=== PATIENT | female | born 1990 | race Caucasian/White ===

== ENCOUNTER 2016-10-23 17:21 | Emergency (ER) | payer MEDICAID ==
[2016-10-23] MEDS ORDERED: LIDOCAINE 1%-EPI 1:100000 20 ML MDV ONE (17:56)
[2016-10-23] MEDS ORDERED: SODIUM CHLORIDE 0.9% 1,000 ML IV ONE (18:07)
[2016-10-23] MEDS ORDERED: ONDANSETRON 4 MG/2 ML VIAL IVP STA (18:07)
[2016-10-23] MEDS ORDERED: ONDANSETRON 4 MG/2 ML VIAL ONE (18:23)
[2016-10-23] MEDS ORDERED: PROPOFOL 200 MG/20 ML VIAL IVP ONE (18:33)
[2016-10-23] MEDS ORDERED: PROPOFOL 200 MG/20 ML VIAL IVP STA (18:51)
[2016-10-23] MEDS ORDERED: KETOROLAC 60 MG/2 ML VIAL IVP STA (19:21)
[2016-10-23] MEDS ORDERED: KETOROLAC 30 MG/ML VIAL ONE (19:32)
[2016-10-23] MEDS ORDERED: PROMETHAZINE 25 MG/1 ML VIAL ONE (19:59)
[2016-10-23] MEDS ORDERED: oxyCOD/ACETAMIN 5 MG/325 MG TABLET PO STA (19:59)
[2016-10-23] MEDS ORDERED: PROMETHAZINE INJ 25 MG in SODIUM CHLORIDE 0.9% 50 ML IV STA (19:59)
[2016-10-23] MEDS ORDERED: oxyCOD/ACETAMIN 5 MG/325 MG TABLET PO ONE (20:00)
== END 2016-10-23 20:18 | disposition home or self-care (01) ==
DX: S03.03XA Dislocation of jaw, bilateral, initial encounter (principal); X58.XXXA Exposure to other specified factors, initial encounter; R11.2 Nausea with vomiting, unspecified; I10 Essential (primary) hypertension; Z86.73 Personal history of transient ischemic attack (TIA), and cerebral infarction without residual deficits; F17.200 Nicotine dependence, unspecified, uncomplicated
CPT/HCPCS: 21480; 36415; 80053; 81003; 81025; 83690; 94770; 96365; 96375; 99152; 99283; 99284; A9270

== ENCOUNTER 2017-05-03 14:45 | Observation (INO) | payer MEDICAID ==
[2017-05-03 16:56] LABS: BILIRUBIN,URINE NEGATIVE (NEGATIVE)
[2017-05-03 17:00] LABS: HCG UR QUAL NEGATIVE; UA CHARGE (STRIP ONLY) YES; UR CULTURE IF IND NOT INDICATED
[2017-05-03] MEDS ORDERED: SODIUM CHLORIDE 0.9% 1,000 ML IV ONE (17:20)
--- NOTE | 2017-05-03 17:28 | ED Physician Documentation ---
History of Present Illness - Stated complaint Stated Complaint: DIARRHEA,BODY NUMBNESS - Chief complaint Chief Complaint: Abd Pain - History obtained from History obtained from: Patient - History of Present Illness Timing: Other (26-year-old woman with recurrent C. difficile infection, finished last course of antibiotics, vancomycin about a week ago but she has persistent diarrhea, stomach cramps, and vomiting. Today at approximately 2:20 PM she had a sudden onset occipital headache and developed right-sided numbness and tingling but she is able to walk. It is different than prior headaches, more sudden in onset. There is no associated fever acutely but she has been having fevers on and off with the C. difficile.) Review of Systems Ten Systems: 10 systems reviewed and negative Constitutional: reports: Fever, Chills Nose: denies: Rhinorrhea / runny nose, Congestion Cardiac: denies: Chest pain / pressure, Palpitations Respiratory: denies: Dyspnea, Cough PD PAST MEDICAL HISTORY - Past Medical History Past Medical History: Yes Cardiovascular: Hypertension Respiratory: Asthma Neuro: TIA, Headache/migraine Endocrine/Autoimmune: None GI: None [employer]: Other : None HEENT: None Psych: Depression, Anxiety Musculoskeletal: None Derm: None - Past Surgical History Past Surgical History: No /F[employer]KE [employer]: section, Tubal ligation - Present Medications Home Medications: Ambulatory Orders Medication Instructions Recorded Confirmed Enalapril [Vasotec] 10 mg PO DAILY 05/06/16 10/23/16 Labetalol [Trandate] 200 mg PO BID 05/06/16 10/23/16 Sertraline HCl [Zoloft] 100 mg PO DAILY 05/06/16 10/23/16 cloNIDine 0.1 MG PATCH 1 patch TOP TITR 06/18/16 10/23/16 [[id number]] Ibuprofen [Motrin] 800 mg PO Q8H PRN #30 tablet 08/01/16 Progesterone,Micronized 10 mg PO DAILY 08/01/16 10/23/16 [Progesterone] Meloxicam [Mobic] 7.5 mg PO BIDWM PRN #15 tablet 10/23/16 Ondansetron HCl [Zofran] 4 mg PO Q6H PRN #10 tablet 10/23/16 - Allergies Allergies/Adverse Reactions: Allergies Allergy/AdvReac Type Severity Reaction Status Date / Time No Known Drug Allergies Allergy Verified 10/23/16 17:28 - Social History Does the pt smoke?: Yes Smoking Status: Light tobacco smoker Does the pt drink ETOH?: No Does the pt have substance abuse?: No - Immunizations Immunizations are current?: Yes - POLST Patient has POLST: No PD ED PE NORMAL - Vitals Vital signs reviewed: Yes - General General: Alert and oriented X 3, No acute distress - HEENT HEENT: PERRL, EOMI - Neck Neck: Supple, no meningeal sign, No bony TTP - Cardiac Cardiac: RRR, No murmur - Respiratory Respiratory: No respiratory distress, Clear bilaterally - Abdomen Abdomen: Normal bowel sounds, Soft, Non tender - Derm Derm: Normal color, Warm and dry - Extremities Extremities: No edema, No calf tenderness / cord - Neuro Neuro: Alert and oriented X 3, No motor deficit, No sensory deficit, Normal speech - Psych Psych: Normal mood, Normal affect Results - Vitals Vitals: Vital Signs - 24 hr 05/03/17 05/03/17 05/03/17 15:02 15:18 16:48 Temperature 36.6 C Heart Rate 107 H 118 H 110 H Respiratory 18 18 17 Rate Blood Pressure 170/127 H 166/120 H 152/98 H O2 Saturation 100 100 99 05/03/17 05/03/17 05/03/17 19:00 19:01 19:15 Temperature 36.6 C Heart Rate 87 Respiratory 16 Rate Blood Pressure 170/96 H 172/113 H 162/92 H O2 Saturation 99 100 99 05/03/17 05/03/17 05/03/17 19:30 20:10 20:15 Temperature Heart Rate Respiratory Rate Blood Pressure 148/90 H 125/83 H 128/63 O2 Saturation 99 99 98 05/03/17 05/03/17 20:45 21:15 Temperature Heart Rate 66 Respiratory Rate Blood Pressure 126/79 126/82 H O2 Saturation 99 98 Oxygen O2 Source Room air - Labs Labs: Microbiology 05/03/17 Unknown Clostridium difficile (PCR) - Final Stool Laboratory Tests 05/03/17 05/03/17 05/03/17 16:35 17:57 17:57 WBC 7.4 RBC 4.75 Hgb 11.0 L Hct 34.3 L MCV 72.3 L MCH 23.1 L MCHC 32.0 RDW 18.9 H Plt Count 253 MPV 8.9 Neut # 4.6 Lymph # 2.1 [place] # 0.5 Eos # 0.1 Baso # 0.1 Absolute Nucleated RBC 0.01 Nucleated RBCs 0.1 PT 9.7 L INR 0.9 Sodium Potassium Chloride Carbon Dioxide Anion Gap BUN Creatinine Estimated GFR (MDRD) Glucose Calcium Total Bilirubin AST ALT Alkaline Phosphatase Total Protein Albumin Globulin Albumin/Globulin Ratio Lipase Urine Color YELLOW Urine Clarity CLEAR Urine pH 7.0 Ur Specific [place] 1.020 Urine Protein NEGATIVE Urine Glucose (UA) NEGATIVE Urine Ketones NEGATIVE Urine Occult Blood NEGATIVE Urine Nitrite NEGATIVE Urine Bilirubin NEGATIVE Urine Urobilinogen 0.2 (NORMAL) Ur Leukocyte Esterase NEGATIVE Ur Microscopic Review NOT INDICATED Urine Culture Comments NOT INDICATED Urine HCG, Qual NEGATIVE CSF Color CSF Clarity Xanthrochromic CSF WBC CSF RBC CSF Cell Count Tube # CSF Glucose CSF Total Protein 05/03/17 05/03/17 17:57 21:05 WBC RBC Hgb Hct MCV MCH MCHC RDW Plt Count MPV Neut # Lymph # [place] # Eos # Baso # Absolute Nucleated RBC Nucleated RBCs PT INR Sodium 138 Potassium 3.7 Chloride 105 Carbon Dioxide 22 Anion Gap 11.0 BUN 18 Creatinine 0.6 Estimated GFR (MDRD) 119 Glucose 101 H Calcium 9.2 Total Bilirubin 0.5 AST 22 ALT 19 Alkaline Phosphatase 50 Total Protein 7.4 Albumin 4.2 Globulin 3.2 Albumin/Globulin Ratio 1.3 Lipase 25 Urine Color Urine Clarity Urine pH Ur Specific [place] Urine Protein Urine Glucose (UA) Urine Ketones Urine Occult Blood Urine Nitrite Urine Bilirubin Urine Urobilinogen Ur Leukocyte Esterase Ur Microscopic Review Urine Culture Comments Urine HCG, Qual CSF Color COLORLESS CSF Clarity CLEAR Xanthrochromic ABSENT CSF WBC 1 CSF RBC 7 H CSF Cell Count Tube # CSF TUBE# 3 CSF Glucose 60 CSF Total Protein 28 - Rads (name of study) CThead with angio Radiology: EMP read contemporaneously (negative) Procedures - General procedure General procedure: She was difficult for IV access, multiple nurses tried and failed. I personally put a long 20-gauge IV in the right deep brachial vein using real- time ultrasound guidance which flushed and dariana well. - Lumbar Puncture Position: Sitting Location: L3-L4 Anesthesia: Local lidocaine CSF: Clear Other: Sterile prep and drape, Patient tolerated well, No complications PD MEDICAL DECISION MAKING - ED course ED course: 26-year-old woman presents with acute onset severe headache associated with right-sided neurologic deficits. Given the concern for subarachnoid hemorrhage given the severe sudden onset headache TPA was not considered. She was sent for CT angina gram of the head and this demonstrated no abnormalities, this was followed by an LP which was without significant abnormalities as well. Throughout this time she was examined repeatedly and there was no significant change in her neurologic findings. We treated her for migraine with Compazine and Benadryl without change in her headache was persistent. Spoke with Dr. Fair for observation at 9:55 PM who asked that we consult neurology given her young age and atypical findings which will be done. Spoke with Dr. Melba Quintana at [facility] and the case was discussed who agreed with observation for MRI and MRV which was passed along to Dr. Fair. Departure - Departure Disposition: ED Place in Observation Clinical Impression: Headache, Stroke-like episode Condition: Stable NIHSS - Level of Consciousness Level of consciousness: (0) Alert, Keenly responsive LOC Questions: (0) Answers both Q's correct LOC Commands: (0) Performs both correctly - Gaze Best Gaze: (0) Normal - Visual Visual: (0) No loss - Facial Palsy Facial Palsy: (1) Minor paralysis (right) - Motor Arms (both separate) Motor Arm (right): (1) Drift (but not pronator) Motor Arm (left): (0) No drift - Motor Legs (both separate) Motor Leg (right): (1) Drift Motor Leg (left): (0) No drift - Limb Ataxia Limb Ataxia: (0) Absent - Sensory Sensory: (1) [id number] loss (right side throughout- face, arm, leg) - Best Language Best Language: (0) No aphasia - Dysarthria Dysarthria: (0) Normal - Extinction and Inattention (formally neg Extinction and inattention: (0) No abnormality - Total Score/Results Total Score/Result: 4
[2017-05-03] MEDS ORDERED: IOPAMIDOL-300 100 ML VIAL ONE (17:30)
[2017-05-03] MEDS ORDERED: SODIUM CHLORIDE FLUSH 0.9% 10 ML SYRINGE IVP ONE (17:38)
[2017-05-03 18:05] LABS: BASOPHILS # (AUTO) 0.1 10^3/uL (0.0-0.1); BASOPHILS % (AUTO) 0.9 %; EOSINOPHILS # (AUTO) 0.1 10^3/uL (0.0-0.7); EOSINOPHILS % (AUTO) 1.5 %; HCT - HEMATOCRIT 34.3 % (37.0-47.0); LYMPHOCYTES # (AUTO) 2.1 10^3/uL (1.5-3.5); LYMPHOCYTES % (AUTO) 28.8 %; MEAN CORPUSCULAR HEMOGLOBIN 23.1 pg (27.0-31.0); MEAN CORPUSCULAR VOLUME 72.3 fL (81.0-99.0); MEAN PLATELET VOLUME 8.9 fL (7.9-10.8); MONOCYTES # (AUTO) 0.5 10^3/uL (0.0-1.0); MONOCYTES % (AUTO) 6.6 %; NEUTROPHILS # (AUTO) 4.6 10^3/uL (1.5-6.6); NEUTROPHILS % (AUTO) 62.2 %; NUCLEATED RED BLOOD CELLS AUTO 0.1 /100WBC; RED BLOOD COUNT 4.75 10^6/uL (4.20-5.40); RED CELL DISTRIBUTION WIDTH 18.9 % (12.0-15.0); UNCORRECTED WHITE BLOOD COUNT 7.4 x10^3/uL; WHITE BLOOD COUNT 7.4 x10^3/uL (4.8-10.8)
[2017-05-03 18:18] LABS: ALBUMIN/GLOBULIN RATIO 1.3 (1.0-2.2); BILIRUBIN,TOTAL 0.5 mg/dL (0.2-1.0); CALCIUM 9.2 mg/dL (8.5-10.3); CREATININE 0.6 mg/dL (0.4-1.0); POTASSIUM 3.7 mmol/L (3.5-5.0); TOTAL PROTEIN 7.4 g/dL (6.7-8.2)
[2017-05-03 18:20] LABS: INR 0.9 (0.8-1.2); PT - PROTHROMBIN TIME 9.7 secs (9.9-12.6)
[2017-05-03] MEDS ORDERED: LABETALOL 20 MG/4 ML SYRINGE IVP STA (18:39)
[2017-05-03] MEDS ORDERED: MORPHINE 2 MG/ML SYRINGE IVP STA (18:39)
[2017-05-03] MEDS ORDERED: IOPAMIDOL-300 100 ML VIAL IVP ONE (18:47)
[2017-05-03] MEDS ORDERED: MORPHINE 2 MG/ML SYRINGE ONE ×2 (19:10→19:34)
[2017-05-03] MEDS ORDERED: LABETALOL 20 MG/4 ML SYRINGE IVP ONE (19:11)
--- NOTE | 2017-05-03 19:33 | CT Preliminary Report ---
Exam: CT Head Angio Impression: Head CT No acute intracranial pathology is identified. CT angiogram head Normal examination. SITE ID: [id number]
[2017-05-03] MEDS ORDERED: diphenhydrAMINE INJ 50 MG/ML VIAL IVP STA (19:54)
[2017-05-03] MEDS ORDERED: PROCHLORPERAZINE 10 MG/2 ML VIAL IVP STA (19:54)
[2017-05-03] MEDS ORDERED: PROCHLORPERAZINE 10 MG/2 ML VIAL ONE (20:08)
[2017-05-03] MEDS ORDERED: diphenhydrAMINE INJ 50 MG/ML VIAL ONE (20:08)
--- NOTE | 2017-05-03 20:16 | CT Report ---
CT HEAD WITHOUT AND WITH CONTRAST AND CT ANGIOGRAM HEAD INDICATION: 26-year-old female with "right-sided deficits". Please assess. TECHNIQUE: Head CT: Sequential 5 mm axial images were obtained through the brain, prior to and following the CT angiogram . CT angiogram head: 80 mL of Isovue-300 contrast were injected at a rapid rate through a large bore antecubital intraveno us catheter. The head was scanned helically during arterial phase. Data was reconstructed into 0.5 mm axial images. In addition, MIP reconstructions have been generated in multiple projections to allow better assessment of the intracranial arteries. In accordance with CT protocol optimization, one or more of the following dose reduction techniques w ere utilized for this exam: automated exposure control, adjustment of mA and/or KV based on patient s ize, or use of iterative reconstructive technique. COMPARISON: 06/02/2016. FINDINGS: There is cerebellar tonsillar ectopia. The tonsils descend into the foramen magnum. There appears to be mild descent of the right tonsil below the plane of the tonsil below the plane of the foramen magn um suggesting that a Chiari I malformation is unlikely. Ventricular size is normal. There appears to be poor sears-white differentiation in the anterior frontal lobes bilaterally (see im age 11 of series 3). However, the findings are similar to the previous study, suggesting that this re presents artifact, rather than ischemia or other pathology. Attenuation of cortex white matter is oth erwise unremarkable. No intracranial hemorrhage or abnormal extra-axial fluid collection. No enhancing space-occupying mass lesion is demonstrated. There appears to be normal intravascular co ntrast enhancement in the dural venous sinuses and deep venous structures. This effectively excludes the possibility of venous thrombosis. The mastoid air cells and middle ear cavities are clear. The imaged paranasal sinuses appear clear. CT angiogram head: Anterior circulation: The internal carotid arteries appear widely patent bilaterally. No ICA aneurysm is identified. The A1 segments of the anterior cerebral arteries are codominant. An anterior communicating artery is demon strated. There appears to be good filling of the A2 and distal ZEYAD branches bilaterally. No obvious A CA branch occlusion is identified. The middle cerebral arteries are unremarkable. No aneurysm is identified and there is no obvious occl usion or hemodynamically significant stenosis affecting main branches of either MCA. There appear to be a similar number of opacified M3 and M4 branches bilaterally. Posterior circulation: The vertebral arteries are widely patent. Neither PICA is identified. The PICA territories appear to be supplied by the AICAs (normal anatomical variants). The basilar artery, superior cerebellar arteri es and posterior cerebral arteries appear widely patent. There is a moderate-sized left posterior com municating artery. No obvious right posterior communicator is demonstrated. No aneurysms are seen jzaiel sing from the basilar artery trunk or apex. IMPRESSION: Head CT: No acute intracranial pathology is identified. CT angiogram head: Normal examination. Referring Provider Line: [phone] SITE ID: [id number]
[2017-05-03] MEDS ORDERED: HYDROmorphone 1 MG/ML CARPUJECT IVP STA (20:51)
[2017-05-03] MEDS ORDERED: HYDROmorphone 1 MG/ML CARPUJECT ONE (20:56)
[2017-05-03 21:35] LABS: CLARITY,CSF CLEAR (CLEAR); COLOR,CSF COLORLESS (COLORLESS); CSF XANTHOCHROMIA ABSENT (ABSENT)
[2017-05-03 21:36] LABS: WHITE BLOOD CELL,CSF 1 /mm^3 (0-5)
[2017-05-03 21:41] LABS: CSF - GLUCOSE 60 mg/dL (45-70)
[2017-05-03] MEDS ORDERED: KETOROLAC 60 MG/2 ML VIAL IVP STA (21:53)
[2017-05-03] MEDS ORDERED: KETOROLAC 60 MG/2 ML VIAL ONE (22:14)
[2017-05-03] MEDS ORDERED: MELOXICAM 7.5 MG TABLET PO PRN (22:20)
[2017-05-03] MEDS ORDERED: IBUPROFEN 800 MG TABLET PO PRN (22:20)
[2017-05-03] MEDS ORDERED: ZOLPIDEM 5 MG TABLET PO PRN (22:21)
[2017-05-03] MEDS ORDERED: ACETAMINOPHEN 325 MG TABLET PO PRN (22:21)
[2017-05-03] MEDS ORDERED: SUMAtriptan 6 MG/0.5 ML VIAL SUBQ SCH (23:00)
[2017-05-03] MEDS: oxyCODONE 5 MG TABLET PO PRN (23:54)
[2017-05-04] MEDS ORDERED: SUMAtriptan 6 MG/0.5 ML VIAL SUBQ ONE (00:08)
[2017-05-04] MEDS: HYDROmorphone 1 MG/ML CARPUJECT IVP PRN ×4 (01:22→12:50)
[2017-05-04] MEDS: SODIUM CHLORIDE FLUSH 0.9% 10 ML SYRINGE IVP PRN ×5 (01:23→15:48)
--- NOTE | 2017-05-04 02:18 | HISTORY & PHYSICAL EXAMINATION ---
Chief Complaint - Chief Complaint Chief Complaint: Headache History of Present Illness - Admitted From Admitted From:: Emergency department - History Obtained From Records Reviewed: Yes History obtained from: Patient Exam Limitations: None - History of Present Illness HPI Comment/Other: Patient is a 26-year-old female with a past medical history significant for hypertension, migraine headaches, fibromyalgia, recurrent Clostridium difficile over the last year and chronic abdominal pain secondary to the C. difficile who presents to the emergency department with a chief complaint of headache. The patient states that this afternoon around 2 PM she began having some abdominal cramping and had an episode of diarrhea after which she took a bath. She states that right after she finished her bath she began having a headache. She states the headache started in the posterior part of her head and went down her neck. She states that the headache acutely went to becoming the most severe headache she has ever had. She rated it at 10 out of 10. She states that along with the headache she began to feel numbness down her right arm and leg but she denies any weakness at that time. She states that her mother of a brain aneurysm and therefore she became very concerned and decided to come into the emergency department. She states that initially she felt numbness and tingling down her right arm and leg but when she was examined in the emergency department she noticed that she had weakness of both her right arm and leg along with a right facial droop. The patient denies any blurred vision, diplopia, runny nose, sore throat, nasal congestion, chest pain, shortness of air, orthopnea, PND, increased lower extremity swelling, she does admit to some abdominal cramping, she admits to diarrhea, she denies any nausea or vomiting, she denies any urinary urgency, frequency, dysuria, joint pains, muscle aches, back pain, she does admit to some neck stiffness she denies any changes in her appetite, recent unintentional weight loss, fevers or chills. On presentation to the emergency department the patient was tachycardic and hypertensive with blood pressure of 170/127 otherwise she was afebrile and not in any respiratory distress. The patient initially underwent routine lab work which showed a mild anemia otherwise was unremarkable. The patient's urinalysis was negative. She underwent a CT head and angiogram of her brain which showed no acute intracranial abnormality. The patient then underwent a lumbar puncture which showed just 1 WBC and 7 RBCs but appeared unremarkable. The emergency room physician spoke with neurology at [facility] and the neurologist on-call recommended that the patient be placed in observation for an MRI and MRV of the brain. It was felt that the patient most likely had a complex migraine causing her right-sided weakness and loss of sensation on the right side. However it was felt that the patient needed a complete workup to rule out stroke. 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 Social History Notes: The patient lives in [place] she grew up in on [facility] as her dad was in the . The patient lives with her boyfriend they are not but she has 3 children with her boyfriend. She has been 5 times. She does smoke 3-4 cigarettes a day since the age of 18 she does drink an occasional glass of wine with dinner and does indulge in marijuana. edibles. - Substance History Use: Uses substance without health or social issues: Tobacco Abuse: Recurrent use of substance despite neg consequences: NONE Dependence: Experiences withdrawal or developed tolerances: NONE - POLST Patient has POLST: No POLST Status: Full Code Meds/Allgy - Home Medications Home Medications: Ambulatory Orders Medication Instructions Recorded Confirmed Enalapril [Vasotec] 10 mg PO DAILY 05/06/16 10/23/16 Labetalol [Trandate] 200 mg PO BID 05/06/16 10/23/16 Sertraline HCl [Zoloft] 100 mg PO DAILY 05/06/16 10/23/16 cloNIDine 0.1 MG PATCH 1 patch TOP TITR 06/18/16 10/23/16 [[id number]] Ibuprofen [Motrin] 800 mg PO Q8H PRN #30 tablet 08/01/16 Progesterone,Micronized 10 mg PO DAILY 08/01/16 10/23/16 [Progesterone] Meloxicam [Mobic] 7.5 mg PO BIDWM PRN #15 tablet 10/23/16 Ondansetron HCl [Zofran] 4 mg PO Q6H PRN #10 tablet 10/23/16 - Allergies Allergies/Adverse Reactions: Allergies Allergy/AdvReac Type Severity Reaction Status Date / Time No Known Drug Allergies Allergy Verified 10/23/16 17:28 Review of Systems - Other Findings Other Findings: A comprehensive review of systems was performed the pertinent positives and negatives are stated above in the HPI Exam - Vital Signs Reviewed Vital Signs: Yes Vital Signs: Vital Signs x48h Temp Pulse Resp BP Pulse Ox 05/04/17 01:00 36.6 C 76 18 123/79 98 05/03/17 23:06 36.6 C 76 19 157/90 H 99 - Physical Exam General Appearance: positive: No acute distress, Alert Eyes Bilateral: positive: Normal inspection, PERRL, EOMI, No lid inflammation, Conjunctivae nml, No scleral icterus ENT: positive: ENT inspection nml, Pharynx nml, No signs of dehydration. negative: Purulent nasal drainage, Pharyngeal erythema, Oral lesions Neck: positive: Nml inspection, Thyroid nml, No JVD, Trachea midline, Stiff neck. negative: Thyromegaly, Lymphadenopathy (R), Lymphadenopathy (L), Kernig' s sign, Brudzinski's sign, Carotid bruit, Tracheal deviation Respiratory: positive: Chest non-tender, No respiratory distress, Breath sounds nml. negative: Wheezes, Rales, Rhonchi Cardiovascular: positive: Regular rate & rhythm, No murmur, No gallop Peripheral Pulses: positive: 2+ Abdomen: positive: Non-tender, No organomegaly, Nml bowel sounds, No distention. negative: Guarding, Rebound, Hepatomegaly Back: positive: Nml inspection. negative: CVA tenderness (R), CVA tenderness (L ) Skin: positive: Color nml, No rash, Warm. negative: Cyanosis, Pallor Extremities: positive: Non-tender, Full ROM, Nml appearance, No pedal edema Neurologic/Psychiatric: positive: Oriented x3, Mood/affect nml, Weakness (Right upper and lower extremity are 4/5 strength), Sensory loss (Right upper and lower extremity), Facial droop (Right) Conclusion/Plan - Problem List (1) Right sided weakness Conclusion/Plan: The patient presented to the emergency department with a headache and right- sided numbness. On examination the patient was found to have right arm and leg weakness along with a right facial droop. Patient underwent CT head and CT angiogram of the brain both of which were negative. Patient also underwent a lumbar puncture which was negative. Neurology at [facility] was consulted and neurologist recommended MRI and MRV along with observation for neuro checks. She felt the patient likely had complex migraine but could not rule out stroke without further evaluation. Plan: Neurochecks every 4 hours MRI and MRV of the brain Echocardiogram Telemetry monitoring Imitrex for migraine headache Aspirin 325 mg and Lipitor 80 mg Lipid profile and hbA1C Allow for permissive hypertension (2) Headache Conclusion/Plan: Patient presented with headache. The patient does have history of migraines and is on Topamax at home. She states that despite the Topamax she had the worst headache of her life. The patient also had right-sided weakness and facial droop along with right-sided sensory loss associated with the headache. Patient appears to most likely had complex migraine versus stroke. Patient underwent a CT head and CT angiogram brain which were negative. Plan: Place patient on Imitrex for migraine and ibuprofen as needed Neurochecks every 4 hours Patient will likely need outpatient neurology follow-up for complex migraines. MRI and MRV of the brain (3) Hypertension Conclusion/Plan: Patient has history of hypertension. Patient's blood pressure baric poorly controlled on presentation. Given the patient's focal neurologic deficits this was concerning for possibility of stroke. Plan: Continue patient's home labetalol and enalapril but allow for permissive hypertension with goal blood pressure less than 190 systolic and 105 diastolic. Qualifiers: Hypertension type: essential hypertension Qualified Code(s): I10 - Essential (primary) hypertension (4) Chronic pain Conclusion/Plan: Patient has chronic pain. She states that her pain is in the abdomen and has been there for the last year secondary to recurrent C. difficile. Patient's C. difficile has been treated multiple times including recent course of vancomycin which the patient is completed. Patient continues to have diarrhea and abdominal cramping but C. difficile on presentation was negative. Plan: Patient takes oxycodone at home while she is hospitalized will be placed on as needed ibuprofen, oxycodone and Dilaudid. - Lab Results Lab results reviewed: Yes Fish Bones: 05/03/17 17:57 05/03/17 17:57 Other Lab Results: Laboratory Results WBC 7.4 x10^3/uL (4.8-10.8) 05/03/17 17:57 RBC 4.75 10^6/uL (4.20-5.40) 05/03/17 17:57 Hgb 11.0 g/dL (12.0-16.0) L 05/03/17 17:57 Hct 34.3 % (37.0-47.0) L 05/03/17 17:57 MCV 72.3 fL (81.0-99.0) L 05/03/17 17:57 MCH 23.1 pg (27.0-31.0) L 05/03/17 17:57 MCHC 32.0 g/dL (32.0-36.0) 05/03/17 17:57 RDW 18.9 % (12.0-15.0) H 05/03/17 17:57 Plt Count 253 10^3/uL (130-450) 05/03/17 17:57 MPV 8.9 fL (7.9-10.8) 05/03/17 17:57 Neut # 4.6 10^3/uL (1.5-6.6) 05/03/17 17:57 Lymph # 2.1 10^3/uL (1.5-3.5) 05/03/17 17:57 [place] # 0.5 10^3/uL (0.0-1.0) 05/03/17 17:57 Eos # 0.1 10^3/uL (0.0-0.7) 05/03/17 17:57 Baso # 0.1 10^3/uL (0.0-0.1) 05/03/17 17:57 Absolute Nucleated RBC 0.01 x10^3/uL 05/03/17 17:57 Nucleated RBCs 0.1 /100WBC 05/03/17 17:57 PT 9.7 secs (9.9-12.6) L 05/03/17 17:57 INR 0.9 (0.8-1.2) 05/03/17 17:57 Sodium 138 mmol/L (135-145) 05/03/17 17:57 Potassium 3.7 mmol/L (3.5-5.0) 05/03/17 17:57 Chloride 105 mmol/L (101-111) 05/03/17 17:57 Carbon Dioxide 22 mmol/L (21-32) 05/03/17 17:57 Anion Gap 11.0 (6-13) 05/03/17 17:57 BUN 18 mg/dL (6-20) 05/03/17 17:57 Creatinine 0.6 mg/dL (0.4-1.0) 05/03/17 17:57 Estimated GFR (MDRD) 119 (>89) 05/03/17 17:57 Glucose 101 mg/dL (70-100) H 05/03/17 17:57 Calcium 9.2 mg/dL (8.5-10.3) 05/03/17 17:57 Total Bilirubin 0.5 mg/dL (0.2-1.0) 05/03/17 17:57 AST 22 IU/L (10-42) 05/03/17 17:57 ALT 19 IU/L (10-60) 05/03/17 17:57 Alkaline Phosphatase 50 IU/L (42-121) 05/03/17 17:57 Total Protein 7.4 g/dL (6.7-8.2) 05/03/17 17:57 Albumin 4.2 g/dL (3.2-5.5) 05/03/17 17:57 Globulin 3.2 g/dL (2.1-4.2) 05/03/17 17:57 Albumin/Globulin Ratio 1.3 (1.0-2.2) 05/03/17 17:57 Lipase 25 U/L (22-51) 05/03/17 17:57 Urine Color YELLOW 05/03/17 16:35 Urine Clarity CLEAR (CLEAR) 05/03/17 16:35 Urine pH 7.0 PH (5.0-7.5) 05/03/17 16:35 Ur Specific [place] 1.020 (1.002-1.030) 05/03/17 16:35 Urine Protein NEGATIVE mg/dL (NEGATIVE) 05/03/17 16:35 Urine Glucose (UA) NEGATIVE mg/dL (NEGATIVE) 05/03/17 16:35 Urine Ketones NEGATIVE mg/dL (NEGATIVE) 05/03/17 16:35 Urine Occult Blood NEGATIVE (NEGATIVE) 05/03/17 16:35 Urine Nitrite NEGATIVE (NEGATIVE) 05/03/17 16:35 Urine Bilirubin NEGATIVE (NEGATIVE) 05/03/17 16:35 Urine Urobilinogen 0.2 (NORMAL) E.U./dL (NORMAL) 05/03/17 16:35 Ur Leukocyte Esterase NEGATIVE (NEGATIVE) 05/03/17 16:35 Ur Microscopic Review NOT INDICATED 05/03/17 16:35 Urine Culture Comments NOT INDICATED 05/03/17 16:35 Urine HCG, Qual NEGATIVE 05/03/17 16:35 CSF Color COLORLESS (COLORLESS) 05/03/17 21:05 CSF Clarity CLEAR (CLEAR) 05/03/17 21:05 Xanthrochromic ABSENT (ABSENT) 05/03/17 21:05 CSF WBC 1 /mm^3 (0-5) 05/03/17 21:05 CSF RBC 7 /mm^3 (0-1) H 05/03/17 21:05 CSF Cell Count Tube # CSF TUBE# 3 05/03/17 21:05 CSF Glucose 60 mg/dL (45-70) 05/03/17 21:05 CSF Total Protein 28 mg/dL (15-45) 05/03/17 21:05 - Diagnostic Imaging Results Diagnostic Imaging Results: positive: Final report reviewed Diagnostic Imaging Results Comments: CT head Impression: No acute intracranial pathology is identified CT angiogram head Impression: Normal examination Issues/Core Measures - Anticipated LOS Anticipated Stay Length: Less than 2 midnights - DVT/VTE - Prophylaxis VTE/DVT Device ordered at admit?: Yes
[2017-05-04] MEDS: SODIUM CHLORIDE FLUSH 0.9% 10 ML SYRINGE IVP SCH ×3 (05:00→14:13)
[2017-05-04 05:23] LABS: BASOPHILS # (AUTO) 0.1 10^3/uL (0.0-0.1); BASOPHILS % (AUTO) 1.1 %; EOSINOPHILS # (AUTO) 0.1 10^3/uL (0.0-0.7); EOSINOPHILS % (AUTO) 2.3 %; HCT - HEMATOCRIT 30.5 % (37.0-47.0); HGB - HEMOGLOBIN 9.7 g/dL (12.0-16.0); LYMPHOCYTES # (AUTO) 1.9 10^3/uL (1.5-3.5); LYMPHOCYTES % (AUTO) 32.4 %; MEAN CORPUSCULAR HEMOGLOBIN 23.3 pg (27.0-31.0); MEAN CORPUSCULAR HGB CONC 31.8 g/dL (32.0-36.0); MEAN CORPUSCULAR VOLUME 73.1 fL (81.0-99.0); MEAN PLATELET VOLUME 8.5 fL (7.9-10.8); MONOCYTES # (AUTO) 0.5 10^3/uL (0.0-1.0); MONOCYTES % (AUTO) 8.8 %; NEUTROPHILS # (AUTO) 3.3 10^3/uL (1.5-6.6); NEUTROPHILS % (AUTO) 55.4 %; RED BLOOD COUNT 4.17 10^6/uL (4.20-5.40); RED CELL DISTRIBUTION WIDTH 18.7 % (12.0-15.0); UNCORRECTED WHITE BLOOD COUNT 5.9 x10^3/uL; WHITE BLOOD COUNT 5.9 x10^3/uL (4.8-10.8)
[2017-05-04 05:28] LABS: INR 0.9 (0.8-1.2); PT - PROTHROMBIN TIME 10.3 secs (9.9-12.6)
[2017-05-04 05:37] LABS: ALBUMIN/GLOBULIN RATIO 1.2 (1.0-2.2); BILIRUBIN,TOTAL 0.5 mg/dL (0.2-1.0); CALCIUM 8.5 mg/dL (8.5-10.3); CREATININE 0.7 mg/dL (0.4-1.0); POTASSIUM 3.4 mmol/L (3.5-5.0); TOTAL PROTEIN 6.4 g/dL (6.7-8.2)
[2017-05-04 05:40] LABS: CHOL/HDL RATIO 3.1 (<4.4); CHOLESTEROL 162 mg/dL; HDL CHOLESTEROL 53 mg/dL; LDL/HDL RATIO 1.4 (<4.4); TRIGLYCERIDES 187 mg/dL; VLDL CHOLESTEROL 37 mg/dL
[2017-05-04 06:10] LABS: HEMOGLOBIN A1C 0.32 g/dL
[2017-05-04] MEDS: oxyCODONE 5 MG TABLET PO PRN ×3 (06:34→17:43)
[2017-05-04] MEDS: ONDANSETRON 4 MG/2 ML VIAL IVP PRN ×2 (07:01→12:49)
[2017-05-04] MEDS ORDERED: MULTIVITAMIN TABLET PO SCH (08:00)
[2017-05-04] MEDS ORDERED: ASPIRIN 325 MG TABLET PO SCH (08:00)
[2017-05-04] MEDS: PROCHLORPERAZINE 10 MG/2 ML VIAL IVP PRN ×2 (08:31→14:13)
[2017-05-04] MEDS ORDERED: FAMOTIDINE 20 MG TABLET PO SCH (09:00)
[2017-05-04] MEDS ORDERED: LABETALOL 100 MG TABLET PO SCH (09:00)
[2017-05-04] MEDS ORDERED: POLYETHYLENE GLYCOL 3350 17 GM PACKET PO SCH (09:00)
[2017-05-04] MEDS ORDERED: SERTRALINE 50 MG TABLET PO SCH (09:00)
[2017-05-04] MEDS ORDERED: ENALAPRIL 5 MG TABLET PO SCH (09:00)
[2017-05-04] MEDS ORDERED: PROGESTERONE MICRONIZED PO SCH (09:00)
[2017-05-04] MEDS ORDERED: LORazepam 2 MG/ML SYRINGE IVP SCH (13:00)
[2017-05-04 17:31] VITALS: BP 136/74
--- NOTE | 2017-05-04 18:30 | MRI Preliminary Report ---
Exam: MRI Brain W/O Impressions: 1. 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 Otherwise negative study. [facility] SITE ID: [id number]
--- NOTE | 2017-05-04 18:32 | MRI Preliminary Report ---
Exam: MRI MRV-Brain Venous W/O Impressions: 1. Negative MR venogram brain. [facility] SITE ID: [id number]
--- NOTE | 2017-05-04 18:33 | MRI Report ---
EXAM: MRI BRAIN WITHOUT CONTRAST EXAM DATE: 05/04/2017 04:45 PM. CLINICAL HISTORY: Right sided weakness, right facial droop. COMPARISON: Accompanying MR venogram brain. Prior MRI brain study 12/13/2014. Prior CT angiogram head study 05/03/2017. TECHNIQUE: Multiplanar, multisequence T1-weighted and fluid-sensitive MR sequences of the brain were performed. Sequences optimized for routine evaluation. Other: None. IV Contrast: None. Findings: Relevant images are indicated (image number, series number). There is no acute or subacute ischemic change in the brain. Gradient echo imaging negative. There is no hemorrhage, mass or midline shift. Ventricles are not dilated. There is no cortical atrophy. There are normal expected vascular flow voids of the major arteries and veins. Basal cisterns are patent. Bilateral IACs, bilateral Meckel's cave is negative. Orbital contents negative. Paranasal sinuses, ma stoid air cells negative. There is no white matter disease. Pituitary, midbrain unremarkable. 3.6 mm mild cerebellar ectopia present. Craniocervical junction otherwise negative. Impressions: 1. 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 Otherwise negative study. [facility] Referring Provider Line: [phone] SITE ID: [id number]
--- NOTE | 2017-05-04 18:34 | Discharge Plan ---
Discharge Plan Disposition: Home, Self Care Condition: Stable Prescriptions: Multivitamin [Theragran] 1 tab PO DAILYWM #30 tablet Diet: Regular Activity Restrictions: Activity as Tolerated Shower Restrictions: No Driving Restrictions: No Weight Bearing: Full Weight Instruction Topics: Headaches Migraines and Cluster, Headache Migraine Triggers Prevent Additional Instructions or Follow Up instructions: PLEASE SEE YOUR PRIMARY CARE PROVIDER IN THE NEXT WEEK. YOU NEED TO CONTINUE TO TAKE ALL YOUR HOME MEDICATIONS. YOU NEED TO FOLLOWUP WITH NEUROLOGY WITHIN THE NEXT WEEK. YOU WILL NEED THE REFERRAL FROM YOUR PRIMARY CARE PROVIDER YOU NEED TO EAT A LOW INFLAMMATORY DIET- AVOID TRIGGERS SUCH GLUTEN AND DAIRY. THESE CAN AGGRAVATE YOUR SYMPTOMS IF YOU CONTINUE TO HAVE WEAKNESS YOU NEED TO RETURN TO THE ER OR CALL YOUR PRIMARY CARE PROVIDER. YOU NEED TO RETURN TO THE ER IF YOU EXPERIENCE CHEST PAIN OR SHORTNESS OF BREATH No Smoking: If you smoke, Please STOP! Call for help.
--- NOTE | 2017-05-04 18:35 | MRI Report ---
EXAM: MR VENOGRAM BRAIN EXAM DATE: 05/04/2017 04:24 PM. CLINICAL HISTORY: Right sided weakness. COMPARISON: Accompanying MRI brain, prior CT angiogram brain 05/03/2017. TECHNIQUE: Multiplanar, multisequence MRV sequences of the brain were performed. Other: None. Post-pr ocessing: Multiplanar 3D MIP reconstructions. IV Contrast: None. Findings: Relevant images are indicated (image number, series number). There is no evidence for venous sinus thrombosis. Patent major draining veins of the brain. Impressions: 1. Negative MR venogram brain. [facility] Referring Provider Line: [phone] SITE ID: [id number]
--- NOTE | 2017-05-04 18:41 | DISCHARGE SUMMARY ---
"Discharge Summary Admit Date: 05/03/17 Discharge Date: 05/04/17 Discharging Provider: VANESSA VIRK APRN Code Status: Attempt Resuscitation Condition at Discharge: Stable Discharge Disposition: 01 Home, Self Care Discharge Facility Name: HOME - DIAGNOSES Admission Diagnoses: 1. ACUTE RIGHT SIDED WEAKNESS WITH POSS CVA/TIA 2. ACUTE ON CHRONIC MIGRAINOUS HEADACHE 3. ESSENTIAL HYPERTENSION 4. ACUTE ON CHONIC PAIN WITH PROBABLE FIBROMYALGIA Discharge Diagnoses with Status of Each Condition: 1. ACUTE RIGHT SIDED WEAKNESS WITH HEADACHE, CLUSTER 2. CHRONIC MIGRAINE HEADACHES WITHOUT AURA 3. ESSENTIAL HYPERTENSION 4. ACUTE ON CHONIC PAIN WITH FIBROMYALGIA 5. CANNABIS USAGE, UNCOMPLICATED WITHOUT DEPENDENCE 6. NICOTINE DEPENDENCE, CIGARETTES UNCOMPLICATED - HPI History of Present Illness: Patient is a 26-year-old female with a past medical history significant for hypertension, migraine headaches, fibromyalgia, recurrent Clostridium difficile over the last year and chronic abdominal pain secondary to the C. difficile who presents to the emergency department with a chief complaint of headache. The patient states that this afternoon around 2 PM she began having some abdominal cramping and had an episode of diarrhea after which she took a bath. She states that right after she finished her bath she began having a headache. She states the headache started in the posterior part of her head and went down her neck. She states that the headache acutely went to becoming the most severe headache she has ever had. She rated it at 10 out of 10. She states that along with the headache she began to feel numbness down her right arm and leg but she denies any weakness at that time. She states that her mother of a brain aneurysm and therefore she became very concerned and decided to come into the emergency department. She states that initially she felt numbness and tingling down her right arm and leg but when she was examined in the emergency department she noticed that she had weakness of both her right arm and leg along with a right facial droop. The patient denies any blurred vision, diplopia, runny nose, sore throat, nasal congestion, chest pain, shortness of air, orthopnea, PND, increased lower extremity swelling, she does admit to some abdominal cramping, she admits to diarrhea, she denies any nausea or vomiting, she denies any urinary urgency, frequency, dysuria, joint pains, muscle aches, back pain, she does admit to some neck stiffness she denies any changes in her appetite, recent unintentional weight loss, fevers or chills. On presentation to the emergency department the patient was tachycardic and hypertensive with blood pressure of 170/127 otherwise she was afebrile and not in any respiratory distress. The patient initially underwent routine lab work which showed a mild anemia otherwise was unremarkable. The patient's urinalysis was negative. She underwent a CT head and angiogram of her brain which showed no acute intracranial abnormality. The patient then underwent a lumbar puncture which showed just 1 WBC and 7 RBCs but appeared unremarkable. The emergency room physician spoke with neurology at [facility] and the neurologist on-call recommended that the patient be placed in observation for an MRI and MRV of the brain. It was felt that the patient most likely had a complex migraine causing her right-sided weakness and loss of sensation on the right side. However it was felt that the patient needed a complete workup to rule out stroke. - CONSULTS | PROCEDURES Consultations: NONE Procedures: MRI MRA CTA ALL DIAGNOSTICS WERE NEGATIVE FOR ACUTE PROCESS - HOSPITAL COURSE Hospital Course: HOSPITAL COURSE AND TREATMENT - (1) Right sided weakness Conclusion/Plan: The patient presented to the emergency department with a headache and right- sided numbness. On examination the patient was found to have right arm and leg weakness along with a right facial droop. Patient underwent CT head and CT angiogram of the brain both of which were negative. Patient also underwent a lumbar puncture which was negative. Neurology at [facility] was consulted and neurologist recommended MRI and MRV along with observation for neuro checks. She felt the patient likely had complex migraine but could not rule out stroke without further evaluation. She was on Neurochecks every 4 hours, completed MRI and MRV of the brain, Echocardiogram, Telemetry monitoring, Imitrex for migraine headache Aspirin 325 mg and Lipitor 80 mg, Lipid profile and hbA1C and we allowed for permissive hypertension (2) Headache Patient presented with headache. The patient does have history of migraines and is on Topamax at home. She states that despite the Topamax she had the worst headache of her life. The patient also had right-sided weakness and facial droop along with right-sided sensory loss associated with the headache. Patient appears to most likely had complex migraine versus stroke. She underwent a CT head and CT angiogram brain which were negative. She continued on Imitrex for migraine and ibuprofen as needed. she had Neurochecks every 4 hours she was recommended to outpatient neurology follow-up for complex migraines. Both MRI and MRV of the brain were negative for acute process (3) Hypertension Patient has history of hypertension. Patient's blood pressure was poorly controlled on presentation. Given the patient's focal neurologic deficits this was concerning for possibility of stroke. She continued on home labetalol and enalapril but allowed for permissive hypertension with goal blood pressure less than 190 systolic and 105 diastolic. (4) Chronic pain Patient has chronic pain. She states that her pain is in the abdomen and has been there for the last year secondary to recurrent C. difficile. Patient's C. difficile has been treated multiple times including recent course of vancomycin which the patient is completed. Patient continued to have diarrhea and abdominal cramping but C. difficile on presentation was negative. She continued on oxycodone that she took at home while she was hospitalized and was placed on as needed ibuprofen, oxycodone and Dilaudid. - ALLERGIES Allergies/Adverse Reactions: Allergies Allergy/AdvReac Type Severity Reaction Status Date / Time No Known Drug Allergies Allergy Verified 10/23/16 17:28 - MEDICATIONS Home Medications: Ambulatory Orders Medication Instructions Recorded Confirmed RX: Enalapril [Vasotec] 10 mg PO DAILY 05/06/16 10/23/16 RX: Labetalol [Trandate] 200 mg PO BID 05/06/16 10/23/16 RX: Sertraline HCl [Zoloft] 100 mg PO DAILY 05/06/16 10/23/16 RX: cloNIDine 0.1 MG PATCH 1 patch TOP TITR 06/18/16 10/23/16 [[id number]] RX: Progesterone,Micronized 10 mg PO DAILY 08/01/16 10/23/16 [Progesterone] RX: Meloxicam [Mobic] 7.5 mg PO BIDWM PRN #15 tablet 10/23/16 RX: Ondansetron HCl [Zofran] 4 mg PO Q6H PRN #10 tablet 10/23/16 Oxycodone HCl/Acetaminophen 1 each PO Q6HR #20 tablet 05/04/17 [Oxycodone-Acetaminophen 5-325] Promethazine [Phenergan] 25 - 50 mg PO Q6H PRN #10 tab 05/04/17 RX: Multivitamin [Theragran] 1 tab PO DAILYWM #30 tablet 05/04/17 Tramadol HCl [Ultram] 50 mg PO Q8HR #21 tablet 05/04/17 - PHYSICAL EXAM AT DISCHARGE General Appearance: positive: No acute distress, Alert Eyes Bilateral: positive: Normal inspection, PERRL ENT: positive: ENT inspection nml, Pharynx nml, No signs of dehydration Neck: positive: Nml inspection, Thyroid nml, No JVD, Trachea midline Respiratory: positive: Chest non-tender, No respiratory distress, Breath sounds nml Cardiovascular: positive: Regular rate & rhythm, No murmur, No gallop Peripheral Pulses: positive: 2+ Abdomen: positive: Non-tender, No organomegaly, Nml bowel sounds, No distention Back: positive: Nml inspection. negative: CVA tenderness (R), CVA tenderness (L ) Skin: positive: Color nml, No rash, Warm, Dry Extremities: positive: Non-tender, Full ROM, Nml appearance, No pedal edema Neurologic/Psychiatric: positive: Oriented x3, CN's nml (2-12), Motor nml, Sensation nml, Mood/affect nml, Weakness (RIGHT SIDE) - LABS Result Diagrams: 05/04/17 05:13 05/04/17 05:13 Other Lab Results: Abnormal Lab Results 05/03/17 05/03/17 05/03/17 17:57 17:57 17:57 RBC Hgb 11.0 g/dL L g/dL (12.0-16.0) Hct 34.3 % L % (37.0-47.0) MCV 72.3 fL L fL (81.0-99.0) MCH 23.1 pg L pg (27.0-31.0) MCHC RDW 18.9 % H % (12.0-15.0) PT 9.7 secs L secs (9.9-12.6) Potassium Glucose 101 mg/dL H mg/dL (70-100) Total Protein Triglycerides HDL Cholesterol CSF RBC 05/03/17 05/04/17 05/04/17 21:05 05:13 05:13 RBC 4.17 10^6/uL L 10^6/uL (4.20-5.40) Hgb 9.7 g/dL L g/dL (12.0-16.0) Hct 30.5 % L % (37.0-47.0) MCV 73.1 fL L fL (81.0-99.0) MCH 23.3 pg L pg (27.0-31.0) MCHC 31.8 g/dL L g/dL (32.0-36.0) RDW 18.7 % H % (12.0-15.0) PT Potassium 3.4 mmol/L L mmol/L (3.5-5.0) Glucose 106 mg/dL H mg/dL (70-100) Total Protein 6.4 g/dL L g/dL (6.7-8.2) Triglycerides HDL Cholesterol CSF RBC 7 /mm^3 H /mm^3 (0-1) 05/04/17 05:13 RBC Hgb Hct MCV MCH MCHC RDW PT Potassium Glucose Total Protein Triglycerides 187 mg/dL H mg/dL ( - 149) HDL Cholesterol 53 mg/dL L mg/dL (60 - ) CSF RBC - DIAGNOSTIC IMAGING Diagnostic Imaging Results: Prelim report reviewed, Other (PENDING MRI AND MRA NOT AVAILABLE AT TIME OF DISCHARGE) - FOLLOW UP Follow Up: PATIENT WAS INSTRUCTED TO SEE HER PRIMARY CARE PROVIDER WITHIN ONE WEEK OF DISCHARGE. SHE WANTED TO GO HOME BEFORE THE RESULTS OF THE MRI AND MRA WERE AVAILABLE. SHE WAS STILL HAVING A HEADACHE BUT WAS ADAMANT ABOUT BEING ABLE TO GO HOME. PATIENT WAS TOLD ABOUT THE POTENTIAL RISKS FOR A STROKE BUT STILL WANTED TO LEAVE. PATIENT WAS GIVEN INSTRUCTIONS FOR FOLLOW UP WITH NEUROLOGY AND pcp AND VERBALLY UNDERSTOOD. - TIME SPENT Time Spent in Discharge (Minutes): 45 (DISCHARGE ASSESSMENT AND PLANNING AND EDUCATION)"
[2017-05-04] MEDS ORDERED: DICYCLOMINE 10 MG CAPSULE PO SCH (19:00)
[2017-05-04] MEDS ORDERED: oxyCODONE 5 MG TABLET PO ONE (19:02)
[2017-05-04] MEDS ORDERED: PROMETHAZINE INJ 25 MG in SODIUM CHLORIDE 0.9% 50 ML IV SCH (19:03)
[2017-05-04] MEDS ORDERED: PROMETHAZINE 25 MG/1 ML VIAL ONE (19:34)
[2017-05-04 19:35] LABS: IMMATURE RETIC FRACTION 0.51; RED BLOOD COUNT 4.22 10^6/uL (4.20-5.40)
[2017-05-04 19:59] LABS: IRON 47 ug/dL (28-170); TOTAL IRON BINDING CAPACITY 491 ug/dL (250-450); TRANSFERRIN 351 mg/dL (192-382)
[2017-05-04 20:12] LABS: FERRITIN 5.2 ng/mL (11.0-306.8)
[2017-05-04] MEDS ORDERED: ATORVASTATIN 40 MG TABLET PO SCH (21:00)
[2017-05-04] MEDS ORDERED: GABAPENTIN 300 MG CAPSULE PO SCH (22:00)
== END 2017-05-04 19:42 | disposition home or self-care (01) ==
LOC: ED 14:45 → OBS 22:21
PROVIDERS: ADMIT Internal Medicine; ATTEND Nurse Practitioner
DX: G43.009 Migraine without aura, not intractable, without status migrainosus (principal); R53.1 Weakness; I10 Essential (primary) hypertension; M79.7 Fibromyalgia; F17.210 Nicotine dependence, cigarettes, uncomplicated; R19.7 Diarrhea, unspecified; G89.29 Other chronic pain; R10.9 Unspecified abdominal pain; F32.9 Major depressive disorder, single episode, unspecified; F41.9 Anxiety disorder, unspecified; D64.9 Anemia, unspecified; Z79.899 Other long term (current) drug therapy; Z86.19 Personal history of other infectious and parasitic diseases
CPT/HCPCS: 36415; 62270; 70496; 70544; 70551; 80053; 80061; 81003; 81025; 82607; 82728; 82945; 83036; 83540; 83615; 83690; 83735; 84157; 84466; 85025; 85044; 85610; 87070; 87205; 87493; 89051; 93306; 96361; 96372; 96374; 96375; 96376; 99284; 99285; A9270; G0378; J1170; J2060; J2270; Q9967; 81001; 87086

== ENCOUNTER 2017-05-10 15:02 | Emergency (ER) | payer MEDICAID ==
--- NOTE | 2017-05-10 16:44 | ED Physician Documentation ---
PD HPI HEADACHE - Stated complaint Stated Complaint: TAYLOR - Chief complaint Chief Complaint: Neuro - History obtained from History obtained from: Patient - History of Present Illness Timing - onset: How many weeks ago (over a week) Timing - onset during: Light activity Timing - duration: Weeks Timing - details: Abrupt onset, Still present (she had had abrupt headache and seen in ED with labs, imaging and LP. These were negative. Since then, she has had different character of headache which is maximal with sitting up and standing, better lying and feels like her head is going to explode when she sits up.) Worst headache ever?: Worst headache ever? Location: Global Quality: Like head is exploding Associated symptoms: Nausea, Vomiting. No: Fever, Stiff neck, Weakness, Numbness Improved by: Rest, Other (lying flat) Worsened by: Other (sitting up and standing.) Similar symptoms before: No diagnosis Recently seen: Emergency Dept Review of Systems Constitutional: denies: Fever, Chills, Myalgias Eyes: denies: Loss of vision, Decreased vision, Photophobia Nose: denies: Rhinorrhea / runny nose, Congestion Throat: denies: Sore throat Respiratory: denies: Cough Skin: denies: Rash, Lesions Neurologic: denies: Focal weakness, Numbness PD PAST MEDICAL HISTORY - Past Medical History Cardiovascular: Hypertension Respiratory: Asthma Neuro: Headache/migraine Endocrine/Autoimmune: None GI: C.difficile MANAGER CANCER: Other : None HEENT: Other Psych: Depression, Anxiety Musculoskeletal: Fibromyalgia Derm: None - Past Surgical History Past Surgical History: No /MANAGER CANCER: section, Tubal ligation - Present Medications Home Medications: Ambulatory Orders Medication Instructions Recorded Confirmed Enalapril [Vasotec] 10 mg PO DAILY 05/06/16 05/10/17 Labetalol [Trandate] 200 mg PO BID 05/06/16 05/10/17 Sertraline HCl [Zoloft] 100 mg PO DAILY 05/06/16 05/10/17 cloNIDine 0.1 MG PATCH 1 patch TOP TITR 06/18/16 05/10/17 [[id number]] Progesterone,Micronized 10 mg PO DAILY 08/01/16 05/10/17 [Progesterone] Meloxicam [Mobic] 7.5 mg PO BIDWM PRN #15 tablet 10/23/16 05/10/17 Ondansetron HCl [Zofran] 4 mg PO Q6H PRN #10 tablet 10/23/16 05/10/17 Multivitamin [Theragran] 1 tab PO DAILYWM #30 tablet 05/04/17 05/10/17 Oxycodone HCl/Acetaminophen 1 each PO Q6HR #20 tablet 05/04/17 05/10/17 [Oxycodone-Acetaminophen 5-325] Promethazine [Phenergan] 25 - 50 mg PO Q6H PRN #10 tab 05/04/17 05/10/17 Dexamethasone [Decadron] 4 mg PO DAILY #5 tablet 05/10/17 Ondansetron Odt [Zofran] 4 mg TL Q6H PRN #15 tablet 05/10/17 Oxycodone HCl/Acetaminophen 1 each PO Q6H PRN #20 tablet 05/10/17 [Percocet 5-325 mg Tablet] - Allergies Allergies/Adverse Reactions: Allergies Allergy/AdvReac Type Severity Reaction Status Date / Time No Known Drug Allergies Allergy Verified 05/10/17 16:34 - Social History Does the pt smoke?: Yes Smoking Status: Current every day smoker Does the pt drink ETOH?: No Does the pt have substance abuse?: No - Immunizations Immunizations are current?: Yes - POLST Patient has POLST: No POLST Status: Full Code PD ED PE NORMAL - Vitals Vital signs reviewed: Yes - General General: Alert and oriented X 3, Well developed/nourished, Other (seems very uncomfortable. ) - HEENT HEENT: Atraumatic, PERRL, EOMI, Pharynx benign - Neck Neck: Supple, no meningeal sign, No adenopathy - Cardiac Cardiac: RRR, No murmur - Respiratory Respiratory: Clear bilaterally - Abdomen Abdomen: Soft, Non tender - Back Back: No spinal TTP, Other (no redness nor swelling at the LP site. ) - Derm Derm: Normal color, Warm and dry - Extremities Extremities: No tenderness to palpate, Normal ROM s pain - Neuro Neuro: Alert and oriented X 3, manager academic 2-12 intact, No motor deficit, No sensory deficit, Normal speech Results - Vitals Vitals: Oxygen O2 Source Room air - Labs Labs: Laboratory Tests 05/10/17 05/10/17 05/10/17 17:06 17:06 17:06 WBC 7.3 RBC 4.92 Hgb 11.4 L Hct 35.5 L MCV 72.3 L MCH 23.1 L MCHC 32.0 RDW 19.3 H Plt Count 279 MPV 8.8 Neut # 4.7 Lymph # 1.9 Atkinson # 0.5 Eos # 0.2 Baso # 0.1 Absolute Nucleated RBC 0.00 Nucleated RBC % 0.0 ESR 9 Sodium 137 Potassium 3.9 Chloride 106 Carbon Dioxide 20 L Anion Gap 11.0 BUN 21 H Creatinine 0.6 Estimated GFR (MDRD) 119 Glucose 113 H Calcium 9.5 Total Bilirubin 0.3 AST 18 ALT 23 Alkaline Phosphatase 44 Total Protein 7.5 Albumin 4.4 Globulin 3.1 Albumin/Globulin Ratio 1.4 Lipase 24 PD MEDICAL DECISION MAKING - ED course Complexity details: re-evaluated patient (feeling better with IV fluids and meds. Had Anesth talk with her about blood patching, but neither of them were very excited about it. Will see if steroids and meds continue to help into tomorrow. Return if worse again for blood patching. ), considered differential ( the character of the headache is now that of post-procedure headache. Give IV fluids, meds, steroids. Consult Anesth if not improving. ), d/w patient Departure - Departure Disposition: 01 Home, Self Care Clinical Impression: Headache Qualifiers: Headache type: unspecified Headache chronicity pattern: acute headache Intractability: intractable Qualified Code(s): R51 - Headache Post-procedural headache Qualifiers: Encounter type: initial encounter Qualified Code(s): T81.89XA - Other complications of procedures, not elsewhere classified, initial encounter Condition: Stable Record reviewed to determine appropriate education?: Yes Instructions: ED Cephalgia Unspecified Follow-Up: Dina Lisa MD [Primary Care Provider] - Prescriptions: Dexamethasone [Decadron] 4 mg PO DAILY #5 tablet Ondansetron Odt [Zofran] 4 mg TL Q6H PRN #15 tablet PRN Reason: Nausea / Vomiting Oxycodone HCl/Acetaminophen [Percocet 5-325 mg Tablet] 1 each PO Q6H PRN #20 tablet PRN Reason: Pain Comments: Drink lots of fluids. Decadron daily for 5 more days. Use Tylenol or Percocet if needed for pain. Recheck if not improved over the next day or 2. Return sooner if worsening. Discharge Date/Time: 05/10/17 20:11
[2017-05-10] MEDS ORDERED: DEXAMETHASONE 10 MG/ML VIAL PO STA (16:56)
[2017-05-10] MEDS ORDERED: METOCLOPRAMIDE 10 MG/2 ML VIAL IVP STA (16:56)
[2017-05-10] MEDS ORDERED: diphenhydrAMINE INJ 50 MG/ML VIAL IVP STA (16:56)
[2017-05-10] MEDS ORDERED: SODIUM CHLORIDE 0.9% 1,000 ML IV ONE (16:56)
[2017-05-10] MEDS ORDERED: HYDROmorphone 1 MG/ML CARPUJECT IVP STA ×3 (16:58→19:28)
[2017-05-10 17:13] LABS: BASOPHILS # (AUTO) 0.1 10^3/uL (0.0-0.1); BASOPHILS % (AUTO) 1.2 %; EOSINOPHILS # (AUTO) 0.2 10^3/uL (0.0-0.7); EOSINOPHILS % (AUTO) 2.3 %; HCT - HEMATOCRIT 35.5 % (37.0-47.0); HGB - HEMOGLOBIN 11.4 g/dL (12.0-16.0); LYMPHOCYTES # (AUTO) 1.9 10^3/uL (1.5-3.5); LYMPHOCYTES % (AUTO) 25.9 %; MEAN CORPUSCULAR HEMOGLOBIN 23.1 pg (27.0-31.0); MEAN CORPUSCULAR VOLUME 72.3 fL (81.0-99.0); MEAN PLATELET VOLUME 8.8 fL (7.9-10.8); MONOCYTES # (AUTO) 0.5 10^3/uL (0.0-1.0); MONOCYTES % (AUTO) 6.8 %; NEUTROPHILS # (AUTO) 4.7 10^3/uL (1.5-6.6); NEUTROPHILS % (AUTO) 63.8 %; RED BLOOD COUNT 4.92 10^6/uL (4.20-5.40); RED CELL DISTRIBUTION WIDTH 19.3 % (12.0-15.0); UNCORRECTED WHITE BLOOD COUNT 7.3 x10^3/uL; WHITE BLOOD COUNT 7.3 x10^3/uL (4.8-10.8)
[2017-05-10 17:25] LABS: ALBUMIN/GLOBULIN RATIO 1.4 (1.0-2.2); BILIRUBIN,TOTAL 0.3 mg/dL (0.2-1.0); CALCIUM 9.5 mg/dL (8.5-10.3); CREATININE 0.6 mg/dL (0.4-1.0); POTASSIUM 3.9 mmol/L (3.5-5.0); TOTAL PROTEIN 7.5 g/dL (6.7-8.2)
[2017-05-10] MEDS ORDERED: DEXAMETHASONE 10 MG/ML VIAL ONE (17:27)
[2017-05-10] MEDS ORDERED: HYDROmorphone 1 MG/ML CARPUJECT ONE ×3 (17:27→19:34)
[2017-05-10] MEDS ORDERED: METOCLOPRAMIDE 10 MG/2 ML VIAL ONE (17:27)
[2017-05-10] MEDS ORDERED: diphenhydrAMINE INJ 50 MG/ML VIAL ONE (17:28)
[2017-05-10] MEDS ORDERED: SODIUM CHLORIDE FLUSH 0.9% 10 ML SYRINGE IVP ONE ×2 (17:33→18:35)
[2017-05-10 19:36] VITALS: BP 146/85
== END 2017-05-10 20:11 | disposition home or self-care (01) ==
LOC: ED 15:02
DX: R51 Headache (principal); T81.89XA Other complications of procedures, not elsewhere classified, initial encounter; F17.200 Nicotine dependence, unspecified, uncomplicated
CPT/HCPCS: 36415; 80053; 83690; 85025; 85651; 96374; 96375; 96376; 99283; 99284; J1170

== ENCOUNTER 2017-07-08 19:10 | Emergency (ER) | payer MEDICAID ==
--- NOTE | 2017-07-08 21:37 | XRAY Preliminary Report ---
Exam: XR RIBS W/PA CHEST RT IMPRESSION: Negative chest and rib radiography. [facility] SITE ID: [id number]
--- NOTE | 2017-07-08 21:40 | XRAY Report ---
EXAM: RIGHT RIB RADIOGRAPHY EXAM DATE: 07/08/2017 09:15 PM. CLINICAL HISTORY: Fall, rib trauma. COMPARISON: None. TECHNIQUE: 1 view of the chest and 2 views of the ribs. FINDINGS: Bones: Normal. No fracture or bone lesion. Lungs: No focal opacities. No pneumothorax. No pleural effusions. Mediastinum: Heart and mediastinal contours are unremarkable. Other: None. IMPRESSION: Negative chest and rib radiography. [facility] Referring Provider Line: [phone] SITE ID: [id number]
[2017-07-08] MEDS ORDERED: IBUPROFEN 600 MG TABLET PO STA (21:44)
--- NOTE | 2017-07-08 21:46 | ED Physician Documentation ---
PD HPI TRUNK INJURY - Stated complaint Stated Complaint: SIDE INJURY - Chief complaint Chief Complaint: General - History obtained from History obtained from: Patient - History of Present Illness Location: Right chest Type of injury: Blunt / blow Timing - onset: Today Timing - details: Abrupt onset Quality: Pain Associated symtptoms: Swelling, Discoloration Contributing factors: No: Anticoagulated Where injury occured: Home Similar symptoms before: Has not had sx before Recently seen: Not recently seen - Additional information Additional information: Patient is a 26 year old female with no significant past medical history who is presenting to the emergency department for rib pain. Patient states that she was walking down her stairs when she slipped and hit her posterior ribs on the railing. Patient denies any shortness of breath, or head trauma. Review of Systems Constitutional: denies: Fever, Chills Eyes: denies: Decreased vision, Photophobia Ears: denies: Ear pain, Drainage/discharge Nose: denies: Epistaxis Throat: denies: Dental pain / toothache Cardiac: reports: Chest pain / pressure Respiratory: denies: Dyspnea, Cough, Wheezing GI: denies: Nausea, Vomiting : denies: Hematuria Skin: reports: Rash. denies: Abrasion (s), Laceration (s) Musculoskeletal: reports: Other (chest wall pain) Neurologic: denies: Generalized weakness, Focal weakness, Numbness, Headache, Head injury, LOC Immunocompromised: denies: Immunocompromised PD PAST MEDICAL HISTORY - Past Medical History Cardiovascular: Hypertension Respiratory: Asthma Neuro: Headache/migraine Endocrine/Autoimmune: None GI: C.difficile CONTRACT NEGOTIATOR: Other : None HEENT: Other Psych: Depression, Anxiety Musculoskeletal: Fibromyalgia Derm: None - Past Surgical History Past Surgical History: Yes /CONTRACT NEGOTIATOR: section, Tubal ligation - Present Medications Home Medications: Ambulatory Orders Medication Instructions Recorded Confirmed Enalapril [Vasotec] 10 mg PO DAILY 05/06/16 07/08/17 Labetalol [Trandate] 200 mg PO BID 05/06/16 07/08/17 Sertraline HCl [Zoloft] 100 mg PO DAILY 05/06/16 07/08/17 cloNIDine 0.1 MG PATCH 1 patch TOP TITR 06/18/16 07/08/17 [[id number]] Progesterone,Micronized 10 mg PO DAILY 08/01/16 07/08/17 [Progesterone] Multivitamin [Theragran] 1 tab PO DAILYWM #30 tablet 05/04/17 07/08/17 traZODone [Desyrel] 50 mg PO ACHS 07/08/17 07/08/17 - Allergies Allergies/Adverse Reactions: Allergies Allergy/AdvReac Type Severity Reaction Status Date / Time No Known Drug Allergies Allergy Verified 07/08/17 19:30 - Social History Does the pt smoke?: Yes Smoking Status: Current every day smoker Does the pt drink ETOH?: No Does the pt have substance abuse?: Yes Substance Use and Type: Marijuana - Immunizations Immunizations are current?: Yes - POLST Patient has POLST: No POLST Status: Full Code PD ED PE NORMAL - Vitals Vital signs reviewed: Yes - General General: Alert and oriented X 3, No acute distress, Well developed/nourished - HEENT HEENT: Atraumatic, Moist mucous membranes, Dentition benign - Neck Neck: Supple, no meningeal sign, No bony TTP - Cardiac Cardiac: RRR, No murmur - Respiratory Respiratory: No respiratory distress, Clear bilaterally - Abdomen Abdomen: Soft, Non tender, Non distended - Derm Derm: Warm and dry - Extremities Extremities: No deformity, No tenderness to palpate - Neuro Neuro: Alert and oriented X 3, No motor deficit, No sensory deficit, Normal speech Eye Opening: Spontaneous Motor: Obeys Commands Verbal: Oriented GCS Score: 15 - Psych Psych: Normal mood PD ED PE EXPANDED - Cardiac Cardiac: Chest wall TTP (tenderness and bruising of right posterior chest wall) - Derm Derm: Bruising (bruising of right posterior ribs) Results - Vitals Vitals: Vital Signs - 24 hr 07/08/17 07/08/17 19:25 21:59 Temperature 36.7 C Heart Rate 113 H 87 Respiratory 16 16 Rate Blood Pressure 153/100 H 142/107 H O2 Saturation 100 100 Oxygen O2 Source Room air - Rads (name of study) ribs/chest Radiology: Final report received (no acute fracture or dislocation or other abnormality) PD MEDICAL DECISION MAKING - ED course Complexity details: reviewed old records, reviewed results, re-evaluated patient , considered differential, d/w patient ED course: Patient was seen and examined at bedside. Imaging was ordered. when patient returned from imaging the results were reviewed. there was no acute traumatic abnormality. patient was treated with ibuprofen for pain. patient required no further work up and was stable for discharge with outpatient follow up. Departure - Departure Disposition: 01 Home, Self Care Clinical Impression: Contusion of rib on right side Condition: Good Instructions: ED Contusion Rib Follow-Up: Dina Lisa MD [Primary Care Provider] - As Needed Comments: Your diagnostics today are within normal limits. there is no acute fracture or dislocation. You will likely be more sore tomorrow and the next day. You can take motrin or tylenol as needed for pain. You can put ice on your wounds as needed. You should make sure you take deep breaths. You can return to the emergency department at any time for new, worsening or uncontrollable symptoms.
[2017-07-08] MEDS ORDERED: IBUPROFEN 600 MG TABLET PO ONE (22:00)
[2017-07-08 22:01] VITALS: BP 142/107
== END 2017-07-08 22:02 | disposition home or self-care (01) ==
LOC: ED 19:10
DX: S20.211A Contusion of right front wall of thorax, initial encounter (principal); W10.9XXA Fall (on) (from) unspecified stairs and steps, initial encounter; I10 Essential (primary) hypertension; F17.200 Nicotine dependence, unspecified, uncomplicated
CPT/HCPCS: 71101; 99283; A9270

== ENCOUNTER 2017-08-15 13:09 | Emergency (ER) | payer MEDICAID ==
[2017-08-15 13:28] VITALS: BP 146/115
--- NOTE | 2017-08-15 13:45 | ED Physician Documentation ---
History of Present Illness - Stated complaint Stated Complaint: COUGH/CONGESTION - Chief complaint Chief Complaint: General - History obtained from History obtained from: Patient - History of Present Illness Timing: Other (Sick for months with bilateral sinus pain and upper teeth pain worse if she leans forward associated with productive cough and fevers at the outset now better.) Review of Systems Constitutional: reports: Fatigue Ears: denies: Ear pain Nose: reports: Rhinorrhea / runny nose, Congestion, Sinus pressure / pain Respiratory: reports: Dyspnea, Cough GI: denies: Abdominal Pain PD PAST MEDICAL HISTORY - Past Medical History Cardiovascular: Hypertension Respiratory: Asthma Neuro: Headache/migraine Endocrine/Autoimmune: None GI: C.difficile 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 : None HEENT: Other Psych: Depression, Anxiety Musculoskeletal: Fibromyalgia Derm: None - Past Surgical History Past Surgical History: Yes /UNIT COORDINATOR: section, Tubal ligation - Present Medications Home Medications: Ambulatory Orders Medication Instructions Recorded Confirmed Enalapril [Vasotec] 10 mg PO DAILY 05/06/16 08/15/17 Labetalol [Trandate] 200 mg PO BID 05/06/16 08/15/17 Sertraline HCl [Zoloft] 100 mg PO DAILY 05/06/16 08/15/17 cloNIDine 0.1 MG PATCH 1 patch TOP TITR 06/18/16 08/15/17 [[id number]] Multivitamin [Theragran] 1 tab PO DAILYWM #30 tablet 05/04/17 08/15/17 traZODone [Desyrel] 50 mg PO ACHS 07/08/17 08/15/17 Albuterol Sulfate [Proventil Hfa 1 - 2 puffs IH Q4H PRN #1 08/15/17 Inhaler] hfa.aer.ad Amox/Clav 875/125 [Augmentin] 1 each PO Q12H #20 tablet 08/15/17 Guaifenesin/Pseudoephedrne HCl 1 each PO BID PRN #20 tab.er.12h 08/15/17 [Mucinex D ER 600-60 mg Tablet] guaiFENesin/CODEINE [Robitussin AC] 5 - 10 ml PO Q6H PRN #120 ml 08/15/17 predniSONE [Deltasone] 60 mg PO DAILY 5 Days tablet 08/15/17 - Allergies Allergies/Adverse Reactions: Allergies Allergy/AdvReac Type Severity Reaction Status Date / Time No Known Drug Allergies Allergy Verified 07/08/17 19:30 - Social History Does the pt smoke?: Yes Smoking Status: Current every day smoker Does the pt drink ETOH?: No Does the pt have substance abuse?: Yes - Immunizations Immunizations are current?: Yes - POLST Patient has POLST: No POLST Status: Full Code PD ED PE NORMAL - Vitals Vital signs reviewed: Yes - General General: Alert and oriented X 3, No acute distress - HEENT HEENT: PERRL, EOMI, Other (Bilateral maxillary sinus tenderness, normal oropharynx) - Neck Neck: Supple, no meningeal sign, No bony TTP - Cardiac Cardiac: RRR, No murmur - Respiratory Respiratory: No respiratory distress, Other (Diffuse wheezes, good air motion, no focal findings) - Abdomen Abdomen: Non tender - Derm Derm: No rash - Neuro Neuro: Alert and oriented X 3 - Psych Psych: Normal mood, Normal affect Results - Vitals Vitals: Vital Signs - 24 hr 08/15/17 13:26 Temperature 36.7 C Heart Rate 95 Respiratory 17 Rate Blood Pressure 146/115 H O2 Saturation 100 Oxygen O2 Source Room air Departure - Departure Disposition: Home, Self Care Clinical Impression: Sinusitis Qualifiers: Sinusitis location: maxillary Chronicity: acute Recurrence: not specified as recurrent Qualified Code(s): J01.00 - Acute maxillary sinusitis, unspecified Condition: Good Record reviewed to determine appropriate education?: Yes Instructions: ED Sinusitis Abx Tx Prescriptions: Albuterol Sulfate [Proventil Hfa Inhaler] 1 - 2 puffs IH Q4H PRN #1 hfa.aer.ad PRN Reason: Cough Amox/Clav 875/125 [Augmentin] 1 each PO Q12H #20 tablet guaiFENesin/CODEINE [Robitussin AC] 5 - 10 ml PO Q6H PRN #120 ml PRN Reason: Cough Guaifenesin/Pseudoephedrne HCl [Mucinex D ER 600-60 mg Tablet] 1 each PO BID PRN #20 tab.er.12h PRN Reason: congestion predniSONE [Deltasone] 60 mg PO DAILY 5 Days tablet Comments: Call your doctor to arrange a follow-up appointment, make the next available appointment. In the interim, return anytime if worse or if new symptoms develop. Your blood pressure was elevated today on check into the emergency department. This does not mean that you have hypertension, it is a common phenomenon to come to the emergency department and have elevated blood pressure. I recommend that you see your primary care physician within the week to have it rechecked when you are feeling better.
== END 2017-08-15 14:42 | disposition home or self-care (01) ==
LOC: ED 13:09
DX: J01.00 Acute maxillary sinusitis, unspecified (principal); I10 Essential (primary) hypertension; J45.909 Unspecified asthma, uncomplicated; M79.7 Fibromyalgia; F17.200 Nicotine dependence, unspecified, uncomplicated
CPT/HCPCS: 99283

== ENCOUNTER 2017-08-19 12:32 | Emergency (ER) | payer MEDICAID ==
--- NOTE | 2017-08-19 13:48 | ED Physician Documentation ---
PD HPI NVD - Stated complaint Stated Complaint: DIARRHEA/BLOOD IN STOOL - Chief complaint Chief Complaint: General - History obtained from History obtained from: Patient - History of Present Illness Timing - onset: How many days ago Timing - duration: Days (2) Timing - details: Abrupt onset Associated symptoms: Abdominal pain (cramping diffuse). No: Fever, Melena, Hematochezia Contributing factors: Recent antibiotics (started augmentin 3 days ago for sinusitis.) Improved by: No: Vomiting Worsened by: Eating, Position Similar symptoms before: Diagnosis (c.diff last year that was hard to treat and took several courses of meds (vanco) to finally get away.) Recently seen: Not recently seen Review of Systems Constitutional: denies: Fever, Chills Nose: denies: Rhinorrhea / runny nose, Congestion Throat: denies: Sore throat Cardiac: denies: Chest pain / pressure Respiratory: denies: Cough GI: reports: Abdominal Pain, Nausea, Vomiting, Diarrhea : denies: Dysuria, Frequency Skin: denies: Rash, Lesions PD PAST MEDICAL HISTORY - Past Medical History Cardiovascular: Hypertension Respiratory: Asthma Neuro: Headache/migraine Endocrine/Autoimmune: None GI: C.difficile 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 HEENT: Other Psych: Depression, Anxiety Musculoskeletal: Fibromyalgia Derm: None - Past Surgical History Past Surgical History: Yes /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: section, Tubal ligation - Present Medications Home Medications: Ambulatory Orders Medication Instructions Recorded Confirmed Enalapril [Vasotec] 10 mg PO DAILY 05/06/16 08/15/17 Labetalol [Trandate] 200 mg PO BID 05/06/16 08/15/17 Sertraline HCl [Zoloft] 100 mg PO DAILY 05/06/16 08/15/17 cloNIDine 0.1 MG PATCH 1 patch TOP TITR 06/18/16 08/15/17 [[id number]] Multivitamin [Theragran] 1 tab PO DAILYWM #30 tablet 05/04/17 08/15/17 traZODone [Desyrel] 50 mg PO ACHS 07/08/17 08/15/17 Albuterol Sulfate [Proventil Hfa 1 - 2 puffs IH Q4H PRN #1 08/15/17 Inhaler] hfa.aer.ad Amox/Clav 875/125 [Augmentin] 1 each PO Q12H #20 tablet 08/15/17 Guaifenesin/Pseudoephedrne HCl 1 each PO BID PRN #20 tab.er.12h 08/15/17 [Mucinex D ER 600-60 mg Tablet] guaiFENesin/CODEINE [Robitussin AC] 5 - 10 ml PO Q6H PRN #120 ml 08/15/17 predniSONE [Deltasone] 60 mg PO DAILY 5 Days tablet 08/15/17 Diphenoxylate HCl/Atropine 1 each PO Q6H PRN #12 tablet 08/19/17 [Diphenoxylate-Atrop 2.5-0.025] Metronidazole [Flagyl] 500 mg PO BID #14 tablet 08/19/17 Ondansetron Odt [Zofran] 4 mg TL Q6H PRN #15 tablet 08/19/17 Oxycodone HCl/Acetaminophen 1 each PO Q6H PRN #15 tablet 08/19/17 [Percocet 5-325 mg Tablet] - Allergies Allergies/Adverse Reactions: Allergies Allergy/AdvReac Type Severity Reaction Status Date / Time No Known Drug Allergies Allergy Verified 08/19/17 12:48 - Social History Does the pt smoke?: Yes Smoking Status: Current every day smoker Does the pt drink ETOH?: No Does the pt have substance abuse?: Yes - Immunizations Immunizations are current?: Yes - POLST Patient has POLST: No POLST Status: Full Code PD ED PE NORMAL - Vitals Vital signs reviewed: Yes - General General: Alert and oriented X 3, Well developed/nourished, Other (appears uncomfortable, crying and holding abdomen.) - HEENT HEENT: Pharynx benign - Neck Neck: Supple, no meningeal sign, No adenopathy - Cardiac Cardiac: RRR, No murmur - Respiratory Respiratory: Clear bilaterally - Abdomen Abdomen: Normal bowel sounds, Soft, Non distended, No organomegaly, Other ( generally tender, most to the left side, without focal guarding. No percussion tenderness. ) - Back Back: No CVA TTP - Derm Derm: Normal color, Warm and dry - Neuro Neuro: Alert and oriented X 3, No motor deficit, Normal speech Results - Vitals Vitals: Oxygen O2 Source Room air - Labs Labs: Microbiology 08/19/17 13:50 Clostridium difficile (PCR) - Final Stool Laboratory Tests 08/19/17 08/19/17 08/19/17 13:27 13:27 13:50 WBC 9.0 RBC 4.64 Hgb 10.7 L Hct 33.5 L MCV 72.1 L MCH 23.1 L MCHC 32.1 RDW 17.8 H Plt Count 287 MPV 8.8 Neut # 6.3 Lymph # 2.0 Placer # 0.5 Eos # 0.1 Baso # 0.1 Absolute Nucleated RBC 0.00 Nucleated RBC % 0.0 Sodium 136 Potassium 4.0 Chloride 101 Carbon Dioxide 24 Anion Gap 11.0 BUN 18 Creatinine 0.7 Estimated GFR (MDRD) 100 Glucose 97 Calcium 9.1 Total Bilirubin 0.5 AST 18 ALT 16 Alkaline Phosphatase 38 L Total Protein 7.5 Albumin 4.3 Globulin 3.2 Albumin/Globulin Ratio 1.3 Lipase 14 L Urine Color YELLOW Urine Clarity CLEAR Urine pH 7.0 Ur Specific [place] 1.020 Urine Protein NEGATIVE Urine Glucose (UA) NEGATIVE Urine Ketones NEGATIVE Urine Occult Blood NEGATIVE Urine Nitrite NEGATIVE Urine Bilirubin NEGATIVE Urine Urobilinogen 0.2 (NORMAL) Ur Leukocyte Esterase NEGATIVE Ur Microscopic Review NOT INDICATED Urine Culture Comments NOT INDICATED Urine HCG, Qual NEGATIVE PD MEDICAL DECISION MAKING - ED course Complexity details: reviewed results, re-evaluated patient (still having pains after IM meds, so IV started and repeated doses of meds for nausea and pain/ cramps. She felt improved. Had prolonged ED course to ensure symptoms stayed okay and for her to give stool. Then lab took couple of hours to result the C.Diff test, and really wanted to get answer for her before discharge. Presume not c. diff right now, though could be false negative test. If persistent diarrhea despite stopping augmentin and taking probiotics, then consider empiric flagyl. If persistent sinus symptoms, then consider treating sinuses with flagyl (not unreasonable coverage) to prevent c.diff from it. ), considered differential, d/w patient Departure - Departure Disposition: 01 Home, Self Care Clinical Impression: Antibiotic-associated diarrhea Abdominal pain Qualifiers: Abdominal location: generalized Qualified Code(s): R10.84 - Generalized abdominal pain Condition: Stable Record reviewed to determine appropriate education?: Yes Follow-Up: Dina Lisa MD [Primary Care Provider] - Prescriptions: Diphenoxylate HCl/Atropine [Diphenoxylate-Atrop 2.5-0.025] 1 each PO Q6H PRN # 12 tablet PRN Reason: Diarrhea Metronidazole [Flagyl] 500 mg PO BID #14 tablet Ondansetron Odt [Zofran] 4 mg TL Q6H PRN #15 tablet PRN Reason: Nausea / Vomiting Oxycodone HCl/Acetaminophen [Percocet 5-325 mg Tablet] 1 each PO Q6H PRN #15 tablet PRN Reason: Pain Comments: Stop the Augmentin antibiotic. Drink lots of fluids. Use probiotic supplement as you have been doing 2-3 times a day. Use ondansetron if needed for nausea. Percocet if needed for stomach pains and cramps. Lomotil if needed for diarrhea. See if the symptoms improve over the next couple of days. If not then recheck with your primary care or back here in the ER. If the stomach pains and diarrhea improved but the sinuses do not keep improving, and we could try treating the sinus infection with metronidazole. This is not common antibiotic for sinuses but should actually provide coverage reasonably for a bacterial sinus infection. And it would not induce C. difficile since is actually used to treat it. However if your sinuses do improve then I would suggest no further antibiotics. Discharge Date/Time: 08/19/17 18:21
[2017-08-19 13:56] LABS: BASOPHILS # (AUTO) 0.1 10^3/uL (0.0-0.1); BASOPHILS % (AUTO) 0.9 %; EOSINOPHILS # (AUTO) 0.1 10^3/uL (0.0-0.7); EOSINOPHILS % (AUTO) 1.2 %; HGB - HEMOGLOBIN 10.7 g/dL (12.0-16.0); LYMPHOCYTES % (AUTO) 22.1 %; MEAN CORPUSCULAR HEMOGLOBIN 23.1 pg (27.0-31.0); MEAN CORPUSCULAR HGB CONC 32.1 g/dL (32.0-36.0); MEAN CORPUSCULAR VOLUME 72.1 fL (81.0-99.0); MEAN PLATELET VOLUME 8.8 fL (7.9-10.8); MONOCYTES # (AUTO) 0.5 10^3/uL (0.0-1.0); MONOCYTES % (AUTO) 5.8 %; NEUTROPHILS # (AUTO) 6.3 10^3/uL (1.5-6.6); PLT - PLATELET COUNT 287 10^3/uL (130-450); RED BLOOD COUNT 4.64 10^6/uL (4.20-5.40); RED CELL DISTRIBUTION WIDTH 17.8 % (12.0-15.0)
[2017-08-19 14:06] LABS: BILIRUBIN,URINE NEGATIVE (NEGATIVE); GLUCOSE, URINE (UA) NEGATIVE (NEGATIVE); KETONES,URINE (UA) NEGATIVE (NEGATIVE); LEUKOCYTE ESTERASE, URINE NEGATIVE (NEGATIVE); NITRITE,URINE NEGATIVE (NEGATIVE); OCCULT BLOOD,URINE NEGATIVE (NEGATIVE); PROTEIN,URINE NEGATIVE (NEGATIVE); UROBILINOGEN,URINE 0.2 (NORMAL) E.U./dL (NORMAL)
[2017-08-19 14:09] LABS: CLARITY,URINE CLEAR (CLEAR); HCG UR QUAL NEGATIVE
[2017-08-19] MEDS ORDERED: ONDANSETRON ODT 4 MG TABLET TL STA (14:11)
[2017-08-19] MEDS ORDERED: HYDROmorphone 1 MG/ML SYRINGE IM STA (14:11)
[2017-08-19] MEDS ORDERED: PROMETHAZINE 25 MG/1 ML VIAL IM STA (14:11)
[2017-08-19] MEDS ORDERED: KETOROLAC 60 MG/2 ML VIAL IM STA (14:12)
[2017-08-19] MEDS ORDERED: DIPHENOX/ATROPINE 2.5/0.025 MG TABLET PO STA (14:12)
[2017-08-19 14:32] LABS: ALBUMIN 4.3 g/dL (3.2-5.5); ALBUMIN/GLOBULIN RATIO 1.3 (1.0-2.2); BILIRUBIN,TOTAL 0.5 mg/dL (0.2-1.0); CALCIUM 9.1 mg/dL (8.5-10.3); CREATININE 0.7 mg/dL (0.4-1.0); TOTAL PROTEIN 7.5 g/dL (6.7-8.2)
[2017-08-19] MEDS ORDERED: HYDROmorphone 1 MG/ML SYRINGE IVP STA (15:56)
[2017-08-19] MEDS ORDERED: SODIUM CHLORIDE 0.9% 1,000 ML IV ONE (15:56)
[2017-08-19] MEDS ORDERED: METOCLOPRAMIDE 10 MG/2 ML VIAL IVP STA (15:57)
[2017-08-19 18:19] VITALS: BP 155/96
== END 2017-08-19 18:21 | disposition home or self-care (01) ==
LOC: ED 12:32
DX: K52.1 Toxic gastroenteritis and colitis (principal); T36.0X5A Adverse effect of penicillins, initial encounter; I10 Essential (primary) hypertension; F17.200 Nicotine dependence, unspecified, uncomplicated; Z86.19 Personal history of other infectious and parasitic diseases
CPT/HCPCS: 36415; 80053; 81003; 81025; 83690; 85025; 87493; 96361; 96372; 96374; 96375; 99283; 99284; A9270; J1170; Q0162; 81001; 87086

== ENCOUNTER 2017-09-14 00:44 | Emergency (ER) | payer MEDICAID ==
[2017-09-14 00:53] VITALS: BP 161/120
[2017-09-14] MEDS ORDERED: IBUPROFEN 600 MG TABLET PO STA (01:01)
[2017-09-14] MEDS ORDERED: ONDANSETRON ODT 4 MG TABLET TL STA (01:01)
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
== END 2017-09-14 01:36 | disposition home or self-care (01) ==
LOC: ED 00:44
DX: S00.83XA Contusion of other part of head, initial encounter (principal); Y04.2XXA Assault by strike against or bumped into by another person, initial encounter; I10 Essential (primary) hypertension; J45.909 Unspecified asthma, uncomplicated; M79.7 Fibromyalgia; F17.200 Nicotine dependence, unspecified, uncomplicated
CPT/HCPCS: 99283; A9270; Q0162

== ENCOUNTER 2018-09-21 17:10 | Emergency (ER) | payer MEDICAID ==
[2018-09-21] MEDS ORDERED: BUFFERED LIDOCAINE 10 ML SYRINGE ONE (17:53)
[2018-09-21] MEDS ORDERED: TRIAMCINOLONE 40 MG/ML VIAL IM STA (18:06)
[2018-09-21] MEDS ORDERED: BUPIVACAINE 0.5%-EPI 1:200000 PF 10 ML VIAL SUBQ STA (18:06)
--- NOTE | 2018-09-21 18:17 | ED Physician Documentation ---
History of Present Illness - Stated complaint Stated Complaint: HEADACHE/NECK PX - Chief complaint Chief Complaint: General - History obtained from History obtained from: Patient - History of Present Illness Timing: Other (For the last 3 days she has had severe occipital head pain and neck pain that is much worse if she rotates her head to the left. There is no associated fever or light sensitivity. She has a history of headaches but this is much different. 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 HEENT: Other Psych: Depression, Anxiety Musculoskeletal: Fibromyalgia Derm: None - Past Surgical History Past Surgical History: Yes /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: section, Tubal ligation - Present Medications Home Medications: Ambulatory Orders Medication Instructions Recorded Confirmed Enalapril [Vasotec] 10 mg PO DAILY 05/06/16 08/15/17 Labetalol [Trandate] 200 mg PO BID 05/06/16 08/15/17 Sertraline HCl [Zoloft] 100 mg PO DAILY 05/06/16 08/15/17 cloNIDine 0.1 MG PATCH 1 patch TOP TITR 06/18/16 08/15/17 [[id number]] Multivitamin [Theragran] 1 tab PO DAILYWM #30 tablet 05/04/17 08/15/17 traZODone [Desyrel] 50 mg PO ACHS 07/08/17 08/15/17 Albuterol Sulfate [Proventil Hfa 1 - 2 puffs IH Q4H PRN #1 08/15/17 Inhaler] hfa.aer.ad Amox/Clav 875/125 [Augmentin] 1 each PO Q12H #20 tablet 08/15/17 Guaifenesin/Pseudoephedrne HCl 1 each PO BID PRN #20 tab.er.12h 08/15/17 [Mucinex D ER 600-60 mg Tablet] guaiFENesin/CODEINE [Robitussin AC] 5 - 10 ml PO Q6H PRN #120 ml 08/15/17 predniSONE [Deltasone] 60 mg PO DAILY 5 Days tablet 08/15/17 Diphenoxylate HCl/Atropine 1 each PO Q6H PRN #12 tablet 08/19/17 [Diphenoxylate-Atrop 2.5-0.025] Metronidazole [Flagyl] 500 mg PO BID #14 tablet 08/19/17 Ondansetron Odt [Zofran] 4 mg TL Q6H PRN #15 tablet 08/19/17 Oxycodone HCl/Acetaminophen 1 each PO Q6H PRN #15 tablet 08/19/17 [Percocet 5-325 mg Tablet] Ciproflox/Dexameth Otic Drops 4 drops OT BID #1 bottle 09/14/17 [Ciprodex] Ondansetron Odt [Zofran] 4 mg TL Q6H PRN #14 tablet 09/14/17 Oxycodone HCl/Acetaminophen 1 - 2 each PO Q6H PRN #7 tablet 09/21/18 [Percocet 5-325 mg Tablet] - Allergies Allergies/Adverse Reactions: Allergies Allergy/AdvReac Type Severity Reaction Status Date / Time No Known Drug Allergies Allergy Verified 09/21/18 17:31 - Social History Does the pt smoke?: Yes Smoking Status: Current every day smoker Does the pt drink ETOH?: No Does the pt have substance abuse?: Yes - Immunizations Immunizations are current?: Yes - POLST Patient has POLST: No POLST Status: Full Code PD ED PE NORMAL - Vitals Vital signs reviewed: Yes - General General: Alert and oriented X 3, Other (uncomfortable) - HEENT HEENT: PERRL, EOMI - Neck Neck: Other (TTP Left SCM and Left occipital area) - Respiratory Respiratory: No respiratory distress, Clear bilaterally - Abdomen Abdomen: Non tender - Psych Psych: Normal mood, Normal affect Results - Vitals Vitals: Vital Signs - 24 hr 09/21/18 17:28 Temperature 36.8 C Heart Rate 95 Respiratory 18 Rate Blood Pressure 161/86 H O2 Saturation 99 Oxygen O2 Source Room air - Labs Labs: Laboratory Tests 09/21/18 09/21/18 09/21/18 19:05 19:05 19:05 WBC 5.2 RBC 4.73 Hgb 11.4 L Hct 36.6 L MCV 77.4 L MCH 24.1 L MCHC 31.1 L RDW 16.8 H Plt Count 282 MPV 8.7 Neut # (Auto) 3.0 Lymph # (Auto) 1.3 L [place] # (Auto) 0.4 Eos # (Auto) 0.5 Baso # (Auto) 0.1 Absolute Nucleated RBC 0.00 Nucleated RBC % 0.1 ESR 5 Sodium 138 Potassium 3.5 Chloride 102 Carbon Dioxide 26 Anion Gap 10.0 BUN 14 Creatinine 0.6 Estimated GFR (MDRD) 118 Glucose 93 Calcium 8.5 Procedures - General procedure General procedure: Occipital nerve block was done after alcohol prep using 3 mL's on either side of a total solution containing 40 mg of Kenalog and 5 mL of 0.5% Marcaine with epinephrine. PD MEDICAL DECISION MAKING - ED course ED course: 27-year-old woman presents with occipital headache and neck stiffness. The neck stiffness seems more consistent with muscular spasm than anything else and she is trialed a variety medications at home without relief. The pattern is mostly inconsistent with meningitis although that is on the differential. She has a history of spinal headache from previous lumbar puncture and would like to avoid that so we will risk stratify for infection with blood work. This was decided after occipital nerve block was ineffective. After the administration of divided doses of patient she is feeling much better. Her inflammatory markers would suggest strongly against an inflammatory or infectious cause of this. Departure - Departure Disposition: 01 Home, Self Care Clinical Impression: Neck muscle spasm Condition: Stable Record reviewed to determine appropriate education?: Yes Instructions: ED Spasm Neck No Injury Prescriptions: Oxycodone HCl/Acetaminophen [Percocet 5-325 mg Tablet] 1 - 2 each PO Q6H PRN #7 tablet PRN Reason: pain Comments: Call your doctor to arrange a follow-up appointment, make the next available appointment. In the interim, return anytime if worse or if new symptoms develop. Do not drink or drive while taking narcotic pain medication. Note that many narcotic pain relievers also contain Tylenol/acetaminophen. Please ensure that your total dose of acetaminophen from all sources does not exceed 3 g (3000 mg) per day. You may get constipated while on this medication. Take a stool softener such as Colace twice a day while you are on it. Also add an [id number] laxative such as senna or MiraLAX on any day that you do not have a bowel movement. If you received a narcotic pain medication or sedative while in the emergency department, do not drive for the next 24 hours. Your blood pressure was elevated today on check into the emergency department. This does not mean that you have hypertension, it is a common phenomenon to come to the emergency department and have elevated blood pressure. I recommend that you see your primary care physician within the week to have it rechecked when you are feeling better.
[2018-09-21] MEDS ORDERED: KETOROLAC 30 MG/ML VIAL IVP STA (18:49)
[2018-09-21] MEDS ORDERED: HYDROmorphone 1 MG/ML CARPUJECT IVP STA (18:49)
[2018-09-21] MEDS ORDERED: SODIUM CHLORIDE 0.9% 1,000 ML IV ONE (18:49)
[2018-09-21 19:16] LABS: BASOPHILS # (AUTO) 0.1 10^3/uL (0.0-0.1); BASOPHILS % (AUTO) 1.5 %; EOSINOPHILS # (AUTO) 0.5 10^3/uL (0.0-0.7); EOSINOPHILS % (AUTO) 9.4 %; HGB - HEMOGLOBIN 11.4 g/dL (12.0-16.0); LYMPHOCYTES # (AUTO) 1.3 10^3/uL (1.5-3.5); LYMPHOCYTES % (AUTO) 25.5 %; MEAN CORPUSCULAR HEMOGLOBIN 24.1 pg (27.0-31.0); MEAN CORPUSCULAR HGB CONC 31.1 g/dL (32.0-36.0); MEAN CORPUSCULAR VOLUME 77.4 fL (81.0-99.0); MEAN PLATELET VOLUME 8.7 fL (7.9-10.8); MONOCYTES # (AUTO) 0.4 10^3/uL (0.0-1.0); MONOCYTES % (AUTO) 6.8 %; NEUTROPHILS % (AUTO) 56.8 %; PLT - PLATELET COUNT 282 10^3/uL (130-450); RED BLOOD COUNT 4.73 10^6/uL (4.20-5.40); RED CELL DISTRIBUTION WIDTH 16.8 % (12.0-15.0); WHITE BLOOD COUNT 5.2 x10^3/uL (4.8-10.8)
[2018-09-21 19:22] LABS: CALCIUM 8.5 mg/dL (8.5-10.3); CREATININE 0.6 mg/dL (0.4-1.0)
[2018-09-21] MEDS ORDERED: LIDOCAINE PATCH 5% TOP STA (19:47)
[2018-09-21] MEDS ORDERED: HYDROmorphone 2 MG/ML VIAL IVP STA (19:47)
[2018-09-21] MEDS ORDERED: oxyCODONE/ACET 5/325 Prepack 4 PO STA (20:34)
[2018-09-21 20:49] VITALS: BP 156/78
== END 2018-09-21 20:51 | disposition home or self-care (01) ==
LOC: ED 17:10
DX: M62.838 Other muscle spasm (principal); I10 Essential (primary) hypertension; F17.200 Nicotine dependence, unspecified, uncomplicated
CPT/HCPCS: 36415; 64405; 80048; 85025; 85651; 86140; 96374; 96376; 99283; A9270; J1170

== ENCOUNTER 2018-09-23 08:36 | Emergency (ER) | payer MEDICAID ==
[2018-09-23] MEDS ORDERED: KETOROLAC 30 MG/ML VIAL IVP STA (09:22)
[2018-09-23] MEDS ORDERED: HYDROmorphone 2 MG/ML VIAL IVP STA (09:22)
[2018-09-23] MEDS ORDERED: BUPIVACAINE 0.5%-EPI 1:200000 PF 10 ML VIAL SUBQ STA (09:22)
[2018-09-23] MEDS ORDERED: TRIAMCINOLONE 40 MG/ML VIAL IM STA (09:22)
[2018-09-23] MEDS ORDERED: PROCHLORPERAZINE 10 MG/2 ML VIAL IVP STA (09:23)
--- NOTE | 2018-09-23 11:21 | ED Physician Documentation ---
PD HPI HEADACHE - Stated complaint Stated Complaint: NECK PX/DIZZY - Chief complaint Chief Complaint: General - History obtained from History obtained from: Patient - History of Present Illness Timing - onset: How many days ago (3-4) Timing - onset during: Light activity Timing - details: Gradual onset, Still present, Waxing and waning Worst headache ever?: No: Worst headache ever? Location: Back (pain upper neck/back of head, worse with ROM and feels muscle stiffness, so decreased ROM of the neck. Says she feels some crunching feeling with ROM of the neck. No noted trauma. No fevers. No neuro symptoms in arms/hands.) Quality: Tightness, Other (sharp pain with movement of neck, mostly to the left.) Associated symptoms: Stiff neck. No: Fever, Nausea, Vomiting, Weakness, Numbness, Vision changes Worsened by: No: Light, Noise Contributing factors: No: Recent illness, Trauma Similar symptoms before: Has not had sx before Recently seen: Emergency Dept (2 days ago and had injection at occipital nerve area which patient says did not help, but IV pain meds did.) Review of Systems Constitutional: denies: Fever Nose: denies: Rhinorrhea / runny nose, Congestion Throat: denies: Sore throat Respiratory: denies: Cough GI: denies: Nausea, Vomiting, Diarrhea Skin: denies: Rash, Lesions Neurologic: denies: Focal weakness, Numbness, Altered mental status PD PAST MEDICAL HISTORY - Past Medical History Cardiovascular: Hypertension Respiratory: Asthma Neuro: Migraines Endocrine/Autoimmune: None GI: C.difficile U.S. 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 COMMISSIONER: section, Tubal ligation - Present Medications Home Medications: Ambulatory Orders Medication Instructions Recorded Confirmed Enalapril [Vasotec] 10 mg PO DAILY 05/06/16 08/15/17 Sertraline HCl [Zoloft] 100 mg PO DAILY 05/06/16 08/15/17 cloNIDine 0.1 MG PATCH 1 patch TOP TITR 06/18/16 08/15/17 [Hnchdnqc-Uba-5] Multivitamin [Theragran] 1 tab PO DAILYWM #30 tablet 05/04/17 08/15/17 Oxycodone HCl/Acetaminophen 1 - 2 each PO Q6H PRN #7 tablet 09/21/18 [Percocet 5-325 mg Tablet] Metoprolol Tartrate 100 mg ORAL DAILY 09/23/18 09/23/18 Oxycodone HCl/Acetaminophen 1 - 2 each PO Q6H PRN #25 tablet 09/23/18 [Percocet 7.5-325 mg Tablet] - Allergies Allergies/Adverse Reactions: Allergies Allergy/AdvReac Type Severity Reaction Status Date / Time No Known Drug Allergies Allergy Verified 09/23/18 08:48 - Social History Does the pt smoke?: Yes Smoking Status: Current every day smoker Does the pt drink ETOH?: No Does the pt have substance abuse?: Yes - Immunizations Immunizations are current?: Yes - POLST Patient has POLST: No POLST Status: Full Code PD ED PE NORMAL - Vitals Vital signs reviewed: Yes - General General: Alert and oriented X 3, Well developed/nourished, Other (holding head and neck guardedly. ) - Neck Neck: No adenopathy, Other (neck posteriorly is tender at trapezius insertion areas both sides, left more. No rash nor sores. ) - Cardiac Cardiac: RRR, No murmur - Respiratory Respiratory: Clear bilaterally - Derm Derm: Normal color, Warm and dry, No rash - Neuro Neuro: Alert and oriented X 3, classification and treatment director 2-12 intact, No motor deficit, No sensory deficit, Normal speech Results - Vitals Vitals: Vital Signs - 24 hr 09/23/18 09/23/18 09/23/18 08:45 09:56 11:33 Temperature 36.8 C Heart Rate 98 66 Respiratory 18 15 Rate Blood Pressure 151/108 H 155/85 H 165/112 H O2 Saturation 100 97 Oxygen O2 Source Room air Procedures - General procedure General procedure: Trigger point injection at trapezius insertion area both sides without problems, using Marcaine and Kenalog, 27 G needle. With improvement in neck pain and more supple ROM after 10-15 minutes. PD MEDICAL DECISION MAKING - ED course Complexity details: considered differential (seems like muscular tension, with tenderness at trapezius insertion. Does not have some migraine type component. No fever and had normal WBC couple days ago. No focal deficits. Does not seem like infectious. ), d/w patient Departure - Departure Disposition: 01 Home, Self Care Clinical Impression: Neck pain, acute Condition: Stable Record reviewed to determine appropriate education?: Yes Instructions: ED Neck Pain No Trauma Follow-Up: ROXANNE REDMAN [Primary Care Provider] - Prescriptions: Oxycodone HCl/Acetaminophen [Percocet 7.5-325 mg Tablet] 1 - 2 each PO Q6H PRN #25 tablet PRN Reason: Pain Comments: Heat and gentle stretching for the neck. Use some anti-inflammatories such as ibuprofen or naproxen 2-3 tablets 3 times a day for the next 5 or 6 days. Add oxycodone if needed for pain. Use your Flexeril muscle relaxant as needed for stiffness. Off work for another day or 2. Recheck if not improved over the next few days. I presume this is a muscular type pain. Forms: Activity restrictions Discharge Date/Time: 09/23/18 11:33
[2018-09-23 11:35] VITALS: BP 165/112
== END 2018-09-23 11:33 | disposition home or self-care (01) ==
LOC: ED 08:36
DX: M54.2 Cervicalgia (principal); I10 Essential (primary) hypertension; F17.200 Nicotine dependence, unspecified, uncomplicated
CPT/HCPCS: 20552; 96374; 96375; 99283; J1170

== ENCOUNTER 2018-09-26 17:36 | Emergency (ER) | payer MEDICAID ==
--- NOTE | 2018-09-26 20:46 | ED Physician Documentation ---
PD HPI HEADACHE - Stated complaint Stated Complaint: TAYLOR/DIZZINESS - Chief complaint Chief Complaint: Neuro - History obtained from History obtained from: Patient - History of Present Illness Timing - onset: How many weeks ago (1) Timing - details: Gradual onset, Constant, Waxing and waning Pain level now: 8 Worst headache ever?: No: Worst headache ever? Location: Global Quality: Throbbing, Aching Associated symptoms: No: Fever, Stiff neck, Nausea, Vomiting, Weakness, Numbness, Syncope, Seizure, Eye pain, Vision changes Improved by: Rest Worsened by: Moving Similar symptoms before: No diagnosis, Work up / diagnostics (recent ED testing including blood tests, nondiagnostic results) Recently seen: Emergency Dept - Additional information Additional information: 3rd [facility] ED visit in 5 days for same c/o. c/o neck pain and TAYLOR. worse with rotation of neck. inadequate relief with gabapentin, ativan, xanax, benadryl, tylenol, ibuprofen, toradol, percocet, hydrocodone, flexeril. cannot take steroids due to side effects. denies injury. contacted PMD and was told no appointments until October 11. Review of Systems Constitutional: reports: Reviewed and negative Eyes: reports: Reviewed and negative Cardiac: reports: Reviewed and negative Respiratory: reports: Reviewed and negative GI: reports: Reviewed and negative : denies: Incontinent Musculoskeletal: reports: Neck pain. 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 : None HEENT: Other Psych: Depression, Anxiety Musculoskeletal: Fibromyalgia Derm: None - Past Surgical History Past Surgical History: Yes /CAREER DEVELOPMENT COORDINATOR/TEACHER: section, Tubal ligation - Present Medications Home Medications: Ambulatory Orders Medication Instructions Recorded Confirmed Enalapril [Vasotec] 10 mg PO DAILY 05/06/16 09/26/18 Sertraline HCl [Zoloft] 100 mg PO DAILY 05/06/16 09/26/18 cloNIDine 0.1 MG PATCH 1 patch TOP TITR 06/18/16 09/26/18 [Adwbivdb-Gut-8] Multivitamin [Theragran] 1 tab PO DAILYWM #30 tablet 05/04/17 09/26/18 Oxycodone HCl/Acetaminophen 1 - 2 each PO Q6H PRN #7 tablet 09/21/18 [Percocet 5-325 mg Tablet] Metoprolol Tartrate 100 mg ORAL DAILY 09/23/18 09/26/18 Oxycodone HCl/Acetaminophen 1 - 2 each PO Q6H PRN #25 tablet 09/23/18 09/26/18 [Percocet 7.5-325 mg Tablet] Methocarbamol [Robaxin-750] 1 - 2 tab PO QID PRN #20 tablet 09/26/18 oxyCODONE [Roxicodone] 1 - 2 tab PO Q6H PRN #15 tablet 09/26/18 - Allergies Allergies/Adverse Reactions: Allergies Allergy/AdvReac Type Severity Reaction Status Date / Time No Known Drug Allergies Allergy Verified 09/26/18 17:45 - Social History Does the pt smoke?: Yes Smoking Status: Current every day smoker Does the pt drink ETOH?: Yes Does the pt have substance abuse?: Yes Substance Use and Type: Prescription Pills - Immunizations Immunizations are current?: Yes - POLST Patient has POLST: No POLST Status: Full Code PD ED PE NORMAL - Vitals Vital signs reviewed: Yes - General General: Alert and oriented X 3, No acute distress, Well developed/nourished - HEENT HEENT: Moist mucous membranes - Neck Neck: Supple, no meningeal sign, No bony TTP - Cardiac Cardiac: RRR, No murmur - Respiratory Respiratory: No respiratory distress, Clear bilaterally - Back Back: No spinal TTP - Derm Derm: Normal color, Warm and dry, No rash - Neuro Neuro: Alert and oriented X 3, land department head 2-12 intact, No motor deficit, No sensory deficit, Normal speech Results - Vitals Vitals: Oxygen O2 Source Room air - Labs Labs: Laboratory Tests 09/26/18 20:55 Urine Color LT. YELLOW Urine Clarity CLEAR Urine pH 5.5 Ur Specific [place] 1.020 Urine Protein NEGATIVE Urine Glucose (UA) NEGATIVE Urine Ketones NEGATIVE Urine Occult Blood NEGATIVE Urine Nitrite NEGATIVE Urine Bilirubin NEGATIVE Urine Urobilinogen 0.2 (NORMAL) Ur Leukocyte Esterase NEGATIVE Urine RBC 0-5 Urine WBC 0-3 Ur Squamous Epith Cells MANY Squamous H Urine Bacteria Few Urine Culture Comments NOT INDICATED PD MEDICAL DECISION MAKING - ED course Complexity details: reviewed old records, considered differential, d/w patient ED course: improved after IM dilaudid and PO robaxin. says she will call PMD again on Saturday (holiday on Saturday) and ask about sooner f/u. she says she is almost out of percocet, as she is taking 2 every 6 hours (per instructions). Departure - Departure Disposition: Home, Self Care Clinical Impression: Headache Qualifiers: Headache type: unspecified Headache chronicity pattern: acute headache Intractability: not intractable Qualified Code(s): R51 - Headache Condition: Good Instructions: ED Cephalgia Unspecified Follow-Up: ROXANNE REDMAN [Primary Care Provider] - Prescriptions: Methocarbamol [Robaxin-750] 1 - 2 tab PO QID PRN #20 tablet PRN Reason: Spasms oxyCODONE [Roxicodone] 1 - 2 tab PO Q6H PRN #15 tablet PRN Reason: Pain Forms: Activity restrictions Discharge Date/Time: 09/26/18 23:28
[2018-09-26 21:09] LABS: BILIRUBIN,URINE NEGATIVE (NEGATIVE); GLUCOSE, URINE (UA) NEGATIVE (NEGATIVE); KETONES,URINE (UA) NEGATIVE (NEGATIVE); LEUKOCYTE ESTERASE, URINE NEGATIVE (NEGATIVE); NITRITE,URINE NEGATIVE (NEGATIVE); OCCULT BLOOD,URINE NEGATIVE (NEGATIVE); PH,URINE 5.5 PH (5.0-7.5); PROTEIN,URINE NEGATIVE (NEGATIVE); UROBILINOGEN,URINE 0.2 (NORMAL) E.U./dL (NORMAL)
[2018-09-26] MEDS ORDERED: HYDROmorphone 2 MG/ML VIAL IM STA (21:16)
[2018-09-26 21:21] LABS: CLARITY,URINE CLEAR (CLEAR)
[2018-09-26 21:22] LABS: BACTERIA,URINE Few /HPF (None Seen); RBC,URINE 0-5 /HPF (0-5); SQUAMOUS EPITHELIAL CELL,UR MANY Squamous (<= Few)
[2018-09-26 23:28] VITALS: BP 174/96
== END 2018-09-26 23:28 | disposition home or self-care (01) ==
LOC: ED 17:36
DX: R51 Headache (principal); I10 Essential (primary) hypertension; F17.200 Nicotine dependence, unspecified, uncomplicated
CPT/HCPCS: 81001; 96372; 99283; 99284; J1170; 87086

== ENCOUNTER 2019-03-02 21:52 | Emergency (ER) | payer MEDICAID ==
--- NOTE | 2019-03-02 22:05 | ED Physician Documentation ---
History of Present Illness - Stated complaint Stated Complaint: EAR PX - Chief complaint Chief Complaint: Heent - History obtained from History obtained from: Patient - Additonal information Additional information: Patient is a 28-year-old female presenting with bilateral ear pain associated with purulent ear drainage and odor. Patient notes that she was treated for an ear infection in the left ear several weeks ago but is unsure what antibiotic she took. Patient does report placing a Q-tip into the ear, but denies other trauma. Patient denies fever, chills, nasal congestion or rhinorrhea, sore throat or other complaints. No change to hearing. No other improving or worsening factors noted. Review of Systems Constitutional: denies: Fever Ears: reports: Ear pain, Drainage/discharge. 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 : None HEENT: Other Psych: Depression, Anxiety Musculoskeletal: Fibromyalgia Derm: None - Past Surgical History Past Surgical History: Yes /EDI ARCHITECT: section, Tubal ligation - Present Medications Home Medications: Ambulatory Orders Medication Instructions Recorded Confirmed Enalapril [Vasotec] 10 mg PO DAILY 05/06/16 09/26/18 Sertraline HCl [Zoloft] 100 mg PO DAILY 05/06/16 09/26/18 cloNIDine 0.1 MG PATCH 1 patch TOP TITR 06/18/16 09/26/18 [[place]-Zpv-1] Multivitamin [Theragran] 1 tab PO DAILYWM #30 tablet 05/04/17 09/26/18 Metoprolol Tartrate 100 mg ORAL DAILY 09/23/18 09/26/18 Gabapentin 600 mg PO BID 10/26/18 10/26/18 Hydrocodone/Acetaminophen [Vicodin 0 mg 10/26/18 5-300 mg Tablet] Neomycin/Polymyxin B Sulf/Hc 5 drp OT QID 7 Days drops.susp 03/02/19 [Wknxjspe-Cyoywvkqr-Nd Ear Susp] - Allergies Allergies/Adverse Reactions: Allergies Allergy/AdvReac Type Severity Reaction Status Date / Time No Known Drug Allergies Allergy Verified 03/02/19 22:01 - Social History Does the pt smoke?: Yes Smoking Status: Current every day smoker Does the pt drink ETOH?: Yes Does the pt have substance abuse?: Yes - Immunizations Immunizations are current?: Yes - POLST Patient has POLST: No POLST Status: Full Code PD ED PE NORMAL - Vitals Vital signs reviewed: Yes (Hypertensive (chronic)) - General General: Alert and oriented X 3, No acute distress, Well developed/nourished - HEENT HEENT: Atraumatic, Moist mucous membranes, Pharynx benign. No: Ears normal (Both TMs nonbulging, nonerythematous without evidence of rupture. Remainder of right ear exam unremarkable, however, left ear exam indicated purulent debris in the ear canal. External ears unremarkable bilaterally.) - Respiratory Respiratory: No respiratory distress - Derm Derm: Normal color, Warm and dry, No rash - Extremities Extremities: No deformity, No tenderness to palpate - Neuro Neuro: Alert and oriented X 3, No motor deficit, No sensory deficit - Psych Psych: Normal mood, Normal affect Results - Vitals Vitals: Vital Signs - 24 hr 03/02/19 21:59 Temperature 37.2 C Heart Rate 89 Respiratory 17 Rate Blood Pressure 189/130 H O2 Saturation 100 Oxygen O2 Source Room air PD MEDICAL DECISION MAKING - ED course Complexity details: considered differential, d/w patient ED course: Patient presenting with concern for bilateral ear pain and drainage that is odorous. Patient denies specific trauma, but was recently treated for ear infection of the left ear. Patient denies placing water into the ear or swimming. However, she has been using Q-tips. Do not find evidence of otitis media or ruptured TM in either ear, but likely otitis externa to left ear. No evidence of mastoiditis, pharyngitis, tonsillitis, peritonsillar abscess or other infection on exam. Discussed avoidance of water in ear, use of otic drops, supportive cares, return precautions, and follow-up. Patient voiced understanding and is comfortable with discharge plan. Departure - Departure Disposition: 01 Home, Self Care Clinical Impression: Otitis externa Qualifiers: Otitis externa type: unspecified type Chronicity: acute Laterality: left Qualified Code(s): H60.502 - Unspecified acute noninfective otitis externa, left ear Instructions: ED Otitis Externa Follow-Up: ROXANNE REDMAN [Primary Care Provider] - Within 3 Days Prescriptions: Neomycin/Polymyxin B Sulf/Hc [Gapdywdb-Jcfwfdtjo-Oc Ear Susp] 5 drp OT QID 7 Days drops.susp Comments: Please do not allow water into either ear. Please do not place anything into the ears including Q-tips. Please use antibiotic drops for left ear infection. Recommend follow-up with primary care physician and return to ED sooner if experience worsening symptoms or have other concerns.
[2019-03-02 22:41] VITALS: BP 180/131
== END 2019-03-02 22:39 | disposition home or self-care (01) ==
LOC: ED 21:52
DX: H60.502 Unspecified acute noninfective otitis externa, left ear (principal); I10 Essential (primary) hypertension; F17.200 Nicotine dependence, unspecified, uncomplicated
CPT/HCPCS: 99282; 99283

== ENCOUNTER 2019-03-22 13:46 | Emergency (ER) | payer MEDICAID ==
[2019-03-22 14:03] VITALS: BP 146/92
--- NOTE | 2019-03-22 15:42 | ED Physician Documentation ---
PD HPI SKIN - Stated complaint Stated Complaint: FOOT PX - Chief complaint Chief Complaint: Wound - History obtained from History obtained from: Patient - History of Present Illness Timing - onset: How many days ago (4) Timing - duration: Days (4) Timing - details: Gradual onset, Still present Location: Face, RLE Quality / character: Discolored, Swelling. No: Draining Contributing factors: Other (cracks to the 5th toe) Similar symptoms before: Diagnosis (cellulitis) Recently seen: Clinic - Additional information Additional information: 28-year-old female has developed cracked skin on the underside of her right fifth toe and she has developed swelling that extends over to the dorsum of the foot. She has been into see a doctor at [facility] and she was prescribed Keflex. Despite taking the Keflex she has had persistence and progression of symptoms. She states that she also has had a small area of redness in her left eyebrow and this is an area where she has had cellulitis previously. 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 Review of Systems Constitutional: reports: Fatigue. denies: Fever Eyes: reports: Other (irritation to the left eyebrow area). denies: Decreased vision Ears: denies: Ear pain Nose: denies: Rhinorrhea / runny nose, Congestion Cardiac: denies: Chest pain / pressure Respiratory: denies: Dyspnea, Cough GI: denies: Abdominal Pain, Nausea, Vomiting, Constipation, Diarrhea : denies: Dysuria, Frequency Skin: reports: Other (tender swollen red area to the right foot) Musculoskeletal: reports: Extremity pain. 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: section, Tubal ligation - Present Medications Home Medications: Ambulatory Orders Medication Instructions Recorded Confirmed Enalapril [Vasotec] 10 mg PO DAILY 05/06/16 09/26/18 Sertraline HCl [Zoloft] 100 mg PO DAILY 05/06/16 09/26/18 cloNIDine 0.1 MG PATCH 1 patch TOP TITR 06/18/16 09/26/18 [Qgypjmxu-Gxh-5] Multivitamin [Theragran] 1 tab PO DAILYWM #30 tablet 05/04/17 09/26/18 Metoprolol Tartrate 100 mg ORAL DAILY 09/23/18 09/26/18 Gabapentin 600 mg PO BID 10/26/18 10/26/18 Hydrocodone/Acetaminophen [Vicodin 0 mg 10/26/18 5-300 mg Tablet] Neomycin/Polymyxin B Sulf/Hc 5 drp OT QID 7 Days drops.susp 03/02/19 [Rejylrxe-Cvwwvgmkv-Ef Ear Susp] Cephalexin [Keflex] 500 mg PO QID 03/22/19 03/22/19 Hydrocodone/Acetaminophen 1 - 2 each PO Q6H PRN #14 tablet 03/22/19 [Hydrocodon-Acetaminophen 5-325] Mupirocin 1 gm TP BID #22 gm 03/22/19 Sulfamethoxazole/Trimethoprim 1 each PO BID #14 tablet 03/22/19 [Sulfamethoxazole-Tmp Ds Tablet] - Allergies Allergies/Adverse Reactions: Allergies Allergy/AdvReac Type Severity Reaction Status Date / Time No Known Drug Allergies Allergy Verified 03/02/19 22:01 - Social History Does the pt smoke?: Yes Smoking Status: Current every day smoker Does the pt drink ETOH?: Yes Does the pt have substance abuse?: Yes - Immunizations Immunizations are current?: Yes - POLST Patient has POLST: No POLST Status: Full Code PD ED PE NORMAL - Vitals Vital signs reviewed: Yes (hypertensive) - General General: No acute distress, Well developed/nourished - HEENT HEENT: Atraumatic, PERRL, EOMI, Other (There is a 7mm round red spot in the [facility] eyebrow. There is no swelling of the jyoti-orbital tissues. ) - Respiratory Respiratory: No respiratory distress - Derm Derm: Normal color, Warm and dry - Extremities Extremities: No deformity, Other (There is erythema swelling and tenderness without fluctuance to the right foot over the dorsum of the right 5th digit and distal metatarsal. There is dried cracked skin on the plantar surface of the crease of the right 5th toe. ) - Neuro Neuro: Alert and oriented X 3, defense travel administrator 2-12 intact, No motor deficit, No sensory deficit, Normal speech Eye Opening: Spontaneous Motor: Obeys Commands Verbal: Oriented GCS Score: 15 - Psych Psych: Normal mood, Normal affect Results - Vitals Vitals: Vital Signs - 24 hr 03/22/19 14:00 Temperature 36.7 C Heart Rate 75 Respiratory 14 Rate Blood Pressure 146/92 H O2 Saturation 99 Oxygen O2 Source Room air PD MEDICAL DECISION MAKING - ED course Complexity details: considered differential, d/w patient ED course: 28-year-old female who is been placed on Keflex has had no improvement to the infection on her right foot. She does have a spot on her forehead as well that looks like a possible MRSA and I have added Septra into her regimen and asked her to use a warm compress. We will use a mupirocin to the spot on her eyebrow. Departure - Departure Disposition: 01 Home, Self Care Clinical Impression: Cellulitis Qualifiers: Site of cellulitis: extremity Site of cellulitis of extremity: toe Laterality: right Qualified Code(s): L03.031 - Cellulitis of right toe Instructions: ED Infec Skin Cellulitis Follow-Up: ROXANNE REDMAN [Primary Care Provider] - Prescriptions: Hydrocodone/Acetaminophen [Hydrocodon-Acetaminophen 5-325] 1 - 2 each PO Q6H PRN #14 tablet PRN Reason: pain Mupirocin 1 gm TP BID #22 gm Sulfamethoxazole/Trimethoprim [Sulfamethoxazole-Tmp Ds Tablet] 1 each PO BID #14 tablet Comments: Apply the mupirocin to the spot on your forehead twice per day. Forms: Activity restrictions
== END 2019-03-22 15:53 | disposition home or self-care (01) ==
LOC: ED 13:46
DX: L03.031 Cellulitis of right toe (principal); L98.9 Disorder of the skin and subcutaneous tissue, unspecified; I10 Essential (primary) hypertension; F17.200 Nicotine dependence, unspecified, uncomplicated
CPT/HCPCS: 99283; 99284

== ENCOUNTER 2019-03-31 08:50 | Emergency (ER) | payer MEDICAID ==
[2019-03-31 09:01] VITALS: BP 168/110
[2019-03-31] MEDS ORDERED: DEXAMETHASONE 10 MG/ML VIAL PO STA (09:34)
[2019-03-31] MEDS ORDERED: CHERRY SYRUP 10 ML UDC PO ONE (09:34)
[2019-03-31] MEDS ORDERED: KETOROLAC 60 MG/2 ML VIAL IM STA (09:37)
--- NOTE | 2019-03-31 09:37 | ED Physician Documentation ---
PD HPI BACK PAIN - Stated complaint Stated Complaint: L LEG PX - Chief complaint Chief Complaint: Back Pain - History obtained from History obtained from: Patient - History of Present Illness Timing - onset: How many days ago (2) Timing - duration: Days (2) Timing - details: Abrupt onset, Still present Location: Lower, Left Quality: Pain, Spasm, Sharp Associated symptoms: Numbness (to the top of the left foot). No: Fever, Weakness, Incontinent of urine, Unable to urinate, Hematuria, Incontinent of stool Improves with: Rest, Position Worsened by: Movement Contributing factors: Lifting, Other (cleaned house and moved couch the evening prior to the onset of symptoms) Similar symptoms before: Has not had sx before Recently seen: Emergency Dept (improved with cellulitis to the right foot.) - Additional information Additional information: 28-year-old female has had a recent cellulitis to her right lateral foot and this has resolved. She was treated for that about 10 days ago. 2 days ago she developed acute lower back pain on the left side radiating down her left leg down the back of her left thigh and the medial aspect of the left calf as well as the dorsum of the left foot. She has some numbness over the first and second toe on the left foot. She has not had these symptoms previously she has tried a number of medications without resolution of her symptoms. Review of Systems Constitutional: denies: Fever Eyes: denies: Decreased vision Ears: denies: Ear pain Nose: denies: Congestion Throat: denies: Sore throat Respiratory: denies: Cough GI: denies: Vomiting : denies: Dysuria Skin: denies: Rash Musculoskeletal: reports: Back pain, Extremity pain. denies: Neck pain Neurologic: reports: Numbness. 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 ENGINEERING TECHNICIAN: section, Tubal ligation - Present Medications Home Medications: Ambulatory Orders Medication Instructions Recorded Confirmed Enalapril [Vasotec] 10 mg PO DAILY 05/06/16 09/26/18 Sertraline HCl [Zoloft] 100 mg PO DAILY 05/06/16 09/26/18 cloNIDine 0.1 MG PATCH 1 patch TOP TITR 06/18/16 09/26/18 [Chsshsqt-Mcz-1] Multivitamin [Theragran] 1 tab PO DAILYWM #30 tablet 05/04/17 09/26/18 Metoprolol Tartrate 100 mg ORAL DAILY 09/23/18 09/26/18 Gabapentin 600 mg PO BID 10/26/18 10/26/18 Hydrocodone/Acetaminophen [Vicodin 0 mg 10/26/18 5-300 mg Tablet] Neomycin/Polymyxin B Sulf/Hc 5 drp OT QID 7 Days drops.susp 03/02/19 [Ykgsyyag-Delgfpyiz-Go Ear Susp] Cephalexin [Keflex] 500 mg PO QID 03/22/19 03/22/19 Hydrocodone/Acetaminophen 1 - 2 each PO Q6H PRN #14 tablet 03/22/19 [Hydrocodon-Acetaminophen 5-325] Mupirocin 1 gm TP BID #22 gm 03/22/19 Sulfamethoxazole/Trimethoprim 1 each PO BID #14 tablet 03/22/19 [Sulfamethoxazole-Tmp Ds Tablet] Cyclobenzaprine [Flexeril] 10 mg PO TID PRN #20 tablet 03/31/19 Hydrocodone/Acetaminophen 1 - 2 each PO Q6H PRN #14 tablet 03/31/19 [Hydrocodon-Acetaminophen 5-325] - Allergies Allergies/Adverse Reactions: Allergies Allergy/AdvReac Type Severity Reaction Status Date / Time No Known Drug Allergies Allergy Verified 03/31/19 09:01 - Social History Does the pt smoke?: Yes Smoking Status: Current every day smoker Does the pt drink ETOH?: Yes Does the pt have substance abuse?: Yes - Immunizations Immunizations are current?: Yes - POLST Patient has POLST: No POLST Status: Full Code PD ED PE NORMAL - Vitals Vital signs reviewed: Yes (hypertensive ) - General General: Alert and oriented X 3, Well developed/nourished, Other (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 ) - HEENT HEENT: Atraumatic, PERRL, EOMI - Respiratory Respiratory: No respiratory distress - Back Back: No CVA TTP, No spinal TTP, Other (There is pain to the paraspinous muscles of the lower lumbar region worse on the left and radiating into the sciatic notch. ) - Derm Derm: Normal color, Warm and dry, No rash - Extremities Extremities: No deformity, No edema - Neuro Neuro: Alert and oriented X 3, spool salvager 2-12 intact, No motor deficit, Normal speech, Other (subjective tingling to the dorsum of the left foot over the web space of the 1st/2nd toes) Eye Opening: Spontaneous Motor: Obeys Commands Verbal: Oriented GCS Score: 15 - Psych Psych: Normal mood, Normal affect Results - Vitals Vitals: Vital Signs - 24 hr 03/31/19 09:00 Temperature 36.7 C Heart Rate 94 Respiratory 18 Rate Blood Pressure 168/110 H O2 Saturation 100 Oxygen O2 Source Room air PD MEDICAL DECISION MAKING - ED course Complexity details: considered differential, d/w patient ED course: 28-year-old female with acute sciatica is administered dexamethasone 10 mg orally and Toradol 60 mg IM and we will put her on a course of pain medication a muscle relaxant and off work for 2 days. Departure - Departure Disposition: 01 Home, Self Care Clinical Impression: Sciatica Qualifiers: Laterality: left Qualified Code(s): M54.32 - Sciatica, left side Condition: Stable Instructions: ED Sciatica Follow-Up: ROXANNE REDMAN [Primary Care Provider] - Prescriptions: Cyclobenzaprine [Flexeril] 10 mg PO TID PRN #20 tablet PRN Reason: Spasms Hydrocodone/Acetaminophen [Hydrocodon-Acetaminophen 5-325] 1 - 2 each PO Q6H PRN #14 tablet PRN Reason: pain Forms: Activity restrictions
== END 2019-03-31 10:00 | disposition home or self-care (01) ==
LOC: ED 08:50
DX: M54.32 Sciatica, left side (principal); I10 Essential (primary) hypertension; F17.200 Nicotine dependence, unspecified, uncomplicated
CPT/HCPCS: 96372; 99283; 99284; A9270

== ENCOUNTER 2019-05-28 18:21 | Emergency (ER) | payer MEDICAID ==
[2019-05-28] MEDS ORDERED: METHOCARBAMOL 500 MG TABLET PO STA (19:23)
[2019-05-28] MEDS ORDERED: KETOROLAC 60 MG/2 ML VIAL IM STA (19:23)
[2019-05-28] MEDS ORDERED: oxyCODONE 5 MG TABLET PO STA (19:23)
[2019-05-28 20:55] VITALS: BP 145/101
[2019-05-28] MEDS ORDERED: diazePAM INJ 5 MG/ML SYRINGE IM STA (20:58)
--- NOTE | 2019-05-28 21:11 | ED Physician Documentation ---
History of Present Illness - Stated complaint Stated Complaint: NECK PX - Chief complaint Chief Complaint: General - History obtained from History obtained from: Patient - History of Present Illness Timing: Today Pain level max: 8 Pain level now: 8 - Additonal information Additional information: 28-year-old female states that she awoke with neck pain this morning. Worse with movement and better with rest. No trauma. No fevers. No recent illness. Took Tylenol without relief. No numbness or tingling. No focal neurological deficits. She is not , breast-feeding or trying to become . 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 HEENT: Other Psych: Depression, Anxiety Musculoskeletal: Fibromyalgia Derm: None - Past Surgical History Past Surgical History: Yes /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, Tubal ligation - Present Medications Home Medications: Ambulatory Orders Medication Instructions Recorded Confirmed Enalapril [Vasotec] 10 mg PO DAILY 05/06/16 09/26/18 Sertraline HCl [Zoloft] 100 mg PO DAILY 05/06/16 09/26/18 cloNIDine 0.1 MG PATCH 1 patch TOP TITR 06/18/16 09/26/18 [[id number]-9] Multivitamin [Theragran] 1 tab PO DAILYWM #30 tablet 05/04/17 09/26/18 Metoprolol Tartrate 100 mg ORAL DAILY 09/23/18 09/26/18 Gabapentin 600 mg PO BID 10/26/18 10/26/18 Meloxicam [Mobic] 15 mg PO DAILY PRN #20 tablet 05/28/19 Methocarbamol [Robaxin-750] 750 mg PO Q8H PRN #14 tablet 05/28/19 Oxycodone HCl/Acetaminophen 1 - 2 each PO Q6H PRN #10 tablet 05/28/19 [Percocet 5-325 mg Tablet] - Allergies Allergies/Adverse Reactions: Allergies Allergy/AdvReac Type Severity Reaction Status Date / Time No Known Drug Allergies Allergy Verified 05/28/19 18:28 - Social History Does the pt smoke?: Yes Smoking Status: Current every day smoker Does the pt drink ETOH?: No Does the pt have substance abuse?: No - Immunizations Immunizations are current?: Yes - POLST Patient has POLST: No POLST Status: Full Code PD ED PE NORMAL - Vitals Vital signs reviewed: Yes - General General: Alert and oriented X 3, No acute distress - HEENT HEENT: PERRL, Moist mucous membranes, Other (Paraspinal spasm paracervical. No midline tenderness. 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 Pain improved. Spasm improved. Will continue on pain medication and muscle relaxants for home. No indication of subarachnoid hemorrhage or meningitis. No evidence of fracture. Neurologically intact. No evidence of carotid dissection. Patient counseled regarding signs and symptoms for which I believe and urgent re- evaluation would be necessary. Patient with good understanding of and agreement to plan and is comfortable going home at this time This document was made in part using voice recognition software. While efforts are made to proofread this document, sound alike and grammatical errors may occur. Departure - Departure Disposition: 01 Home, Self Care Clinical Impression: Neck muscle spasm Condition: Good Instructions: ED Spasm Neck No Injury Follow-Up: your,doctor in 1 week [Other] Prescriptions: Meloxicam [Mobic] 15 mg PO DAILY PRN #20 tablet PRN Reason: pain Methocarbamol [Robaxin-750] 750 mg PO Q8H PRN #14 tablet PRN Reason: neck spasm Oxycodone HCl/Acetaminophen [Percocet 5-325 mg Tablet] 1 - 2 each PO Q6H PRN #10 tablet PRN Reason: pain Comments: Return if you worsen. Follow-up with your doctor for further care. Continue gentle stretching at home. This may take a few days to resolve. Do not drink alcohol or drive while on narcotic pain medicine. Note that many narcotic pain relievers also contain tylenol/acetaminophen. Please ensure that your total dose of acetaminophen from all sources does not exceed 3 grams (3000mg) per day. You may constipated on this medication, take a stool softener such as "Colace" twice a day while you are on it. Also recommend a [id number]-gpa-[id number] laxative such as senna or MiraLAX any day that you do not have a bowel movement. If you received narcotic pain medication in the emergency department, do not drive or operate machinery for the next 24 hours. Discharge Date/Time: 05/28/19 21:25
== END 2019-05-28 21:25 | disposition home or self-care (01) ==
LOC: ED 18:21
DX: M62.838 Other muscle spasm (principal); I10 Essential (primary) hypertension; F17.200 Nicotine dependence, unspecified, uncomplicated
CPT/HCPCS: 96372; 99283; 99284; A9270

== ENCOUNTER 2019-06-24 08:47 | Emergency (ER) | payer MEDICAID ==
[2019-06-24] MEDS ORDERED: KETOROLAC 30 MG/ML VIAL IVP STA (09:23)
[2019-06-24] MEDS ORDERED: ONDANSETRON 4 MG/2 ML VIAL IVP STA (09:24)
[2019-06-24] MEDS ORDERED: SODIUM CHLORIDE 0.9% 1,000 ML IV ONE (09:25)
--- NOTE | 2019-06-24 09:30 | ED Physician Documentation ---
PD HPI HEENT - Stated complaint Stated Complaint: FEVER/HEAD/NECK PX - Chief complaint Chief Complaint: Abd Pain - History obtained from History obtained from: Patient - History of Present Illness Timing - onset: How many days ago (3) Timing - duration: Days (3) Timing - details: Gradual onset, Still present, Other (worsening) Severity Comments: moderate R ear pain Location: Right ear Improves: Nothing Worsens: Other (touching the ear) Associated symptoms: Fever, Other (reports nausea and vomiting since starting meds given yesterday (including vicodin and doxycyline for her ear). States she was also started on ear drops but cant recall the name). No: Congestion, Rhinorrhea, Trismus, Unable to swallow, Swollen nodes, Facial swelling, Headache, Cough Similar symptoms before: Diagnosis (otitis externa) Recently seen: Emergency Dept - Treatment prior to arrival Treatment prior to arrival: hydrocodone, tylenol, ear drops and doxycycline Review of Systems Ten Systems: 10 systems reviewed and negative Constitutional: reports: Fever, Fatigue, Other (body aches) Eyes: reports: Reviewed and negative Ears: reports: Loss of hearing, Ear pain, Drainage/discharge Nose: reports: Reviewed and negative Throat: reports: Reviewed and negative Cardiac: reports: Reviewed and negative Respiratory: reports: Reviewed and negative GI: reports: Nausea, Vomiting. denies: Abdominal Pain, Diarrhea : reports: Reviewed and negative Skin: reports: Reviewed and negative Musculoskeletal: reports: Neck pain Neurologic: reports: Headache. 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, Tubal ligation - Present Medications Home Medications: Ambulatory Orders Medication Instructions Recorded Confirmed Enalapril [Vasotec] 10 mg PO DAILY 05/06/16 09/26/18 Sertraline HCl [Zoloft] 100 mg PO DAILY 05/06/16 09/26/18 cloNIDine 0.1 MG PATCH 1 patch TOP TITR 06/18/16 09/26/18 [[id number]-Wfu-7] Multivitamin [Theragran] 1 tab PO DAILYWM #30 tablet 05/04/17 09/26/18 Metoprolol Tartrate 100 mg ORAL DAILY 09/23/18 09/26/18 Gabapentin 600 mg PO BID 10/26/18 10/26/18 Meloxicam [Mobic] 15 mg PO DAILY PRN #20 tablet 05/28/19 Methocarbamol [Robaxin-750] 750 mg PO Q8H PRN #14 tablet 05/28/19 Oxycodone HCl/Acetaminophen 1 - 2 each PO Q6H PRN #10 tablet 05/28/19 [Percocet 5-325 mg Tablet] Clotrimazole 3 drops RIGHTEAR TID #1 bottle 06/23/19 Doxycycline Monohydrate 100 mg PO BID #14 tablet 06/23/19 Fluconazole [Diflucan] 150 mg PO ONCE #2 tablet 06/23/19 Hydrocodone/Acetaminophen 1 each PO Q6H PRN #12 tablet 06/23/19 [Hydrocodon-Acetaminophen 5-325] Neomycin/Polymyx/Hc Otic Drops 4 drops OT QID #1 bottle 06/23/19 [Cortisporin Ear Susp] - Allergies Allergies/Adverse Reactions: Allergies Allergy/AdvReac Type Severity Reaction Status Date / Time No Known Drug Allergies Allergy Verified 06/24/19 09:07 - Social History Does the pt smoke?: Yes Smoking Status: Current every day smoker Does the pt drink ETOH?: No Does the pt have substance abuse?: No - Immunizations Immunizations are current?: Yes - POLST Patient has POLST: No POLST Status: Full Code PD ED PE NORMAL - Vitals Vital signs reviewed: Yes - General General: Alert and oriented X 3, No acute distress, Well developed/nourished - HEENT HEENT: Atraumatic, Pharynx benign - Neck Neck: Supple, no meningeal sign, No JVD, Other (no meningeal signs, full ROM) - Cardiac Cardiac: RRR - Respiratory Respiratory: No respiratory distress - Abdomen Abdomen: Soft, Non tender, Non distended - Female Female : Deferred - Rectal Rectal: Deferred - Derm Derm: Normal color, Warm and dry, No rash - Neuro Neuro: Alert and oriented X 3, No motor deficit, No sensory deficit, Normal speech Eye Opening: Spontaneous Motor: Obeys Commands Verbal: Oriented GCS Score: 15 - Psych Psych: Normal mood, Normal affect PD ED PE EXPANDED - HEENT HEENT: Other (R ear canal with moderate discharge and drainage, redness, tenderness to palpation of the ear, tenderness and pain with pulling on the ear and tenderness behind the R ear around the mastoid (though not swollen or red)) Results - Vitals Vitals: Vital Signs - 24 hr 06/24/19 06/24/19 06/24/19 09:06 10:23 11:23 Temperature 36.5 C 36.7 C Heart Rate 90 72 62 Respiratory 20 18 18 Rate Blood Pressure 165/115 H 144/104 H 158/138 H O2 Saturation 97 98 99 Oxygen O2 Source Room air - Labs Labs: Laboratory Tests 06/24/19 06/24/19 06/24/19 09:29 09:29 09:42 WBC 5.0 RBC 4.66 Hgb 12.3 Hct 39.1 MCV 83.9 MCH 26.4 L MCHC 31.5 L RDW 14.9 Plt Count 251 MPV 10.7 Neut # (Auto) 3.4 Lymph # (Auto) 1.0 L [place] # (Auto) 0.4 Eos # (Auto) 0.1 Baso # (Auto) 0.1 Absolute Nucleated RBC 0.00 Nucleated RBC % 0.0 Sodium 139 Potassium 4.0 Chloride 106 Carbon Dioxide 24 Anion Gap 9.0 BUN 18 Creatinine 0.6 Estimated GFR (MDRD) 117 Glucose 108 H Calcium 8.8 Influenza A (Rapid) Negative Influenza B (Rapid) Negative - Rads (name of study) CT max/face Radiology: Final report received, See rad report PD MEDICAL DECISION MAKING - ED course Complexity details: reviewed old records, reviewed results, re-evaluated patient, considered differential, d/w patient ED course: ddx -otitis externa, otitis media, mastoiditis, meningitis. 28 y/o F with ear pain, neck pain, body aches, subjective report of fever. Seen yesterday and diagnosed with otitis externa, started on antibiotics, antifungals and vicodin. Had some vomiting thereafter and I suspect this is a medication side effect and not due to the illness since it occurred after taking the vicodin and doxycycline. Given some mastoid pain I obtained a CT to evaluate for mastoiditis which was neg. Her labs and flu swab are normal. I Agree with prior assessment that she has otitis externa and is already on corticosporin ear drops, this will likely take more than one day to resolve. Can continue meds except advised discontinuing the vicodin and advised ibuprofen since she is vomiting with vicodin and can also discontinue the doxycycline given vomiting as she will likely improve with topical antibiotics alone. Departure - Departure Disposition: 01 Home, Self Care Clinical Impression: Otitis externa Condition: Stable Instructions: ED Otitis Externa Follow-Up: your, doctor [Other] Comments: You have otitis externa (swimmer's ear). Your labs are normal. Your flu swab is negative and you have no evidence of mastoiditis on your CT scan. Continue taking the topical Corticosporin ear drops. Discontinue doxycycline and the hydrocodone. Instead take ibuprofen 600mg every 8 hours and tylenol as needed for pain. Discharge Date/Time: 06/24/19 11:24
[2019-06-24] MEDS ORDERED: IOVERSOL 320 100 ML VIAL IVP ONE ×2 (09:43→10:22)
[2019-06-24 09:49] LABS: BASOPHILS # (AUTO) 0.1 10^3/uL (0.0-0.1); BASOPHILS % (AUTO) 1.2 %; EOSINOPHILS # (AUTO) 0.1 10^3/uL (0.0-0.7); EOSINOPHILS % (AUTO) 2.6 %; HGB - HEMOGLOBIN 12.3 g/dL (12.0-16.0); LYMPHOCYTES % (AUTO) 20.6 %; MEAN CORPUSCULAR HEMOGLOBIN 26.4 pg (27.0-31.0); MEAN CORPUSCULAR HGB CONC 31.5 g/dL (32.0-36.0); MEAN CORPUSCULAR VOLUME 83.9 fL (81.0-99.0); MEAN PLATELET VOLUME 10.7 fL (7.9-10.8); MONOCYTES # (AUTO) 0.4 10^3/uL (0.0-1.0); MONOCYTES % (AUTO) 7.5 %; NEUTROPHILS # (AUTO) 3.4 10^3/uL (1.5-6.6); NEUTROPHILS % (AUTO) 67.7 %; PLT - PLATELET COUNT 251 10^3/uL (130-450); RED BLOOD COUNT 4.66 10^6/uL (4.20-5.40); RED CELL DISTRIBUTION WIDTH 14.9 % (12.0-15.0)
[2019-06-24 09:58] LABS: CALCIUM 8.8 mg/dL (8.5-10.3); CREATININE 0.6 mg/dL (0.4-1.0)
--- NOTE | 2019-06-24 10:59 | CT Report ---
Reason: evaluate for mastoiditis on R side Procedure Date: 06/24/2019 Accession Number: [id number] / [id number] Procedure: CT - MAXILLOFACIAL W CPT Code: Final Report FULL RESULT: EXAM: CT MAXILLOFACIAL WITH CONTRAST EXAM DATE: 06/24/2019 10:20 AM. CLINICAL HISTORY: Right side ear pain. Concern for mastoiditis. COMPARISONS: 05/03/2017. TECHNIQUE: Thin-section axial images were acquired of the face after administration of intravenous contrast. Post-processing: Coronal and sagittal reformats. Other: None. IV contrast: 80 mL IV Optiray 320. In accordance with CT protocol optimization, one or more of the following dose reduction techniques were utilized for this exam: automated exposure control, adjustment of mA and/or KV based on patient size, or use of iterative reconstructive technique. FINDINGS: Clear well-developed well-aerated mastoid air cells bilaterally. No evidence for middle ear cavity opacification. There is amorphous soft tissue density in the external auditory canals bilaterally. This may be amenable to direct clinical inspection. No evidence for external canal bony exostosis or definite focal bone destruction or erosion. No evidence for obstruction or thrombus filling defect of the internal jugular veins or sigmoid sinuses intracranially. Symmetric unremarkable appearance of the orbits. No regional soft tissue abscess. Equivocal findings of increased soft tissue prominence in the region of the right external canal, clinical correlation is suggested. No other focal or acute regional soft tissue abnormality identified. Clear paranasal sinuses. IMPRESSION: 1. No evidence for acute or chronic otomastoiditis or sinusitis. 2. There is a small amount of nonspecific soft tissue density within the external auditory canals. This could represent cerumen. 3. Probable mild soft tissue prominence in the region of the right external canal which may be infectious/inflammatory, no accompanying bone destruction or abscess. The differential could include mild otitis externa. 4. Otherwise unremarkable extracranial soft tissues in the region of the face. RADIA
[2019-06-24 11:24] VITALS: BP 158/138
== END 2019-06-24 11:24 | disposition home or self-care (01) ==
LOC: ED 08:47
DX: H60.91 Unspecified otitis externa, right ear (principal); M54.2 Cervicalgia; I10 Essential (primary) hypertension; F17.200 Nicotine dependence, unspecified, uncomplicated
CPT/HCPCS: 36415; 70487; 80048; 85025; 87275; 87276; 96361; 96374; 99284; Q9967

== ENCOUNTER 2019-08-02 15:42 | Emergency (ER) | payer MEDICAID ==
[2019-08-02 15:52] VITALS: BP 181/115
[2019-08-02] MEDS ORDERED: oxyCODONE 5 MG TABLET PO STA (15:53)
[2019-08-02] MEDS ORDERED: CLINDAMYCIN 150 MG CAPSULE PO STA (15:54)
--- NOTE | 2019-08-02 15:55 | ED Physician Documentation ---
PD HPI SKIN - Stated complaint Stated Complaint: R ARM/NECK BUMPS - Chief complaint Chief Complaint: Wound - History obtained from History obtained from: Patient (For 2 to 3 days she has had multiple skin lesions, the biggest is on the back of her neck but several on the right arm. No fevers or chills. She has a history of staph infection but not MRSA.) Review of Systems Constitutional: denies: Fever, Chills : denies: Now EGA Skin: reports: Lesions. denies: Rash Musculoskeletal: reports: Neck pain. 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: Other : None HEENT: Other Psych: Depression, Anxiety Musculoskeletal: Fibromyalgia Derm: None - Past Surgical History Past Surgical History: Yes /JUSTICE COURT JUDGE: section, Tubal ligation - Present Medications Home Medications: Ambulatory Orders Medication Instructions Recorded Confirmed Enalapril [Vasotec] 10 mg PO DAILY 05/06/16 09/26/18 Sertraline HCl [Zoloft] 100 mg PO DAILY 05/06/16 09/26/18 cloNIDine 0.1 MG PATCH 1 patch TOP TITR 06/18/16 09/26/18 [[id number]-Rci-0] Multivitamin [Theragran] 1 tab PO DAILYWM #30 tablet 05/04/17 09/26/18 Metoprolol Tartrate 100 mg ORAL DAILY 09/23/18 09/26/18 Gabapentin 600 mg PO BID 10/26/18 10/26/18 Meloxicam [Mobic] 15 mg PO DAILY PRN #20 tablet 05/28/19 Methocarbamol [Robaxin-750] 750 mg PO Q8H PRN #14 tablet 05/28/19 Oxycodone HCl/Acetaminophen 1 - 2 each PO Q6H PRN #10 tablet 05/28/19 [Percocet 5-325 mg Tablet] Clotrimazole 3 drops RIGHTEAR TID #1 bottle 06/23/19 Doxycycline Monohydrate 100 mg PO BID #14 tablet 06/23/19 Fluconazole [Diflucan] 150 mg PO ONCE #2 tablet 06/23/19 Hydrocodone/Acetaminophen 1 each PO Q6H PRN #12 tablet 06/23/19 [Hydrocodon-Acetaminophen 5-325] Neomycin/Polymyx/Hc Otic Drops 4 drops OT QID #1 bottle 06/23/19 [Cortisporin Ear Susp] Chlorhexidine Gluconate [Hibiclens] 10 ml TP DAILY #1 bot 08/02/19 Clindamycin HCl [Clindamycin 300MG 300 mg PO Q6H #40 capsule 08/02/19 CAP] Oxycodone HCl/Acetaminophen 1 - 2 each PO Q6H PRN #14 tablet 08/02/19 [Percocet 5-325 mg Tablet] - Allergies Allergies/Adverse Reactions: Allergies Allergy/AdvReac Type Severity Reaction Status Date / Time No Known Drug Allergies Allergy Verified 08/02/19 15:52 - Social History Does the pt smoke?: Yes Smoking Status: Current every day smoker Does the pt drink ETOH?: No Does the pt have substance abuse?: No - Immunizations Immunizations are current?: Yes - POLST Patient has POLST: No POLST Status: Full Code PD ED PE NORMAL - Vitals Vital signs reviewed: Yes - General General: Alert and oriented X 3, No acute distress - Neck Neck: Supple, no meningeal sign, No bony TTP - Extremities Extremities: Other (She has several small skin lesions consistent with staphylococcal infection, the largest is on the back of the neck but still pretty small less than a centimeter.) - Neuro Neuro: Alert and oriented X 3, Normal speech - Psych Psych: Normal mood, Normal affect Results - Vitals Vitals: Vital Signs - 24 hr 08/02/19 15:50 Temperature 37.2 C Heart Rate 121 H Respiratory 16 Rate Blood Pressure 181/115 H O2 Saturation 100 Oxygen O2 Source Room air PD MEDICAL DECISION MAKING - ED course ED course: She has what looks like kind of a disseminated staph skin infection, she is about 5 lesions. The largest was on the back of her neck and after iodine prep and ethyl chloride spray it was needle aspirated to get a culture but did not really get much out but it was sent anyways. Departure - Departure Disposition: 01 Home, Self Care Clinical Impression: Staph infection Condition: Good Record reviewed to determine appropriate education?: Yes Instructions: ED Staph Infec Abx Tx Only Prescriptions: Chlorhexidine Gluconate [Hibiclens] 10 ml TP DAILY #1 bot Clindamycin HCl [Clindamycin 300MG CAP] 300 mg PO Q6H #40 capsule Oxycodone HCl/Acetaminophen [Percocet 5-325 mg Tablet] 1 - 2 each PO Q6H PRN #14 tablet PRN Reason: pain Comments: We are performing a wound culture, the results should be done in 48-72 hours. If antibiotic change is necessary we will call you. Return if worse in the meantime, especially if you develop increased pain, fevers, cannot keep down the medication. Otherwise follow-up with your physician in approximately 2-3 days.
== END 2019-08-02 16:19 | disposition home or self-care (01) ==
LOC: ED 15:42
DX: L08.89 Other specified local infections of the skin and subcutaneous tissue (principal); B95.7 Other staphylococcus as the cause of diseases classified elsewhere; I10 Essential (primary) hypertension; F17.200 Nicotine dependence, unspecified, uncomplicated
CPT/HCPCS: 87070; 87205; 99283; A9270

== ENCOUNTER 2019-08-10 10:00 | Emergency (ER) | payer MEDICAID ==
[2019-08-10 10:28] LABS: BILIRUBIN,URINE NEGATIVE (NEGATIVE); CLARITY,URINE CLEAR (CLEAR); GLUCOSE, URINE (UA) NEGATIVE (NEGATIVE); KETONES,URINE (UA) NEGATIVE (NEGATIVE); LEUKOCYTE ESTERASE, URINE NEGATIVE (NEGATIVE); NITRITE,URINE NEGATIVE (NEGATIVE); OCCULT BLOOD,URINE NEGATIVE (NEGATIVE); PH,URINE 6.5 PH (5.0-7.5); PROTEIN,URINE NEGATIVE (NEGATIVE); UROBILINOGEN,URINE 0.2 (NORMAL) E.U./dL (NORMAL)
[2019-08-10 10:29] LABS: HCG UR QUAL NEGATIVE
[2019-08-10 10:41] LABS: BASOPHILS # (AUTO) 0.1 10^3/uL (0.0-0.1); BASOPHILS % (AUTO) 1.3 %; EOSINOPHILS # (AUTO) 0.2 10^3/uL (0.0-0.7); LYMPHOCYTES # (AUTO) 1.4 10^3/uL (1.5-3.5); LYMPHOCYTES % (AUTO) 27.4 %; MEAN CORPUSCULAR HEMOGLOBIN 26.8 pg (27.0-31.0); MEAN CORPUSCULAR VOLUME 83.7 fL (81.0-99.0); MEAN PLATELET VOLUME 10.2 fL (7.9-10.8); MONOCYTES # (AUTO) 0.4 10^3/uL (0.0-1.0); MONOCYTES % (AUTO) 6.9 %; NEUTROPHILS # (AUTO) 3.1 10^3/uL (1.5-6.6); PLT - PLATELET COUNT 287 10^3/uL (130-450); RED BLOOD COUNT 4.85 10^6/uL (4.20-5.40); RED CELL DISTRIBUTION WIDTH 14.7 % (12.0-15.0); WHITE BLOOD COUNT 5.2 x10^3/uL (4.8-10.8)
--- NOTE | 2019-08-10 10:43 | ED Physician Documentation ---
PD HPI ABD PAIN - Stated complaint Stated Complaint: ABD PX - Chief complaint Chief Complaint: Abd Pain - History obtained from History obtained from: Patient - History of Present Illness Timing - onset: Today Timing - duration: Hours Timing - details: Abrupt onset Pain level now: 7 Quality: Stabbing Location: RLQ Radiation: Lower back Improved by: Position (Feels better if she gets up and moves around) Worsened by: Breathing (Coughing) Associated symptoms: Constipation (No BM for 2 days), Vaginal bleeding (Currently on her menses). No: Fever, Nausea, Vomiting, Dysuria, Hematuria Recently seen: Not recently seen - Additional information Additional information: There is a 28-year-old woman who presents with complaints that she is having abdominal pain in her right lower abdomen that is also radiating to her lower back that she describes as constant stabbing pain at a 7 out of 10. 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 She is been constipated and has not had a bowel movement over the past couple of days and she tried to throw up to see if that would help alleviate the pain but was unsuccessful. She is denies injury. The pain is worse if she coughs. She did not take anything for it before she arrived here. Is radiating a little bit into her groin. She denies any dysuria. She is currently on her menses and does not think she is she is had a bilateral tubal ligation no control. The patient does have a history of ovarian torsion in September of this year and says the pain felt very similar to this. She denies fever or recent upper respiratory symptoms. Review of Systems Constitutional: denies: Fever Nose: denies: Rhinorrhea / runny nose, Congestion Throat: denies: Sore throat Cardiac: denies: Palpitations Respiratory: denies: Dyspnea, Cough GI: reports: Abdominal Pain, Constipation. denies: Nausea, Vomiting, Diarrhea : reports: LMP (Currently). denies: Dysuria, Now EGA Skin: denies: Rash Musculoskeletal: reports: Back pain Neurologic: reports: Other (Radiates to the right perineal region). 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 HEENT: Other Psych: Depression, Anxiety Musculoskeletal: Fibromyalgia Derm: None - Past Surgical History Past Surgical History: Yes /SQL REPORT WRITER: section, Tubal ligation - Present Medications Home Medications: Ambulatory Orders Medication Instructions Recorded Confirmed Enalapril [Vasotec] 10 mg PO DAILY 05/06/16 09/26/18 Sertraline HCl [Zoloft] 100 mg PO DAILY 05/06/16 09/26/18 cloNIDine 0.1 MG PATCH 1 patch TOP TITR 06/18/16 09/26/18 [Faecuufj-Aoa-2] Multivitamin [Theragran] 1 tab PO DAILYWM #30 tablet 05/04/17 09/26/18 Metoprolol Tartrate 100 mg ORAL DAILY 09/23/18 09/26/18 Gabapentin 600 mg PO BID 10/26/18 10/26/18 Meloxicam [Mobic] 15 mg PO DAILY PRN #20 tablet 05/28/19 Methocarbamol [Robaxin-750] 750 mg PO Q8H PRN #14 tablet 05/28/19 Oxycodone HCl/Acetaminophen 1 - 2 each PO Q6H PRN #10 tablet 05/28/19 [Percocet 5-325 mg Tablet] Clotrimazole 3 drops RIGHTEAR TID #1 bottle 06/23/19 Doxycycline Monohydrate 100 mg PO BID #14 tablet 06/23/19 Fluconazole [Diflucan] 150 mg PO ONCE #2 tablet 06/23/19 Hydrocodone/Acetaminophen 1 each PO Q6H PRN #12 tablet 06/23/19 [Hydrocodon-Acetaminophen 5-325] Neomycin/Polymyx/Hc Otic Drops 4 drops OT QID #1 bottle 06/23/19 [Cortisporin Ear Susp] Chlorhexidine Gluconate [Hibiclens] 10 ml TP DAILY #1 bot 08/02/19 Clindamycin HCl [Clindamycin 300MG 300 mg PO Q6H #40 capsule 08/02/19 CAP] Oxycodone HCl/Acetaminophen 1 - 2 each PO Q6H PRN #14 tablet 08/02/19 [Percocet 5-325 mg Tablet] - Allergies Allergies/Adverse Reactions: Allergies Allergy/AdvReac Type Severity Reaction Status Date / Time No Known Drug Allergies Allergy Verified 12/30/19 10:06 - Social History Does the pt smoke?: Yes Smoking Status: Current every day smoker Does the pt drink ETOH?: No Does the pt have substance abuse?: No - Immunizations Immunizations are current?: Yes - POLST Patient has POLST: No POLST Status: Full Code PD ED PE NORMAL - Vitals Vital signs reviewed: Yes - General General: Alert and oriented X 3, No acute distress, Well developed/nourished - HEENT HEENT: Atraumatic, PERRL, EOMI, Moist mucous membranes - Neck Neck: Supple, no meningeal sign, No adenopathy - Cardiac Cardiac: RRR, No murmur, Strong equal pulses - Respiratory Respiratory: No respiratory distress, Clear bilaterally - Abdomen Abdomen: Normal bowel sounds, Soft, Non tender, Other (Voluntary guarding with palpation through the abdomen) - Derm Derm: Normal color, Warm and dry, No rash - Extremities Extremities: No edema - Neuro Neuro: Alert and oriented X 3, No motor deficit, No sensory deficit, Normal speech - Psych Psych: Normal mood, Normal affect Results - Vitals Vitals: Vital Signs - 24 hr 08/10/19 08/10/19 08/10/19 10:07 12:11 14:42 Temperature 36.8 C Heart Rate 102 H 93 69 Respiratory 20 20 16 Rate Blood Pressure 148/94 H 178/113 H 158/125 H O2 Saturation 98 98 99 08/10/19 16:40 Temperature 37.2 C Heart Rate 72 Respiratory 18 Rate Blood Pressure 148/99 H O2 Saturation 98 Oxygen O2 Source Room air - Labs Labs: Laboratory Tests 08/10/19 08/10/19 08/10/19 10:15 10:25 10:25 WBC 5.2 RBC 4.85 Hgb 13.0 Hct 40.6 MCV 83.7 MCH 26.8 L MCHC 32.0 RDW 14.7 Plt Count 287 MPV 10.2 Neut # (Auto) 3.1 Lymph # (Auto) 1.4 L Nelson # (Auto) 0.4 Eos # (Auto) 0.2 Baso # (Auto) 0.1 Absolute Nucleated RBC 0.00 Nucleated RBC % 0.0 Sodium 141 Potassium 4.2 Chloride 106 Carbon Dioxide 25 Anion Gap 10.0 BUN 18 Creatinine 0.7 Estimated GFR (MDRD) 98 Glucose 103 H Calcium 9.2 Total Bilirubin 0.7 AST 23 ALT 26 Alkaline Phosphatase 50 Total Protein 7.3 Albumin 4.5 Globulin 2.8 Albumin/Globulin Ratio 1.6 Lipase 25 Urine Color YELLOW Urine Clarity CLEAR Urine pH 6.5 Ur Specific [place] 1.025 Urine Protein NEGATIVE Urine Glucose (UA) NEGATIVE Urine Ketones NEGATIVE Urine Occult Blood NEGATIVE Urine Nitrite NEGATIVE Urine Bilirubin NEGATIVE Urine Urobilinogen 0.2 (NORMAL) Ur Leukocyte Esterase NEGATIVE Ur Microscopic Review NOT INDICATED Urine Culture Comments NOT INDICATED Urine HCG, Qual NEGATIVE - Rads (name of study) ultrasound pelvis Radiology: See rad report (Ovary normal, no torsion. Appendix not well visualized per tech, no comment by Radiologist) PD MEDICAL DECISION MAKING - ED course Complexity details: reviewed results, re-evaluated patient, d/w patient ED course: Patient had an IV started and was initially given Toradol 30 mg IV. She was crying in pain and requesting more pain medications to the nursing staff and she was medicated with morphine and Zofran. On reevaluation she continued to have some tenderness in the right lower quadrant with a history of ovarian torsion and her concerns I did order an ultrasound. Ultrasound did not show evidence of any torsion. Patient has a normal white blood cell count she is afebrile and although the appendix was not well-visualized on the ultrasound, my suspicion for any acute intra-abdominal process is low and I did not feel further imaging was warranted at this time. Patient encouraged to monitor her pain at home and return if she has fever, vomiting or the pain is increasing and not subsiding. Follow-up with her primary care provider for reevaluation if her symptoms persist. Departure - Departure Disposition: 01 Home, Self Care Clinical Impression: Abdominal pain Qualifiers: Abdominal location: right lower quadrant Qualified Code(s): R10.31 - Right lower quadrant pain Condition: Good Instructions: ED Abdominal Pain Unkn Cause Follow-Up: [facility] [Provider Group] Comments: Follow-up with your primary care provider for evaluation if you continue to have pain. Return if the pain is increasing, you develop a fever or vomiting and cannot keep anything down. Discharge Date/Time: 08/10/19 17:56
[2019-08-10 10:46] LABS: ALBUMIN 4.5 g/dL (3.2-5.5); ALBUMIN/GLOBULIN RATIO 1.6 (1.0-2.2); BILIRUBIN,TOTAL 0.7 mg/dL (0.2-1.0); CALCIUM 9.2 mg/dL (8.5-10.3); CREATININE 0.7 mg/dL (0.4-1.0); TOTAL PROTEIN 7.3 g/dL (6.7-8.2)
[2019-08-10] MEDS ORDERED: SODIUM CHLORIDE 0.9% 1,000 ML IV ONE (11:24)
[2019-08-10] MEDS ORDERED: KETOROLAC 30 MG/ML VIAL IVP STA (11:24)
[2019-08-10] MEDS ORDERED: MORPHINE 2 MG/ML CARPUJECT IVP STA (12:16)
[2019-08-10] MEDS ORDERED: ONDANSETRON 4 MG/2 ML VIAL IVP STA (12:16)
--- NOTE | 2019-08-10 15:50 | Ultrasound Report ---
Reason: RLQ pain Procedure Date: 08/10/2019 Accession Number: [id number] / [id number] Procedure: US - Pelvic w/Transvag+Doppler Comp CPT Code: Final Report FULL RESULT: EXAM: PELVIC ULTRASOUND WITH DOPPLERS CLINICAL HISTORY: RLQ pain. Right lower quadrant pain. COMPARISON: PEL NON OB W/TV DOP 10/26/2018 1:02 PM TECHNIQUE: Realtime transabdominal imaging performed to identify the uterus and adnexa and as an overview of other pelvic structures, followed by transvaginal imaging for better assessment of the endometrium and adnexa, with static image documentation. Color flow imaging and Doppler spectral analysis was performed to evaluate blood flow to the ovaries given pelvic pain. FINDINGS: Uterus: 8.1 x 2.4 x 4.2 cm, volume 60.5 cc. Anteverted position. Normal overall size and echotexture. Masses: None. Endometrium: 4.6 mm. Normal. Cervix: Unremarkable. Right Ovary: 3.5 x 1.8 x 2 cm, volume 6.6 cc. Normal echotexture. Arterial and venous blood flow are present. PSV 12.4 cm/sec. RI 0.52. Adnexa are unremarkable. Left Ovary: 2.6 x 1.5 x 2 cm, volume 4.1 cc. Normal echotexture. Arterial and venous blood flow are present. PSV 13.1 cm/sec. RI 0.53. Adnexa are unremarkable. Free Fluid: None. IMPRESSION: 1. Normal pelvic ultrasound. 2. Arterial and venous blood flow are present to the ovaries bilaterally. RADIA
[2019-08-10 16:42] VITALS: BP 148/99
== END 2019-08-10 17:56 | disposition home or self-care (01) ==
LOC: ED 10:00
DX: R10.31 Right lower quadrant pain (principal); M54.5 Low back pain; I10 Essential (primary) hypertension; Z87.19 Personal history of other diseases of the digestive system; F17.200 Nicotine dependence, unspecified, uncomplicated
CPT/HCPCS: 36415; 76830; 76856; 80053; 81001; 81003; 81025; 83690; 85025; 87086; 93975; 96361; 96374; 96375; 99284

== ENCOUNTER 2019-11-08 18:55 | Emergency (ER) | payer MEDICAID ==
[2019-11-08 19:03] VITALS: BP 184/117
[2019-11-08] MEDS ORDERED: predniSONE 20 MG TABLET PO STA (19:14)
[2019-11-08] MEDS ORDERED: oxyCODONE/ACET 5/325 Prepack 4 PO STA (19:14)
--- NOTE | 2019-11-08 19:20 | ED Physician Documentation ---
PD HPI BACK PAIN - Stated complaint Stated Complaint: LT SIDE LOWER BACK / LEG PX - Chief complaint Chief Complaint: Back Pain - History obtained from History obtained from: Patient - History of Present Illness Timing - onset: How many weeks ago (1) Timing - duration: Weeks (1) Timing - details: Gradual onset Pain level max: 8 Pain level now: 8 Location: Lower, Left Quality: Pain, Spasm, Similar to prior episodes Associated symptoms: No: Fever, Weakness, Numbness, Incontinent of urine, Unable to urinate, Hematuria, Incontinent of stool Improves with: Rest Worsened by: Movement Contributing factors: Lifting, Twisting Similar symptoms before: Diagnosis (sciatica) - Additional information Additional information: states working for the last 13 days. and her sciatica is worsening. 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 HEENT: Other Psych: Depression, Anxiety Musculoskeletal: Fibromyalgia Derm: None - Past Surgical History Past Surgical History: Yes /CUSHION MAKER: section, Tubal ligation - Present Medications Home Medications: Ambulatory Orders Medication Instructions Recorded Confirmed Enalapril [Vasotec] 10 mg PO DAILY 05/06/16 11/08/19 Metoprolol Tartrate 100 mg ORAL DAILY 09/23/18 11/08/19 Oxycodone HCl/Acetaminophen 1 - 2 each PO Q6H PRN #14 tablet 11/08/19 [Percocet 5-325 mg Tablet] predniSONE [Deltasone] 10 mg PO [id number] #42 tab 11/08/19 - Allergies Allergies/Adverse Reactions: Allergies Allergy/AdvReac Type Severity Reaction Status Date / Time No Known Drug Allergies Allergy Verified 11/08/19 18:58 - Social History Does the pt smoke?: Yes Smoking Status: Current every day smoker Does the pt drink ETOH?: No Does the pt have substance abuse?: No - Immunizations Immunizations are current?: Yes - POLST Patient has POLST: No POLST Status: Full Code PD ED PE NORMAL - Vitals Vital signs reviewed: Yes - General General: Alert and oriented X 3, No acute distress - HEENT HEENT: Moist mucous membranes - Neck Neck: Supple, no meningeal sign - Back Back: No spinal TTP, Other (left lumbar paraspinal spasm. no midline tenderness. no step off or deformity. ) - Derm Derm: Warm and dry - Neuro Neuro: Alert and oriented X 3, No motor deficit, No sensory deficit, Other (Normal bilateral lower extremity patellar and ankle jerk reflexes. Normal great toe extension bilaterally. no saddle anesthesia) - Psych Psych: Normal mood, Normal affect Results - Vitals Vitals: Vital Signs - 24 hr 11/08/19 19:01 Temperature 36.8 C Heart Rate 94 Respiratory 18 Rate Blood Pressure 184/117 H O2 Saturation 99 Oxygen O2 Source Room air PD MEDICAL DECISION MAKING - ED course Complexity details: considered differential (No cauda equina, no spinal epidural abscess, no fracture, no aortic dissection or evidence of aneursym rupture), d/w patient ED course: Patient with what appears to be sciatica. This is an ongoing issue for her. Will prescribe pain medication for home. No evidence of cauda equina, epidural abscess. Patient counseled regarding signs and symptoms for which I believe and urgent re-evaluation would be necessary. Patient with good understanding of and agreement to plan and is comfortable going home at this time This document was made in part using voice recognition software. While efforts are made to proofread this document, sound alike and grammatical errors may occur. Departure - Departure Disposition: 01 Home, Self Care Clinical Impression: Sciatica Qualifiers: Laterality: left Qualified Code(s): M54.32 - Sciatica, left side Condition: Good Instructions: ED Sciatica Follow-Up: your,doctor in 1 week [Other] Prescriptions: Oxycodone HCl/Acetaminophen [Percocet 5-325 mg Tablet] 1 - 2 each PO Q6H PRN #14 tablet PRN Reason: pain predniSONE [Deltasone] 10 mg PO [id number] #42 tab Comments: Use the medications as prescribed. Return if you worsen. Follow-up with your doctor for further care. Do not drink alcohol or drive while on narcotic pain medicine. Note that many narcotic pain relievers also contain tylenol/acetaminophen. Please ensure that your total dose of acetaminophen from all sources does not exceed 3 grams (3000mg) per day. You may constipated on this medication, take a stool softener such as "Colace" twice a day while you are on it. Also recommend a [id number] laxative such as senna or MiraLAX any day that you do not have a bowel movement. If you received narcotic pain medication in the emergency department, do not drive or operate machinery for the next 24 hours. Discharge Date/Time: 11/08/19 19:21
== END 2019-11-08 19:21 | disposition home or self-care (01) ==
LOC: ED 18:55
DX: M54.32 Sciatica, left side (principal); I10 Essential (primary) hypertension; F17.200 Nicotine dependence, unspecified, uncomplicated
CPT/HCPCS: 99282; 99284; J7512

== ENCOUNTER 2020-01-12 09:53 | Emergency (ER) | payer MEDICAID ==
--- NOTE | 2020-01-12 10:07 | ED Physician Documentation ---
PD HPI OPHTHO - Stated complaint Stated Complaint: R EYE IRRITATION - Chief complaint Chief Complaint: Heent - History obtained from History obtained from: Patient - History of Present Illness Timing - onset: How many hours ago (2-3) Timing - duration: Hours Timing - details: Abrupt onset, Still present Location: Right Quality / character: Aching Associated symptoms: Redness, Discharge, FB sensation. No: Matting, Photophobia Contributing factors: Other (onset at work. No noted chemical exposures,etc Symptoms just in right eye.). No: Exposed to conjunctivitis, Recent URI, FB, Wears contacts Similar symptoms before: Has not had sx before Review of Systems Constitutional: denies: Fever, Chills Eyes: reports: Discharge, Irritation. 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 HEENT: Other Psych: Depression, Anxiety Musculoskeletal: Fibromyalgia Derm: None - Past Surgical History Past Surgical History: Yes /PUBLIC RELATIONS DIRECTOR: section, Tubal ligation - Present Medications Home Medications: Ambulatory Orders Medication Instructions Recorded Confirmed Enalapril [Vasotec] 10 mg PO DAILY 05/06/16 11/08/19 Metoprolol Tartrate 100 mg ORAL DAILY 09/23/18 11/08/19 Oxycodone HCl/Acetaminophen 1 - 2 each PO Q6H PRN #14 tablet 11/08/19 [Percocet 5-325 mg Tablet] predniSONE [Deltasone] 10 mg PO [id number] #42 tab 11/08/19 Hydrocodone/Acetaminophen 1 each PO Q6H PRN #10 tablet 01/12/20 [Hydrocodon-Acetaminophen 5-325] Ketorolac 0.45% Ophth Drops 2 drops RIGHTEYE TID #1 bottle 01/12/20 [Acuvail] Sulfacetamide Sodium 3 drops RIGHTEYE QID 5 Days #1 01/12/20 bottle - Allergies Allergies/Adverse Reactions: Allergies Allergy/AdvReac Type Severity Reaction Status Date / Time No Known Drug Allergies Allergy Verified 01/12/20 09:57 - Social History Does the pt smoke?: Yes Smoking Status: Current every day smoker Does the pt drink ETOH?: No Does the pt have substance abuse?: No - Immunizations Immunizations are current?: Yes - POLST Patient has POLST: No POLST Status: Full Code PD ED PE NORMAL - Vitals Vital signs reviewed: Yes - General General: Alert and oriented X 3, No acute distress, Well developed/nourished - HEENT HEENT: PERRL, EOMI, Ears normal, Pharynx benign, Other (right eye with conjunctival redness and some matting at lid margins. Left eye normal. No FB seen. ) - Neck Neck: Supple, no meningeal sign, No adenopathy PD ED PE EXPANDED - Eyes Eyes: Anterior chambers clear, Normal fundi. No: Eyelid swelling, Eyelid erythema, Conj/sclera FB, Fluorescein uptake Results - Vitals Vitals: Vital Signs - 24 hr 01/12/20 01/12/20 09:57 10:51 Temperature 36.7 C 36.1 C L Heart Rate 92 86 Respiratory 16 16 Rate Blood Pressure 166/113 H 148/78 H O2 Saturation 99 99 Oxygen O2 Source Room air PD MEDICAL DECISION MAKING - ED course Complexity details: re-evaluated patient (feels better with proparacaine.), considered differential (abrupt onset of eye redness and discharge, but no chemical exposures/etc so presume infectious. ), d/w patient Departure - Departure Disposition: 01 Home, Self Care Clinical Impression: Acute conjunctivitis of right eye Qualifiers: Acute conjunctivitis type: unspecified Qualified Code(s): H10.31 - Unspecified acute conjunctivitis, right eye Condition: Stable Record reviewed to determine appropriate education?: Yes Instructions: ED Conjunctivitis Bacterial Prescriptions: Hydrocodone/Acetaminophen [Hydrocodon-Acetaminophen 5-325] 1 each PO Q6H PRN #10 tablet PRN Reason: pain Ketorolac 0.45% Ophth Drops [Acuvail] 2 drops RIGHTEYE TID #1 bottle Sulfacetamide Sodium 3 drops RIGHTEYE QID 5 Days #1 bottle Comments: Ibuprofen or naproxen 2-3 times a day and add Tylenol as needed every 4-6 hours. Add hydrocodone if needed for worse pain. Use the ketorolac anti-inflammatory and sulfa antibiotic eyedrops as directed over the next several days. Recheck if not improving well over the next 1 to 2 days and return if worsening. Otherwise follow-up with I specialist if not completely resolved over the next couple of days. Forms: Activity restrictions Discharge Date/Time: 01/12/20 10:53
[2020-01-12] MEDS ORDERED: ERYTHROMYCIN OPHTH OINT 1 GM TUBE RIGHTEYE STA (10:27)
[2020-01-12 10:53] VITALS: BP 148/78
== END 2020-01-12 10:53 | disposition home or self-care (01) ==
LOC: ED 09:53
DX: H10.31 Unspecified acute conjunctivitis, right eye (principal); I10 Essential (primary) hypertension; F17.200 Nicotine dependence, unspecified, uncomplicated
CPT/HCPCS: 99283; J3490

== ENCOUNTER 2020-04-24 18:03 | Emergency (ER) | payer MEDICAID ==
[2020-04-24 18:28] VITALS: BP 142/104
--- NOTE | 2020-04-24 18:36 | ED Physician Documentation ---
PD HPI LOWER EXT INJURY - Stated complaint Stated Complaint: LEG PAIN - Chief complaint Chief Complaint: Ext Problem - History obtained from History obtained from: Patient - Additional information Additional information: Without specific injury she woke today with a very specific point pain of the right knee. She points to about 2 cm distal to the tibial plateau and 2 cm medial to the Midline as the site of pain. It hurts with bending and straightening the knee. She is most comfortable in a slightly flexed position. She is never had this before. 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 : None HEENT: Other Psych: Depression, Anxiety Musculoskeletal: Fibromyalgia Derm: None - Past Surgical History Past Surgical History: Yes /HEEL SPLITTER: section, Tubal ligation - Present Medications Home Medications: Ambulatory Orders Medication Instructions Recorded Confirmed Enalapril [Vasotec] 10 mg PO DAILY 05/06/16 04/24/20 Hydrocodone/Acetaminophen 1 - 2 tab PO Q6H PRN #10 tablet 04/24/20 [Hydrocodone-Acetamin 5-325 mg] Metoprolol Succinate 100 mg PO BID 04/24/20 04/24/20 cloNIDine [Catapres] 0.1 mg PO BID 04/24/20 04/24/20 - Allergies Allergies/Adverse Reactions: Allergies Allergy/AdvReac Type Severity Reaction Status Date / Time No Known Drug Allergies Allergy Verified 04/24/20 18:11 - Social History Does the pt smoke?: Yes Smoking Status: Current every day smoker Does the pt drink ETOH?: Yes Does the pt have substance abuse?: No - Immunizations Immunizations are current?: Yes - POLST Patient has POLST: No POLST Status: Full Code PD ED PE NORMAL - Vitals Vital signs reviewed: Yes - General General: Alert and oriented X 3, No acute distress - Extremities Extremities: Other (There is focal tenderness in the area she describes, just inferomedial to the actual knee. Bedside ultrasound of the area shows no abnormality. There is a vein there but it is easily compressible. No redness or cyst warmth. The knee itself is nontender without effusion. No pain with ligamentous) - Neuro Neuro: Alert and oriented X 3, Normal speech - Psych Psych: Normal mood, Normal affect Results - Vitals Vitals: Vital Signs - 24 hr 04/24/20 04/24/20 18:12 18:26 Temperature 36.9 C 36.8 C Heart Rate 94 81 Respiratory 16 16 Rate Blood Pressure 132/68 H 142/104 H O2 Saturation 98 98 Oxygen O2 Source Room air - Rads (name of study) 4v XR R knee Radiology: EMP read contemporaneously (NAD) Departure - Departure Disposition: 01 Home, Self Care Condition: Good Record reviewed to determine appropriate education?: Yes Instructions: ED Knee Pain [facility] Prescriptions: Hydrocodone/Acetaminophen [Hydrocodone-Acetamin 5-325 mg] 1 - 2 tab PO Q6H PRN #10 tablet PRN Reason: Pain Comments: IbuProfen as the base for the pain for the inflammation, wear the splint as needed but you do not need to wear it in bed or showering etc. Return for new or worsening symptoms. Follow-up with your doctor in a week if not better. Discharge Date/Time: 04/24/20 19:36
[2020-04-24] MEDS ORDERED: HYDROcod/ACET 5/325 Prepack 4 PO STA (19:12)
--- NOTE | 2020-04-24 19:36 | XRAY Report ---
PROCEDURE: Knee 4 View RT INDICATIONS: knee pain TECHNIQUE: 4 views of the right knee(s) were acquired. COMPARISON: None. FINDINGS: Bones: No fractures or dislocations. No suspicious bony lesions. Soft tissues: No joint effusion. No suspicious soft tissue calcifications. IMPRESSION: Normal right knee. Reviewed by: Nancy Dennison MD on 04/24/2020 7:35 PM PDT Approved by: Nancy Dennison MD on 04/24/2020 7:35 PM PDT Station ID: [id number]
== END 2020-04-24 19:36 | disposition home or self-care (01) ==
LOC: ED 18:03
DX: M25.561 Pain in right knee (principal); I10 Essential (primary) hypertension; F17.200 Nicotine dependence, unspecified, uncomplicated
CPT/HCPCS: 99283

== ENCOUNTER 2020-08-08 15:14 | Emergency (ER) | payer MEDICAID ==
[2020-08-08] MEDS ORDERED: NEOMYCIN/POLYMYX/HC OTIC DROPS RIGHTEAR STA (15:39)
[2020-08-08 15:49] VITALS: BP 146/115
--- NOTE | 2020-08-08 16:05 | ED Physician Documentation ---
PD HPI HEENT - Stated complaint Stated Complaint: RT EAR PX - Chief complaint Chief Complaint: Heent - History obtained from History obtained from: Patient - History of Present Illness Timing - onset: Last night Timing - duration: Hours Timing - details: Abrupt onset, Still present Location: Right ear Improves: Medication Worsens: Swalllowing Associated symptoms: Facial swelling, Headache. No: Fever, Congestion, Rhinorrhea, Trismus, Unable to swallow, Swollen nodes, Cough Similar symptoms before: Diagnosis (OE) Recently seen: Not recently seen - Additional information Additional information: 29-year-old female has a history of otitis externa and otitis media has developed pain in the right ear similar to what she has had with otitis externa previously. She has started treatment on this but it has not responded and she has come to the emergency department for evaluation. She has pain to the whole side of her face and has pain when she swallows. She does not have a cough or fever. 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 HEENT: Other Psych: Depression, Anxiety Musculoskeletal: Fibromyalgia Derm: None - Past Surgical History Past Surgical History: Yes /SOFTWARE VALIDATION ENGINEER: section, Tubal ligation - Present Medications Home Medications: Ambulatory Orders Medication Instructions Recorded Confirmed Enalapril [Vasotec] 10 mg PO DAILY 05/06/16 08/08/20 Metoprolol Succinate 100 mg PO BID 04/24/20 08/08/20 cloNIDine [Catapres] 0.1 mg PO BID 04/24/20 08/08/20 Hydrocodone/Acetaminophen [[place] 1 - 2 each PO Q6HR PRN #14 tablet 08/08/20 5-325 Tablet] Neomycin/Polymyx/Hc Otic Drops 4 drops RIGHTEAR TID #1 bottle 08/08/20 [Cortisporin Ear Susp] - Allergies Allergies/Adverse Reactions: Allergies Allergy/AdvReac Type Severity Reaction Status Date / Time No Known Drug Allergies Allergy Verified 08/08/20 15:24 - Social History Does the pt smoke?: Yes Smoking Status: Current every day smoker Does the pt drink ETOH?: No Does the pt have substance abuse?: No - Immunizations Immunizations are current?: Yes - POLST Patient has POLST: No POLST Status: Full Code PD ED PE NORMAL - Vitals Vital signs reviewed: Yes (hypertensive ) - General General: Alert and oriented X 3, No acute distress, Well developed/nourished - HEENT HEENT: Atraumatic, PERRL, EOMI, Other (There is lichenification to the ear canal with tenderness, swelling and erythema as well. There is pain to push on the pinna and pull on the tragus. TM not visible. ) - Neck Neck: Supple, no meningeal sign, No bony TTP - Cardiac Cardiac: RRR, No murmur - Respiratory Respiratory: No respiratory distress, Clear bilaterally - Derm Derm: Normal color, Warm and dry, No rash - Extremities Extremities: No deformity, No edema - Neuro Neuro: Alert and oriented X 3, restaurant operations manager 2-12 intact, No motor deficit, No sensory deficit, Normal speech Eye Opening: Spontaneous Motor: Obeys Commands Verbal: Oriented GCS Score: 15 - Psych Psych: Normal mood, Normal affect Results - Vitals Vitals: Vital Signs - 24 hr 08/08/20 08/08/20 15:18 15:49 Temperature 36.7 C 37 C Heart Rate 91 82 Respiratory 18 16 Rate Blood Pressure 170/101 H 146/115 H O2 Saturation 99 98 Oxygen O2 Source Room air PD MEDICAL DECISION MAKING - ED course Complexity details: reviewed old records, considered differential, d/w patient ED course: 29-year-old female with otitis externa has swelling to the canal significant enough to place a Barcenas ear wick the ear wick is placed and 4 drops of Cortisporin otic solution are applied. Departure - Departure Disposition: 01 Home, Self Care Clinical Impression: Otitis externa Qualifiers: Otitis externa type: unspecified type Chronicity: acute Laterality: right Qualified Code(s): H60.501 - Unspecified acute noninfective otitis externa, right ear Condition: Stable Instructions: ED Otitis Externa Follow-Up: [facility] [Provider Group] Prescriptions: Hydrocodone/Acetaminophen [[place] 5-325 Tablet] 1 - 2 each PO Q6HR PRN #14 tablet PRN Reason: Pain Neomycin/Polymyx/Hc Otic Drops [Cortisporin Ear Susp] 4 drops RIGHTEAR TID #1 bottle
== END 2020-08-08 16:27 | disposition home or self-care (01) ==
LOC: ED 15:14
DX: H60.501 Unspecified acute noninfective otitis externa, right ear (principal); I10 Essential (primary) hypertension; F17.200 Nicotine dependence, unspecified, uncomplicated
CPT/HCPCS: 99282; 99284; A9270

== ENCOUNTER 2020-10-25 17:17 | Emergency (ER) | payer MEDICAID ==
[2020-10-25 17:22] VITALS: BP 172/110
--- NOTE | 2020-10-25 17:33 | ED Physician Documentation ---
History of Present Illness - Stated complaint Stated Complaint: RT JAW & EAR RED/PX - Chief complaint Chief Complaint: Heent - History obtained from History obtained from: Patient - Additonal information Additional information: For unclear reasons she has recurrent otitis externa. Dozier like it got bad last night especially in the right ear with a painful preauricular lymph node on the right and now the redness and swelling to the pinna. No mastoid pain. No fevers. No possibility of . 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: section, Tubal ligation - Present Medications Home Medications: Ambulatory Orders Medication Instructions Recorded Confirmed Neomycin/Polymyx/Hc Otic Drops 4 drops RIGHTEAR TID #1 bottle 08/08/20 10/25/20 [Cortisporin Ear Susp] Ciprofloxacin HCl [Cipro] 500 mg PO BID #20 tablet 10/25/20 Enalapril [Vasotec] 3 tab PO DAILY #180 tablet 10/25/20 Metoprolol Succinate [Toprol Xl] 50 mg PO BID #120 tablet 10/25/20 Neomycin/Polymyx/Hc Otic Drops 4 drops OT TID #1 bottle 10/25/20 [Cortisporin Ear Susp] Oxycodone HCl/Acetaminophen 1 - 2 each PO Q6H PRN #14 tablet 10/25/20 [Percocet 5-325 mg Tablet] - Allergies Allergies/Adverse Reactions: Allergies Allergy/AdvReac Type Severity Reaction Status Date / Time No Known Drug Allergies Allergy Verified 10/25/20 17:20 - Social History Does the pt smoke?: Yes Smoking Status: Current every day smoker Does the pt drink ETOH?: No Does the pt have substance abuse?: No - Immunizations Immunizations are current?: Yes - POLST Patient has POLST: No POLST Status: Full Code PD ED PE NORMAL - Vitals Vital signs reviewed: Yes - General General: Alert and oriented X 3, No acute distress - HEENT HEENT: PERRL, EOMI, Other (Scaly skin inside the right ear canal, she has otitis externa with redness that is spreading to the pinna and a tender preauricular lymph node.) - Neck Neck: Supple, no meningeal sign, No bony TTP - Neuro Neuro: Alert and oriented X 3, Normal speech - Psych Psych: Normal mood, Normal affect Results - Vitals Vitals: Vital Signs - 24 hr 10/25/20 17:20 Temperature 36.3 C L Heart Rate 94 Respiratory 18 Rate Blood Pressure 172/110 H O2 Saturation 99 Oxygen O2 Source Room air PD MEDICAL DECISION MAKING - ED course ED course: Given the extension to the pinna this should be treated with oral antibiotics especially since she is already tried topicals for a day without improvement. Departure - Departure Disposition: 01 Home, Self Care Clinical Impression: Perichondritis Hypertension Qualifiers: Hypertension type: essential hypertension Qualified Code(s): I10 - Essential (primary) hypertension Condition: Good Record reviewed to determine appropriate education?: Yes Instructions: ED Otitis Externa Follow-Up: [facility] [Provider Group] Prescriptions: Ciprofloxacin HCl [Cipro] 500 mg PO BID #20 tablet Neomycin/Polymyx/Hc Otic Drops [Cortisporin Ear Susp] 4 drops OT TID #1 bottle Oxycodone HCl/Acetaminophen [Percocet 5-325 mg Tablet] 1 - 2 each PO Q6H PRN #14 tablet PRN Reason: pain Metoprolol Succinate [Toprol Xl] 50 mg PO BID #120 tablet Enalapril [Vasotec] 3 tab PO DAILY #180 tablet Comments: Follow-up with your primary care physician, also consider dermatology referral for consideration of something like psoriasis. Return for new or worsening symptoms.
== END 2020-10-25 17:43 | disposition home or self-care (01) ==
LOC: ED 17:17
DX: H61.001 Unspecified perichondritis of right external ear (principal); I10 Essential (primary) hypertension; F17.200 Nicotine dependence, unspecified, uncomplicated
CPT/HCPCS: 99283; 99284

== ENCOUNTER 2021-04-14 23:09 | Emergency (ER) | payer MEDICAID ==
--- NOTE | 2021-04-14 23:17 | ED Physician Documentation ---
History of Present Illness - Stated complaint Stated Complaint: L ANKLE PX - History obtained from History obtained from: Patient - History of Present Illness Timing: Enter time (20:30), Today Pain level now: 6 Improved by: rest Worsened by: movement, palpation, weight-bearing - Additonal information Additional information: tripped and fell at home tonight when walking up stairs at approximately 8:30 PM, sustaining twisting injury to left ankle and foot, c/o left ankle and foot pain Review of Systems Musculoskeletal: reports: Extremity pain, Joint pain, Pain with weight bearing Neurologic: denies: Focal weakness, Numbness PD PAST MEDICAL HISTORY - Past Medical History Cardiovascular: Hypertension Respiratory: Asthma Neuro: Migraines Endocrine/Autoimmune: None GI: C.difficile 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 HEENT: Other Psych: Depression, Anxiety Musculoskeletal: Fibromyalgia Derm: None - Past Surgical History Past Surgical History: Yes /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 SERVICE 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: section, Tubal ligation - Present Medications Home Medications: Ambulatory Orders Medication Instructions Recorded Confirmed Enalapril [Vasotec] 3 tab PO DAILY #180 tablet 10/25/20 04/14/21 Metoprolol Succinate [Toprol Xl] 50 mg PO BID #120 tablet 10/25/20 04/14/21 Oxycodone HCl/Acetaminophen 1 - 2 each PO Q6H PRN #10 tablet 04/15/21 [Percocet 5-325 mg Tablet] - Allergies Allergies/Adverse Reactions: Allergies Allergy/AdvReac Type Severity Reaction Status Date / Time No Known Drug Allergies Allergy Verified 04/14/21 23:21 - Social History Does the pt smoke?: Yes Smoking Status: Current every day smoker Does the pt drink ETOH?: No Does the pt have substance abuse?: No - Immunizations Immunizations are current?: Yes - POLST Patient has POLST: No POLST Status: Full Code PD ED PE NORMAL - Vitals Vital signs reviewed: Yes - General General: Alert and oriented X 3, No acute distress, Well developed/nourished - Extremities Extremities: No deformity - Neuro Neuro: No motor deficit, No sensory deficit PD ED PE EXPANDED - Extremities Extremities: Tenderness (left ankle (medial and lateral malleoli), left midfoot predominantly dorsal surface), Limited ROM (left ankle, foot), Bruising (left midfoot, dorsal surface) Results - Vitals Vitals: Vital Signs - 24 hr 04/14/21 04/15/21 04/15/21 23:17 00:15 00:36 Temperature 36.6 C Heart Rate 92 Respiratory 16 15 16 Rate Blood Pressure 161/93 H O2 Saturation 100 04/15/21 04/15/21 00:47 01:25 Temperature Heart Rate Respiratory 16 16 Rate Blood Pressure O2 Saturation Oxygen O2 Source Room air - Rads (name of study) left foot xrays Radiology: Prelim report reviewed, See rad report left ankle xrays Radiology: Prelim report reviewed, See rad report PD MEDICAL DECISION MAKING - ED course Complexity details: reviewed results, re-evaluated patient, considered differential, d/w patient ED course: presents after fall and twisting injury to left ankle and foot with bruising, swelling, and tenderness on exam but no acute findings on xrays. Will treat with splint and crutches to minimize weight-bearing until improved. I am prescribing a short course of short-acting opioid pain medication for this patient. 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 I have discussed that the opioids are for short term therapy only, and will not be refilled from the ED. Departure - Departure Disposition: 01 Home, Self Care Clinical Impression: Left ankle sprain Qualifiers: Encounter type: initial encounter Involved ligament of ankle: unspecified ligament Qualified Code(s): S93.402A - Sprain of unspecified ligament of left ankle, initial encounter Condition: Good Instructions: ED Sprain Ankle W X Ray, ED Crutch Walking, ED Sprain Foot Prescriptions: Oxycodone HCl/Acetaminophen [Percocet 5-325 mg Tablet] 1 - 2 each PO Q6H PRN #10 tablet PRN Reason: pain Comments: Follow up with your primary care provider in 3-5 days if not improving. I am prescribing a short course of narcotic pain medication for you. These are potentially dangerous and addictive medications that should be used carefully. These medications may constipate you. Take an [id number] stool softener (docusate) twice daily with plenty of water while taking these medications. If you go 24 hours without a bowel movement, take [id number] miralax, per package instructions. Do not drink or drive while taking these medications. If you received narcotic or sedating medications while in the emergency department, do not drive for 24 hours. Store this medication in a safe, secure place and out of reach of children. It is a violation of federal law to give or sell this medication to another person or to use in a manner other than prescribed. The ED will not refill narcotic prescriptions, including prescriptions lost or stolen. To dispose of unwanted medications: 1. [facility] at [address] in [place] has a medication drop box. They accept prescription medications (in pill form) Saturday through Saturday 9:00 a.m. to 5:00 p.m. 2. The [facility] [employer] accepts prescription medications (in pill form only) for disposal year round. Call for more information. 3. Contact the [facility] for the next [facility] sponsored prescription drug collection event. , [phone], or [phone]; Forms: Activity restrictions Discharge Date/Time: 04/15/21 01:26
[2021-04-14 23:21] VITALS: BP 161/93
[2021-04-15] MEDS ORDERED: oxyCODONE 5 MG TABLET PO STA (00:54)
--- NOTE | 2021-04-15 08:08 | XRAY Report ---
PROCEDURE: Ankle 3 View LT INDICATIONS: trip, injury, tenderness TECHNIQUE: 3 views of the ankle were acquired. COMPARISON: Correlation is made with the accompanying foot plain films, 04/14/2021 FINDINGS: Bones: No fractures or dislocations. Ankle mortise is normally aligned. No suspicious bony lesions . The talar dome demonstrates an unremarkable appearance. Soft tissues: No tibiotalar joint effusion. Achilles tendon appears normal. IMPRESSION: Normal. Note: No significant discrepancy from the preliminary report. Reviewed by: Shade Muñoz MD on 04/15/2021 7:06 AM EMMIE Approved by: Shade Muñoz MD on 04/15/2021 7:06 AM EMMIE Station ID: [id number]
--- NOTE | 2021-04-15 08:09 | XRAY Report ---
PROCEDURE: Foot 3 View LT INDICATIONS: trip, pain,tenderness TECHNIQUE: 3 views of the foot were acquired. COMPARISON: Correlation is made with the accompanying ankle plain films, 04/14/2021 FINDINGS: Bones: No fractures or dislocations. No suspicious bony lesions. Incidental note is made of an acc essory ossicle, an os peroneum. Soft tissues: Mild soft tissue swelling can be seen involving the forefoot. No tibiotalar joint effu sloane. Achilles tendon appears normal. IMPRESSION: Negative for fracture. Note: No significant discrepancy from the preliminary report. Reviewed by: Shade Muñoz MD on 04/15/2021 7:07 AM EMMIE Approved by: Shade Muñoz MD on 04/15/2021 7:07 AM EMMIE Station ID: [id number]
== END 2021-04-15 01:26 | disposition home or self-care (01) ==
LOC: ED 23:09
DX: S93.402A Sprain of unspecified ligament of left ankle, initial encounter (principal); X50.1XXA Overexertion from prolonged static or awkward postures, initial encounter; Y93.01 Activity, walking, marching and hiking; I10 Essential (primary) hypertension; F17.200 Nicotine dependence, unspecified, uncomplicated
CPT/HCPCS: 73610; 73630; 99283; A9270

== ENCOUNTER 2021-05-31 11:44 | Emergency (ER) | payer MEDICAID ==
[2021-05-31 11:56] VITALS: BP 186/135
--- NOTE | 2021-05-31 14:16 | ED Physician Documentation ---
PD HPI HEADACHE - Stated complaint Stated Complaint: HEAD PX - Chief complaint Chief Complaint: Neuro - History obtained from History obtained from: Patient - History of Present Illness Timing - onset: Today Timing - onset during: Light activity (She was at work and developed onset of right posterior neck pain to headache. She states it feels similar to headaches she has had episodically in the past with diagnosis of possible cluster headaches. No focal weaknesses or confusion.) Timing - duration: Hours Timing - details: Abrupt onset, Still present Worst headache ever?: No: Worst headache ever? (simlar to prior headaches in the same area. Occur few times per year. Prior workup with rheum and neurology with Dx of occipital neuralgia or cluster/atypical migraines.) Location: Back, Right Quality: Stabbing Associated symptoms: No: Fever, Stiff neck, Nausea, Weakness, Numbness Improved by: No: Rest Worsened by: No: Light, Noise Contributing factors: No: Recent illness, Trauma Similar symptoms before: Diagnosis (see above) Recently seen: Not recently seen Review of Systems Constitutional: denies: Fever, Chills Eyes: denies: Loss of vision, Photophobia Ears: denies: Ear pain Nose: denies: Rhinorrhea / runny nose, Congestion Throat: denies: Sore throat Respiratory: denies: Cough Skin: denies: Rash, Lesions Neurologic: reports: Headache. 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 HEENT: Other Psych: Depression, Anxiety Musculoskeletal: Fibromyalgia Derm: None - Past Surgical History Past Surgical History: Yes /PRINTER TECHNICIAN: section, Tubal ligation - Present Medications Home Medications: Ambulatory Orders Medication Instructions Recorded Confirmed Enalapril [Vasotec] 3 tab PO DAILY #180 tablet 10/25/20 05/31/21 Metoprolol Succinate [Toprol Xl] 50 mg PO BID #120 tablet 10/25/20 05/31/21 Atomoxetine HCl [Strattera] 40 mg PO DAILY 05/31/21 05/31/21 Oxycodone HCl/Acetaminophen 1 each PO Q6H PRN #12 tablet 05/31/21 [Percocet 5-325 mg Tablet] - Allergies Allergies/Adverse Reactions: Allergies Allergy/AdvReac Type Severity Reaction Status Date / Time No Known Drug Allergies Allergy Verified 05/31/21 11:56 - Social History Does the pt smoke?: Yes Smoking Status: Current every day smoker Does the pt drink ETOH?: No Does the pt have substance abuse?: No - Immunizations Immunizations are current?: Yes - POLST Patient has POLST: No POLST Status: Full Code PD ED PE NORMAL - Vitals Vital signs reviewed: Yes - General General: Alert and oriented X 3, No acute distress (does appear uncomfortable but not in distress per se. 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 PD MEDICAL DECISION MAKING - ED course Complexity details: considered differential (Patient with history of occipital neuralgia type symptoms in the past with a recurrent episode. Denies trauma, fever, atypical symptoms or focal problems. She states has been treated with occipital nerve injection in the back of the neck in the past successfully.), d/w patient Departure - Departure Disposition: 01 Home, Self Care Clinical Impression: Occipital neuralgia of right side Condition: Stable Record reviewed to determine appropriate education?: Yes Instructions: ED Cephalgia Unspecified Prescriptions: Oxycodone HCl/Acetaminophen [Percocet 5-325 mg Tablet] 1 each PO Q6H PRN #12 tablet PRN Reason: pain Comments: Home and rest today. See if this is improved through the day into tomorrow. Tylenol or ibuprofen if needed for mild pains. Oxycodone if needed for worse pain. I transmitted the prescription to [facility] pharmacy in [place]. I am prescribing a short course of narcotic pain medication for you. These are potentially dangerous and addictive medications that should be used carefully. These medications may constipate you. Take an jtpm-tqp-bvjngpc stool softener such as docusate twice daily with plenty of water while taking these medications. If you go 24 hours without a bowel movement, take xsst-sej-nnmpzrr MiraLAX, per package instructions. Do not drink or drive while taking these medications. If you received narcotic or sedating medications while in the emergency department do not drive for 24 hours. Store this medication in a safe, secure place and out of reach of children. It is a violation of federal law to give or sell this medication to another person or to use in a manner other than prescribed. The ED will not refill narcotic prescriptions, including prescriptions lost or stolen. You can dispose of unwanted medications at the [facility]'s office or at several pharmacies such as [facility].
[2021-05-31] MEDS ORDERED: KETOROLAC 30 MG/ML VIAL IM STA (14:27)
[2021-05-31] MEDS ORDERED: TRIAMCINOLONE 40 MG/ML VIAL IM STA (14:28)
== END 2021-05-31 16:16 | disposition home or self-care (01) ==
LOC: ED 11:44
DX: M54.81 Occipital neuralgia (principal); I10 Essential (primary) hypertension; F17.200 Nicotine dependence, unspecified, uncomplicated
CPT/HCPCS: 64405; 64450

== ENCOUNTER 2021-07-15 11:43 | Emergency (ER) | payer MEDICAID ==
--- NOTE | 2021-07-15 12:03 | ED Physician Documentation ---
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 She reports that she has a history of recurrent ear infections. Typically it is otitis externa but she never gets full relief when using antibiotic otic drops. She has been seen remotely in the past by ear nose throat. Denies the use of Q-tips. This morning she was bending over after washing her hair felt a sudden pop in her right ear and had mucopurulent yellow drainage that filled smell begin to drain. She states the pain is deep radiates to her jaw and teeth. No fevers. No recent illness. Patient is a daily tobacco user. Review of Systems Constitutional: denies: Fever, Chills Eyes: reports: Reviewed and negative Ears: reports: Loss of hearing, Ear pain, Drainage/discharge. 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: section, Tubal ligation - Present Medications Home Medications: Ambulatory Orders Medication Instructions Recorded Confirmed Enalapril [Vasotec] 3 tab PO DAILY #180 tablet 10/25/20 07/15/21 Metoprolol Succinate [Toprol Xl] 50 mg PO BID #120 tablet 10/25/20 07/15/21 Atomoxetine HCl [Strattera] 40 mg PO DAILY 05/31/21 07/15/21 Amox/Clav 875/125 [Augmentin] 1 each PO Q12H #20 tablet 07/15/21 - Allergies Allergies/Adverse Reactions: Allergies Allergy/AdvReac Type Severity Reaction Status Date / Time No Known Drug Allergies Allergy Verified 07/15/21 11:50 - Social History Does the pt smoke?: Yes Smoking Status: Current every day smoker Does the pt drink ETOH?: No Does the pt have substance abuse?: No - Immunizations Immunizations are current?: Yes - POLST Patient has POLST: No POLST Status: Full Code PD ED PE EXPANDED - General General: Alert, No acute distress, Well developed/nourished - HEENT HEENT: PERRL, Moist mucous membranes. No: Ears normal (Left TM 100% occluded with hard firm wax. Left external auditory canal is generally erythematous and inflamed though no drainage. Right EAC very erythematous and swollen. Unable able to visualize the TM secondary to copious mucopurulent drainage. Right ear very tender to exam. ), L TM bulging (no mastoid tenderness bilaterally.), Pharyngeal erythema, Swollen tonsils, Tonsillar exudate Results - Vitals Vitals: Vital Signs - 24 hr 07/15/21 11:48 Temperature 36.1 C L Heart Rate 87 Respiratory 16 Rate Blood Pressure 153/82 H O2 Saturation 100 Oxygen O2 Source Room air PD MEDICAL DECISION MAKING - ED course Complexity details: considered differential, d/w patient ED course: 30-year-old female presents emergency department for evaluation of acute on chronic ear pain. She reports recurrent otitis externa. States that she has never had found full relief with the use of antibiotic otic drops. On exam she has findings of otitis externa bilaterally. The right ear is quite inflamed and tender. Copious amount of mucopurulent drainage. I am unable to visualize the TM. Given the severity of this inner ear infection as well as the recurrent nature I will start the patient on a 10-day course of Augmentin. Discussed that she will need longer-term follow-up and evaluation with an ear nose throat doctor. Prescription has been sent electronically to [facility]. Emergent return precautions discussed for failure of symptoms to improve. Departure - Departure Disposition: 01 Home, Self Care Clinical Impression: Otitis media Qualifiers: Otitis media type: suppurative Chronicity: unspecified Laterality: right Qualified Code(s): H66.41 - Suppurative otitis media, unspecified, right ear Condition: Stable Record reviewed to determine appropriate education?: Yes Instructions: ED Otitis Media Acute Ch Prescriptions: Amox/Clav 875/125 [Augmentin] 1 each PO Q12H #20 tablet Comments: Teagan you are seen today for acute right ear pain. Both of your ears do show signs of chronic infection. I would like to start you on Augmentin. Please fill the prescription at the [facility]. It has been electronically sent. Because ear infections appear to be a recurrent and chronic problem for you it is going to be important that you follow-up with an ear nose throat doctor in the long-term. I recommend that you establish with a primary care doctor soon as possible in order to obtain the appropriate referral. I recommend Tylenol or ibuprofen for discomfort. A warm compress over the ear can also help alleviate pain. If you are having worsening pain, develop any fevers, inability to open your jaw or speak normally or you develop external ear swelling and redness then please return to the ER for a second evaluation.
[2021-07-15 12:12] VITALS: BP 148/86
== END 2021-07-15 12:11 | disposition home or self-care (01) ==
LOC: ED 11:43
DX: H66.3X1 Other chronic suppurative otitis media, right ear (principal); H60.93 Unspecified otitis externa, bilateral; H61.22 Impacted cerumen, left ear; I10 Essential (primary) hypertension; F17.200 Nicotine dependence, unspecified, uncomplicated
CPT/HCPCS: 99282; 99283

== ENCOUNTER 2021-07-20 15:54 | Emergency (ER) | payer MEDICAID ==
[2021-07-20 16:21] LABS: BASOPHILS # (AUTO) 0.1 10^3/uL (0.0-0.1); BASOPHILS % (AUTO) 1.1 %; EOSINOPHILS # (AUTO) 0.2 10^3/uL (0.0-0.7); EOSINOPHILS % (AUTO) 2.6 %; HCT - HEMATOCRIT 38.9 % (37.0-47.0); HGB - HEMOGLOBIN 12.6 g/dL (12.0-16.0); LYMPHOCYTES # (AUTO) 1.8 10^3/uL (1.5-3.5); LYMPHOCYTES % (AUTO) 26.5 %; MEAN CORPUSCULAR HEMOGLOBIN 28.1 pg (27.0-31.0); MEAN CORPUSCULAR HGB CONC 32.4 g/dL (32.0-36.0); MEAN CORPUSCULAR VOLUME 86.6 fL (81.0-99.0); MEAN PLATELET VOLUME 10.5 fL (7.9-10.8); MONOCYTES # (AUTO) 0.5 10^3/uL (0.0-1.0); MONOCYTES % (AUTO) 7.5 %; NEUTROPHILS # (AUTO) 4.1 10^3/uL (1.5-6.6); PLT - PLATELET COUNT 278 10^3/uL (130-450); RED BLOOD COUNT 4.49 10^6/uL (4.20-5.40); RED CELL DISTRIBUTION WIDTH 14.8 % (12.0-15.0); WHITE BLOOD COUNT 6.6 x10^3/uL (4.8-10.8)
[2021-07-20 16:35] LABS: ALBUMIN 3.8 g/dL (3.2-5.5); ALBUMIN/GLOBULIN RATIO 1.2 (1.0-2.2); BILIRUBIN,TOTAL 0.4 mg/dL (0.2-1.0); CALCIUM 8.8 mg/dL (8.5-10.3); CREATININE 0.8 mg/dL (0.4-1.0)
[2021-07-20] MEDS ORDERED: HYDROmorphone 1 MG/ML CARPUJECT IVP STA ×2 (16:43→17:41)
[2021-07-20] MEDS ORDERED: KETOROLAC 30 MG/ML VIAL IVP STA (16:43)
--- NOTE | 2021-07-20 16:49 | ED Physician Documentation ---
History of Present Illness - Stated complaint Stated Complaint: FEMALE - Chief complaint Chief Complaint: Abd Pain - History obtained from History obtained from: Patient - Additonal information Additional information: Patient comes emergency department chief complaint of pelvic and low back pain radiating down both legs after starting to have vaginal bleeding yesterday. No fevers or chills. No dysuria. No nausea or vomiting. She states she just had her period a week and a half ago, and is not sure where she is having it again. No other complaints at this time. Review of Systems Ten Systems: 10 systems reviewed and negative Constitutional: reports: Reviewed and negative Eyes: reports: Reviewed and negative Ears: reports: Reviewed and negative Nose: reports: Reviewed and negative Throat: reports: Reviewed and negative Cardiac: reports: Reviewed and negative Respiratory: reports: Reviewed and negative GI: reports: Abdominal Pain : reports: Vaginal bleeding, Irregular menses Skin: reports: Reviewed and negative Musculoskeletal: reports: Reviewed and negative Neurologic: reports: Reviewed and negative Psychiatric: reports: Reviewed and negative Endocrine: reports: Reviewed and negative Immunocompromised: reports: Reviewed and negative PD PAST MEDICAL HISTORY - Past Medical History Cardiovascular: Hypertension Respiratory: Asthma Neuro: Migraines Endocrine/Autoimmune: None GI: C.difficile 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 HEENT: Other Psych: Depression, Anxiety Musculoskeletal: Fibromyalgia Derm: None - Past Surgical History Past Surgical History: Yes /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: section, Tubal ligation - Present Medications Home Medications: Ambulatory Orders Medication Instructions Recorded Confirmed Enalapril [Vasotec] 3 tab PO DAILY #180 tablet 10/25/20 07/15/21 Metoprolol Succinate [Toprol Xl] 50 mg PO BID #120 tablet 10/25/20 07/15/21 Atomoxetine HCl [Strattera] 40 mg PO DAILY 05/31/21 07/15/21 Amox/Clav 875/125 [Augmentin] 1 each PO Q12H #20 tablet 07/15/21 Oxycodone HCl/Acetaminophen 1 - 2 each PO Q6H PRN #20 tablet 07/20/21 [Percocet 5-325 mg Tablet] - Allergies Allergies/Adverse Reactions: Allergies Allergy/AdvReac Type Severity Reaction Status Date / Time No Known Drug Allergies Allergy Verified 07/20/21 15:56 - Social History Does the pt smoke?: Yes Smoking Status: Current every day smoker Does the pt drink ETOH?: No Does the pt have substance abuse?: No - Immunizations Immunizations are current?: Yes - POLST Patient has POLST: No POLST Status: Full Code PD ED PE NORMAL - Vitals Vital signs reviewed: Yes - General General: Alert and oriented X 3, Well developed/nourished, Other (The patient is crying and groaning.) - HEENT HEENT: Atraumatic, PERRL, EOMI, Moist mucous membranes - Neck Neck: Supple, no meningeal sign - Cardiac Cardiac: RRR, No murmur, Strong equal pulses - Respiratory Respiratory: No respiratory distress, Clear bilaterally - Abdomen Abdomen: Soft, Non tender, Non distended - Derm Derm: Normal color, Warm and dry, No rash - Extremities Extremities: No deformity, No edema, No calf tenderness / cord - Neuro Neuro: Alert and oriented X 3, 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, Normal speech - Psych Psych: Normal mood, Normal affect Results - Vitals Vitals: Oxygen O2 Source Room air - Labs Labs: Laboratory Tests 07/20/21 07/20/21 07/20/21 16:17 16:17 16:17 WBC 6.6 RBC 4.49 Hgb 12.6 Hct 38.9 MCV 86.6 MCH 28.1 MCHC 32.4 RDW 14.8 Plt Count 278 MPV 10.5 Neut # (Auto) 4.1 Lymph # (Auto) 1.8 [place] # (Auto) 0.5 Eos # (Auto) 0.2 Baso # (Auto) 0.1 Absolute Nucleated RBC 0.00 Nucleated RBC % 0.0 Sodium 140 Potassium 4.0 Chloride 104 Carbon Dioxide 27 Anion Gap 9.0 BUN 16 Creatinine 0.8 Estimated GFR (MDRD) 83 L Glucose 118 H Calcium 8.8 Total Bilirubin 0.4 AST 17 ALT 17 Alkaline Phosphatase 44 Total Protein 7.0 Albumin 3.8 Globulin 3.2 Albumin/Globulin Ratio 1.2 Lipase 24 Serum HCG, Qual NEGATIVE Urine Color Urine Clarity Urine pH Ur Specific [place] Urine Protein Urine Glucose (UA) Urine Ketones Urine Occult Blood Urine Nitrite Urine Bilirubin Urine Urobilinogen Ur Leukocyte Esterase Urine RBC Urine WBC Ur Squamous Epith Cells Amorphous Sediment Urine Bacteria Ur Microscopic Review Urine Culture Comments Urine HCG, Qual 07/20/21 07/20/21 17:15 17:15 WBC RBC Hgb Hct MCV MCH MCHC RDW Plt Count MPV Neut # (Auto) Lymph # (Auto) [place] # (Auto) Eos # (Auto) Baso # (Auto) Absolute Nucleated RBC Nucleated RBC % Sodium Potassium Chloride Carbon Dioxide Anion Gap BUN Creatinine Estimated GFR (MDRD) Glucose Calcium Total Bilirubin AST ALT Alkaline Phosphatase Total Protein Albumin Globulin Albumin/Globulin Ratio Lipase Serum HCG, Qual Urine Color YELLOW Urine Clarity CLOUDY Urine pH 7.5 Ur Specific [place] 1.020 Urine Protein NEGATIVE Urine Glucose (UA) NEGATIVE Urine Ketones NEGATIVE Urine Occult Blood LARGE H Urine Nitrite NEGATIVE Urine Bilirubin NEGATIVE Urine Urobilinogen 0.2 (NORMAL) Ur Leukocyte Esterase NEGATIVE Urine RBC 11-25 H Urine WBC 0-3 Ur Squamous Epith Cells MANY Squamous H Amorphous Sediment Few Urine Bacteria Many H Ur Microscopic Review INDICATED Urine Culture Comments NOT INDICATED Urine HCG, Qual NEGATIVE PD MEDICAL DECISION MAKING - ED course Complexity details: reviewed results, re-evaluated patient, considered differential, d/w patient ED course: The patient was treated symptomatically in the emergency department and worked up with labs, which were unremarkable, and ultrasound, which showed an ovarian cyst. We have discussed home management of symptoms as well as the need for follow-up. We discussed the usual indications for return. Departure - Departure Disposition: Home, Self Care Clinical Impression: Dysfunctional uterine bleeding, Pelvic pain Ovarian cyst Qualifiers: Laterality: bilateral Qualified Code(s): N83.201 - Unspecified ovarian cyst, right side Condition: Stable Instructions: ED Bleed Irregular Vaginal, ED Cyst Ovarian Follow-Up: your,doctor in 1 week [Other] Prescriptions: Oxycodone HCl/Acetaminophen [Percocet 5-325 mg Tablet] 1 - 2 each PO Q6H PRN #20 tablet PRN Reason: pain Comments: You have bilateral ovarian cysts on ultrasound tonight. return for worsening pain. You should have a repeat ultrasound with your doctor in 4-6 weeks to re- evaluate the cysts. Your prescription was sent to [facility] in [place]. I am prescribing a short course of narcotic pain medication for you. These are potentially dangerous and addictive medications that should be used carefully. These medications may constipate you. Take an ipyp-smn-pvaioof stool softener (docusate) twice daily with plenty of water while taking these medications. If you go 24 hours without a bowel movement, take jqbe-icq-rrmvqth miralax, per package instructions. Do not drink or drive while taking these medications. If you received narcotic or sedating medications while in the emergency department, do not drive for 24 hours. Store this medication in a safe, secure place and out of reach of children. It is a violation of federal law to give or sell this medication to another person or to use in a manner other than prescribed. The ED will not refill narcotic prescriptions, including prescriptions lost or stolen. To dispose of unwanted medications: 1. [facility] at [address] in [place] has a medication drop box. They accept prescription medications (in pill form) Saturday through Saturday 9:00 a.m. to 5:00 p.m. 2. The [facility] [employer] accepts prescription medications (in pill form only) for disposal year round. Call for more in formation. 3. Contact the [facility] for the next [facility] sponsored prescription drug collection event. , [phone], or [phone]; Forms: Activity restrictions Discharge Date/Time: 07/20/21 19:12
[2021-07-20 17:29] LABS: BILIRUBIN,URINE NEGATIVE (NEGATIVE); GLUCOSE, URINE (UA) NEGATIVE (NEGATIVE); KETONES,URINE (UA) NEGATIVE (NEGATIVE); LEUKOCYTE ESTERASE, URINE NEGATIVE (NEGATIVE); NITRITE,URINE NEGATIVE (NEGATIVE); OCCULT BLOOD,URINE LARGE (NEGATIVE); PH,URINE 7.5 PH (5.0-7.5); PROTEIN,URINE NEGATIVE (NEGATIVE); UROBILINOGEN,URINE 0.2 (NORMAL) E.U./dL (NORMAL)
[2021-07-20 17:38] LABS: HCG,QUALITATIVE BLOOD NEGATIVE
[2021-07-20 17:38] LABS: CLARITY,URINE CLOUDY (CLEAR); HCG UR QUAL NEGATIVE
[2021-07-20 17:39] LABS: AMORPHOUS SEDIMENT,UR Few /LPF; BACTERIA,URINE Many /HPF (None Seen); SQUAMOUS EPITHELIAL CELL,UR MANY Squamous (<= Few); WBC,URINE 0-3 /HPF (0-5)
[2021-07-20 18:09] VITALS: BP 155/110
--- NOTE | 2021-07-20 18:32 | ED Physician Documentation ---
ED Addendum - Addendum Addendum: 07/20/21 18:59 30-year-old female signed out to me by Dr. Perez. Awaiting pelvic ultrasound. Pelvic ultrasound shows bilateral ovarian cyst. No evidence of torsion. Pain is well controlled here. Will prescribe pain medication for home. Patient does not want any hormonal therapy for the vaginal bleeding at this time. I will have her follow-up with her doctor for further care. Recommend repeat ultrasound in 4 to 6 weeks. I am prescribing a short course of short-acting opioid pain medication for this patient. 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 I have discussed that the opioids are for short term therapy only, and will not be refilled from the ED. patient counseled regarding signs and symptoms for which I believe and urgent re-evaluation would be necessary. Patient with good understanding of and agreement to plan and is comfortable going home at this time This document was made in part using voice recognition software. While efforts are made to proofread this document, sound alike and grammatical errors may occur. Departure - Departure Disposition: 01 Home, Self Care Clinical Impression: Dysfunctional uterine bleeding, Pelvic pain Ovarian cyst Qualifiers: Laterality: bilateral Qualified Code(s): N83.201 - Unspecified ovarian cyst, right side Condition: Stable Instructions: ED Bleed Irregular Vaginal, ED Cyst Ovarian Follow-Up: your,doctor in 1 week [Other] Prescriptions: Oxycodone HCl/Acetaminophen [Percocet 5-325 mg Tablet] 1 - 2 each PO Q6H PRN #20 tablet PRN Reason: pain Comments: You have bilateral ovarian cysts on ultrasound tonight. return for worsening pain. You should have a repeat ultrasound with your doctor in 4-6 weeks to re- evaluate the cysts. Your prescription was sent to [facility] in [place]. I am prescribing a short course of narcotic pain medication for you. These are potentially dangerous and addictive medications that should be used carefully. These medications may constipate you. Take an mniq-oci-zgopzbn stool softener (docusate) twice daily with plenty of water while taking these medications. If you go 24 hours without a bowel movement, take nicn-gxx-bvqubti miralax, per package instructions. Do not drink or drive while taking these medications. If you received narcotic or sedating medications while in the emergency department, do not drive for 24 hours. Store this medication in a safe, secure place and out of reach of children. It is a violation of federal law to give or sell this medication to another person or to use in a manner other than prescribed. The ED will not refill narcotic prescriptions, including prescriptions lost or stolen. To dispose of unwanted medications: 1. [facility] [address] in [place] has a medication drop box. They accept prescription medications (in pill form) Saturday through Saturday 9:00 a.m. to 5:00 p.m. 2. The [facility] Police Department accepts prescription medications (in pill form only) for disposal year round. Call for more information. 3. Contact the [facility] for the next [facility] sponsored prescription drug collection event. , [phone], or [phone]; Forms: Activity restrictions
[2021-07-20] MEDS ORDERED: oxyCODONE 5 MG TABLET PO STA (18:53)
--- NOTE | 2021-07-20 19:28 | Ultrasound Report ---
PROCEDURE: Pelvic w/Doppler Complete INDICATIONS: PELVIC PAIN TECHNIQUE: Real-time scanning was performed of the pelvic organs, with image documentation. Additional endovagi nal scanning was necessary due to incomplete visualization of the adnexal and endometrial structures by transabdominal scanning. COMPARISON: None. FINDINGS: No pathologic free abdominal or pelvic fluid. Uterus: Uterus is anteverted and measures 8.8 x 3.6 x 4.9 cm. The endometrium measures up to 0.5 cm. There is a prominent nabothian cyst measuring up to 2.7 cm. Ovaries: The right ovary measures 4.3 x 3.1 x 4.6 cm and the left ovary measures 4.1 x 3.4 x 4.8 cm. There is a septated left ovarian cyst measuring up to 3.0 x 2.6 x 3.3 cm. There is a right ovary and cyst measuring up to 3.4 x 3.6 x 2.8 cm. There are a few internal echoes within the right ovary. The re is patent arterial and venous flow demonstrated within the right and left ovaries. IMPRESSION: 1. No evidence of ovarian torsion at this time. 2. Bilateral ovarian cysts including a septated cyst on the left. Reviewed by: Jarett Duke MD on 07/20/2021 6:27 PM [facility] Approved by: Jarett Duke MD on 07/20/2021 6:27 PM [facility] Station ID: [id number]
== END 2021-07-20 19:12 | disposition home or self-care (01) ==
LOC: ED 15:54
DX: N93.8 Other specified abnormal uterine and vaginal bleeding (principal); R10.2 Pelvic and perineal pain; N83.202 Unspecified ovarian cyst, left side; N83.201 Unspecified ovarian cyst, right side; F17.200 Nicotine dependence, unspecified, uncomplicated
CPT/HCPCS: 36415; 76856; 80053; 81001; 81025; 83690; 84703; 85025; 93975; 96374; 96376; 99284; J1170; 81003; 87086

== ENCOUNTER 2021-08-04 17:12 | Emergency (ER) | payer MEDICAID ==
[2021-08-04 17:33] LABS: BILIRUBIN,URINE NEGATIVE (NEGATIVE); GLUCOSE, URINE (UA) NEGATIVE (NEGATIVE); KETONES,URINE (UA) NEGATIVE (NEGATIVE); LEUKOCYTE ESTERASE, URINE TRACE (NEGATIVE); NITRITE,URINE NEGATIVE (NEGATIVE); OCCULT BLOOD,URINE LARGE (NEGATIVE); PROTEIN,URINE 30 mg/dL (NEGATIVE); UROBILINOGEN,URINE 0.2 (NORMAL) E.U./dL (NORMAL)
[2021-08-04 17:41] LABS: CLARITY,URINE HAZY (CLEAR)
[2021-08-04 17:42] LABS: BACTERIA,URINE Few /HPF (None Seen); RBC,URINE TNTC /HPF (0-5); SQUAMOUS EPITHELIAL CELL,UR NONE SEEN (<= Few)
[2021-08-04 17:45] LABS: BASOPHILS # (AUTO) 0.1 10^3/uL (0.0-0.1); BASOPHILS % (AUTO) 0.8 %; EOSINOPHILS # (AUTO) 0.2 10^3/uL (0.0-0.7); EOSINOPHILS % (AUTO) 2.3 %; HCT - HEMATOCRIT 38.8 % (37.0-47.0); HGB - HEMOGLOBIN 12.5 g/dL (12.0-16.0); LYMPHOCYTES % (AUTO) 20.1 %; MEAN CORPUSCULAR HEMOGLOBIN 28.1 pg (27.0-31.0); MEAN CORPUSCULAR HGB CONC 32.2 g/dL (32.0-36.0); MEAN CORPUSCULAR VOLUME 87.2 fL (81.0-99.0); MEAN PLATELET VOLUME 10.6 fL (7.9-10.8); MONOCYTES # (AUTO) 0.6 10^3/uL (0.0-1.0); MONOCYTES % (AUTO) 6.6 %; NEUTROPHILS # (AUTO) 6.8 10^3/uL (1.5-6.6); PLT - PLATELET COUNT 279 10^3/uL (130-450); RED BLOOD COUNT 4.45 10^6/uL (4.20-5.40); RED CELL DISTRIBUTION WIDTH 14.9 % (12.0-15.0); WHITE BLOOD COUNT 9.7 x10^3/uL (4.8-10.8)
[2021-08-04 17:46] LABS: HCG UR QUAL NEGATIVE
[2021-08-04 17:56] LABS: ALBUMIN 3.9 g/dL (3.2-5.5); ALBUMIN/GLOBULIN RATIO 1.3 (1.0-2.2); BILIRUBIN,TOTAL 0.3 mg/dL (0.2-1.0); CALCIUM 8.8 mg/dL (8.5-10.3); CREATININE 0.6 mg/dL (0.4-1.0); POTASSIUM 3.6 mmol/L (3.5-5.0); TOTAL PROTEIN 6.8 g/dL (6.7-8.2)
[2021-08-04] MEDS ORDERED: HYDROmorphone 1 MG/ML CARPUJECT IVP STA ×3 (18:02→20:14)
[2021-08-04] MEDS ORDERED: KETOROLAC 30 MG/ML VIAL IVP STA (18:02)
--- NOTE | 2021-08-04 18:04 | ED Physician Documentation ---
PD HPI ABD PAIN - Stated complaint Stated Complaint: LOWER ABD PAIN - Chief complaint Chief Complaint: Abd Pain - History obtained from History obtained from: Patient - Additional information Additional information: 30-year-old woman with history of ovarian torsion and as well as ovary sparing surgery was seen here 2 weeks ago for pelvic pain and diagnosed with ovarian cysts, specifically she had bilateral ovarian cysts with a septated cyst on the left. She was doing okay but this morning developed severe pelvic especially right-sided pain associated with small blood clots in the urine but without dysuria or frequency. She also feels kind of generally ill with chills and fatigue. 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 HEENT: Other Psych: Depression, Anxiety Musculoskeletal: Fibromyalgia Derm: None - Past Surgical History Past Surgical History: Yes /ROUTE DELIVERY MANAGER: section, Tubal ligation - Present Medications Home Medications: Ambulatory Orders Medication Instructions Recorded Confirmed Enalapril [Vasotec] 3 tab PO DAILY #180 tablet 10/25/20 08/04/21 Metoprolol Succinate [Toprol Xl] 50 mg PO BID #120 tablet 10/25/20 08/04/21 Ciprofloxacin [Cipro] 250 mg PO Q12H #5 tablet 08/04/21 Oxycodone HCl/Acetaminophen 1 - 2 each PO Q6H PRN #14 tablet 08/04/21 [Percocet 5-325 mg Tablet] - Allergies Allergies/Adverse Reactions: Allergies Allergy/AdvReac Type Severity Reaction Status Date / Time No Known Drug Allergies Allergy Verified 08/04/21 17:21 - Social History Does the pt smoke?: Yes Smoking Status: Current every day smoker Does the pt drink ETOH?: No Does the pt have substance abuse?: No - Immunizations Immunizations are current?: Yes - POLST Patient has POLST: No POLST Status: Full Code PD ED PE NORMAL - Vitals Vital signs reviewed: Yes - General General: Alert and oriented X 3, Other (She appears uncomfortable) - Cardiac Cardiac: RRR, No murmur - Respiratory Respiratory: No respiratory distress, Clear bilaterally - Abdomen Abdomen: Other (No diffuse abdominal tenderness or peritonitis but she is focally tender in the midline pelvis and right pelvis) - Back Back: No CVA TTP, No spinal TTP - Derm Derm: Normal color, Warm and dry - Extremities Extremities: No edema, No calf tenderness / cord - Neuro Neuro: Alert and oriented X 3, Normal speech Results - Vitals Vitals: Vital Signs - 24 hr 08/04/21 08/04/21 08/04/21 17:16 19:21 20:23 Temperature 36.4 C L Heart Rate 97 77 78 Respiratory 18 19 17 Rate Blood Pressure 174/122 H 170/111 H 153/114 H O2 Saturation 98 98 97 08/04/21 20:41 Temperature Heart Rate 66 Respiratory 15 Rate Blood Pressure 161/105 H O2 Saturation 98 Oxygen O2 Source Room air - Labs Labs: Laboratory Tests 08/04/21 08/04/21 08/04/21 17:28 17:29 17:35 WBC 9.7 RBC 4.45 Hgb 12.5 Hct 38.8 MCV 87.2 MCH 28.1 MCHC 32.2 RDW 14.9 Plt Count 279 MPV 10.6 Neut # (Auto) 6.8 H Lymph # (Auto) 2.0 Hickman # (Auto) 0.6 Eos # (Auto) 0.2 Baso # (Auto) 0.1 Absolute Nucleated RBC 0.00 Nucleated RBC % 0.0 Sodium Potassium Chloride Carbon Dioxide Anion Gap BUN Creatinine Estimated GFR (MDRD) Glucose Calcium Total Bilirubin AST ALT Alkaline Phosphatase Total Protein Albumin Globulin Albumin/Globulin Ratio Lipase Urine Color YELLOW Urine Clarity HAZY Urine pH 7.0 Ur Specific [place] 1.025 Urine Protein 30 H Urine Glucose (UA) NEGATIVE Urine Ketones NEGATIVE Urine Occult Blood LARGE H Urine Nitrite NEGATIVE Urine Bilirubin NEGATIVE Urine Urobilinogen 0.2 (NORMAL) Ur Leukocyte Esterase TRACE H Urine RBC TNTC H Urine WBC 11-25 H Ur Squamous Epith Cells NONE SEEN Urine Bacteria Few Ur Microscopic Review INDICATED Urine Culture Comments INDICATED Urine HCG, Qual NEGATIVE 08/04/21 17:35 WBC RBC Hgb Hct MCV MCH MCHC RDW Plt Count MPV Neut # (Auto) Lymph # (Auto) Hickman # (Auto) Eos # (Auto) Baso # (Auto) Absolute Nucleated RBC Nucleated RBC % Sodium 137 Potassium 3.6 Chloride 102 Carbon Dioxide 25 Anion Gap 10.0 BUN 18 Creatinine 0.6 Estimated GFR (MDRD) 116 Glucose 102 H Calcium 8.8 Total Bilirubin 0.3 AST 14 ALT 16 Alkaline Phosphatase 39 L Total Protein 6.8 Albumin 3.9 Globulin 2.9 Albumin/Globulin Ratio 1.3 Lipase 23 Urine Color Urine Clarity Urine pH Ur Specific [place] Urine Protein Urine Glucose (UA) Urine Ketones Urine Occult Blood Urine Nitrite Urine Bilirubin Urine Urobilinogen Ur Leukocyte Esterase Urine RBC Urine WBC Ur Squamous Epith Cells Urine Bacteria Ur Microscopic Review Urine Culture Comments Urine HCG, Qual - Rads (name of study) pelvic sono Radiology: EMP read contemporaneously (2 mildly complicated left ovarian cysts and a simple right ovarian cyst without evidence of torsion) PD MEDICAL DECISION MAKING - ED course ED course: 30-year-old woman presents with pelvic pain but also cloudy hematuria. Pelvic ultrasound was unchanged from prior, given the clots wondered if she might have renal colic and this was followed by CT which was negative for same. Pain was controlled with divided doses of pain medication here and nontender on discharge. I am prescribing a short course of short-acting opioid pain medication for this patient. 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 I have discussed that the opioids are for short term therapy only, and will not be refilled from the ED. Departure - Departure Disposition: 01 Home, Self Care Clinical Impression: Pelvic pain, Ovarian cyst, Hypertension, Cystitis Condition: Stable Record reviewed to determine appropriate education?: Yes Instructions: ED UTI Cystitis Female, ED Pelvic Pain [facility] Follow-Up: [facility] [Provider Group] Prescriptions: Ciprofloxacin [Cipro] 250 mg PO Q12H #5 tablet Oxycodone HCl/Acetaminophen [Percocet 5-325 mg Tablet] 1 - 2 each PO Q6H PRN #14 tablet PRN Reason: pain Comments: Prescription sent electronically to [facility] in [place]. As discussed reasonable to follow-up with a battery mechanic and clinic name is on this form. Return for new or worsening symptoms. I am prescribing a short course of narcotic pain medication for you. These are potentially dangerous and addictive medications that should be used carefully. These medications may constipate you. Take an tpuw-bsp-iuqiwuo stool softener (docusate) twice daily with plenty of water while taking these medications. If you go 24 hours without a bowel movement, take ivyk-nuu-qidgzoa miralax, per package instructions. Do not drink or drive while taking these medications. If you received narcotic or sedating medications while in the emergency department, do not drive for 24 hours. Store this medication in a safe, secure place and out of reach of children. It is a violation of federal law to give or sell this medication to another person or to use in a manner other than prescribed. The ED will not refill narcotic prescriptions, including prescriptions lost or stolen. To dispose of unwanted medications: 1. [facility] at [address] in [place] has a medication drop box. They accept prescription medications (in pill form) Saturday through Saturday 9:00 a.m. to 5:00 p.m. 2. The [facility] Police Department accepts prescription medications (in pill form only) for disposal year round. Call for more information. 3. Contact the [facility] for the next [facility] sponsored prescription drug collection event. , [phone], or [phone]; Note that many narcotic pain relievers also contain Tylenol/acetaminophen. Please ensure that your total dose of acetaminophen from all sources does not exceed 3 g (3000 mg) per day.
--- NOTE | 2021-08-04 19:34 | Ultrasound Report ---
PROCEDURE: Pelvic w/Transvag+Doppler Comp INDICATIONS: pelvic pain TECHNIQUE: Real-time scanning was performed of the pelvic organs, with image documentation. Additional endovagi nal scanning was necessary due to incomplete visualization of the adnexal and endometrial structures by transabdominal scanning. COMPARISON: Pelvic ultrasound 07/20/2021. FINDINGS: No pathologic free abdominal or pelvic fluid. Uterus: Uterus is normal in size at 7.8 x 3.9 x 4.9 cm cm. The uterus is anteverted and the myometri um appears homogeneous. The endometrium measures 7 mm in combined thickness. Prominent nabothian cys t again noted. Ovaries: Right ovary measures 3.3 x 2.5 x 3.9 cm (16.7 cc). The left ovary measures 3.3 x 2.6 x 2.6 cm (11.7 cc). Blood flow is demonstrated to each ovary. A simple right ovarian cyst measures 2.6 x 2. 2 x 2.9 cm, previously 3.4 x 3.6 x 2.8 cm. A mildly thick-walled left ovarian cyst measures 2.4 x 2.6 x 2.2 cm, most likely an involuting corpus luteal cyst. A second left ovarian cyst measures 1.7 x 1. 7 x 1.6 cm with lacelike septations, that may represent a resolving hemorrhagic cyst. On ultrasound f rom 07/20/2021, a single septated left ovarian cyst measures 3.0 x 2.6 x 3.3 cm. IMPRESSION: 1.No sonographic signs of ovarian torsion. 2.Two mildly complicated left ovarian cysts are seen measuring 2.6 and 1.7 cm respectively, likely re presenting corpus luteal or hemorrhagic cysts. 3.Simple right ovarian cyst has decreased in size. Reviewed by: Ben Gupta MD on 08/04/2021 7:33 PM PST Approved by: Ben Gupta MD on 08/04/2021 7:33 PM PST Station ID: [id number]
--- NOTE | 2021-08-04 20:58 | CT Report ---
PROCEDURE: Abdomen/Pelvis WO INDICATIONS: R pelvic pain and hematuria TECHNIQUE: Noncontrast 5 mm thick sections acquired from the diaphragms to the symphysis. 5 mm coronal and sagi ttal reformats were then performed. For radiation dose reduction, the following was used: automated exposure control, adjustment of mA and/or kV according to patient size. COMPARISON: CT abdomen/pelvis 06/05/2017. Pelvic ultrasound 08/04/2021. FINDINGS: Image quality: Excellent. ABDOMEN: Lung bases: Lung bases are clear. Heart size is normal. Solid organs: Liver and spleen are normal in size. Gallbladder is unremarkable. Pancreas is normal in contours. No adrenal nodules. Kidneys are normal in size, without hydronephrosis or nephrolithi asis. Peritoneum and bowel: Unenhanced bowel loops demonstrate normal wall thickness and caliber. Normal r etrocecal appendix. No free fluid or air. Nodes and vessels: No retroperitoneal or mesenteric adenopathy by size criteria. Aorta and inferior vena cava are normal in caliber. Miscellaneous: No ventral hernias. PELVIS: Genitourinary: Bladder wall thickness is normal. The ovaries are symmetric in size. No ovarian cyst s are better demonstrated on the pelvic ultrasound performed earlier the same day. Miscellaneous: No inguinal hernias or adenopathy. Bones: No suspicious bony lesions. No vertebral body compression fractures. IMPRESSION: No renal or ureteral calculus or hydronephrosis. No acute abnormality is seen in the abdomen or pelvi s. Reviewed by: Ben Gupta MD on 08/04/2021 8:56 PM PST Approved by: Ben Gupta MD on 08/04/2021 8:56 PM PST Station ID: [id number]
[2021-08-04] MEDS ORDERED: CIPROFLOXACIN 250 MG TABLET PO STA (21:28)
[2021-08-04] MEDS ORDERED: oxyCODONE/ACET 5/325 Prepack 4 PO STA (21:28)
[2021-08-04 21:51] VITALS: BP 148/110
== END 2021-08-04 21:25 | disposition home or self-care (01) ==
LOC: ED 17:12
DX: N30.91 Cystitis, unspecified with hematuria (principal); R10.2 Pelvic and perineal pain; N83.292 Other ovarian cyst, left side; N83.291 Other ovarian cyst, right side; I10 Essential (primary) hypertension
CPT/HCPCS: 36415; 74176; 76830; 76856; 80053; 81001; 81025; 83690; 85025; 87086; 93975; 96374; 96376; 99284; A9270; J1170; 81003

== ENCOUNTER 2021-08-06 12:27 | Emergency (ER) | payer MEDICAID ==
[2021-08-06] MEDS ORDERED: HYDROmorphone 1 MG/ML CARPUJECT IM STA (12:58)
[2021-08-06] MEDS ORDERED: KETOROLAC 60 MG/2 ML VIAL IM STA (12:58)
--- NOTE | 2021-08-06 13:01 | ED Physician Documentation ---
PD HPI ABD PAIN - Stated complaint Stated Complaint: PX - Chief complaint Chief Complaint: Abd Pain - History obtained from History obtained from: Patient - Additional information Additional information: 30-year-old woman with history of hypertension and pelvic pain and cysts was seen the other day for an ovarian cyst pain and also diagnosed with UTI based on positive urinalysis. Subsequent urine culture grew less than 10,000 urogenital trisha. She was unable to get to the pharmacy because of [place] and I guess the pharmacist at her usual pharmacy did not show up today so has not been able to get any of her meds and her pain and hematuria continues. The other day she did have an ultrasound as well as a CT to evaluate for nephro/ureterolithiasis. Pain is still severe, pelvic. 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 : None HEENT: Other Psych: Depression, Anxiety Musculoskeletal: Fibromyalgia Derm: None - Past Surgical History Past Surgical History: Yes /PANEL EDGE SEALER: section, Tubal ligation - Present Medications Home Medications: Ambulatory Orders Medication Instructions Recorded Confirmed Enalapril [Vasotec] 3 tab PO DAILY #180 tablet 10/25/20 08/04/21 Metoprolol Succinate [Toprol Xl] 50 mg PO BID #120 tablet 10/25/20 08/04/21 Ciprofloxacin [Cipro] 250 mg PO Q12H #6 tablet 08/06/21 Oxycodone HCl/Acetaminophen 1 - 2 each PO Q6H PRN #14 tablet 08/06/21 [Percocet 5-325 mg Tablet] Phenazopyridine HCl [Pyridium] 200 mg PO TID PRN #6 tablet 08/06/21 - Allergies Allergies/Adverse Reactions: Allergies Allergy/AdvReac Type Severity Reaction Status Date / Time No Known Drug Allergies Allergy Verified 08/06/21 12:40 - Social History Does the pt smoke?: Yes Smoking Status: Current every day smoker Does the pt drink ETOH?: No Does the pt have substance abuse?: No - Immunizations Immunizations are current?: Yes - POLST Patient has POLST: No POLST Status: Full Code PD ED PE NORMAL - Vitals Vital signs reviewed: Yes (She is hypertensive) - General General: Alert and oriented X 3, Other (She appears to be in pain) - Abdomen Abdomen: Normal bowel sounds, Soft, Non tender, Other (She has a sensation of inability to urinate but bedside ultrasound shows inconsequential amount of urine in the bladder.) - Derm Derm: Normal color, Warm and dry - Neuro Neuro: Alert and oriented X 3, Normal speech Results - Vitals Vitals: Vital Signs - 24 hr 08/06/21 08/06/21 12:36 13:30 Temperature 37.1 C Heart Rate 100 78 Respiratory 18 18 Rate Blood Pressure 198/131 H 179/120 H O2 Saturation 97 99 Oxygen O2 Source Room air PD MEDICAL DECISION MAKING - ED course ED course: 30-year-old woman with pelvic pain of kind of unclear etiology. She had a thorough work-up the other day without pertinent positive findings except for ovarian cysts and a positive UA which subsequently did not grow anything significant. She is having clots in the urine which I really cannot explain in light of the previous findings. She doubts STDs as she has been monogamous for many years but we will check. She was given a dose of levofloxacin here presuming she still has some element of cystitis and her prescriptions were changed to a different pharmacy and the previous prescriptions were canceled. She is sure the urine is the source of the blood since she put in a vaginal cup and there is no blood in that. Discussed with her that she may need cystoscopy and follow-up. Departure - Departure Disposition: 01 Home, Self Care Condition: Good Record reviewed to determine appropriate education?: Yes Instructions: ED Pelvic Pain [facility] Prescriptions: Ciprofloxacin [Cipro] 250 mg PO Q12H #6 tablet Oxycodone HCl/Acetaminophen [Percocet 5-325 mg Tablet] 1 - 2 each PO Q6H PRN #14 tablet PRN Reason: pain Phenazopyridine HCl [Pyridium] 200 mg PO TID PRN #6 tablet PRN Reason: dysuria Comments: Your prescriptions were sent electronically to [facility] pharmacy in [place]. You have pending tests for STDs, we will call if positive. As discussed, given the blood in the urine and negative urine culture from the other day, you will need a follow-up cystoscopy. This is a procedure done by a urologist. The closest is in [place], the phone number is [phone]. Discharge Date/Time: 08/06/21 13:31
[2021-08-06] MEDS ORDERED: levoFLOXacin 250 MG TABLET PO STA (13:11)
[2021-08-06] MEDS ORDERED: PHENAZOPYRIDINE 100 MG TABLET PO STA (13:16)
[2021-08-06 13:31] VITALS: BP 179/120
[2021-08-06 22:44] LABS: CHLAMYDIA TRACHOMATIS DNA NEGATIVE (NEGATIVE); NEISSERIA GONORRHOEAE DNA NEGATIVE (NEGATIVE); TRICHOMONAS VAGINALIS DNA NEGATIVE (NEGATIVE)
== END 2021-08-06 13:31 | disposition home or self-care (01) ==
LOC: ED 12:27
DX: R10.2 Pelvic and perineal pain (principal); R31.0 Gross hematuria; F17.200 Nicotine dependence, unspecified, uncomplicated
CPT/HCPCS: 87491; 87591; 87661; 99283; A9270; J1170

== ENCOUNTER 2021-10-21 17:43 | Emergency (ER) | payer MEDICAID ==
[2021-10-21 17:52] VITALS: BP 209/124
--- NOTE | 2021-10-21 18:49 | XRAY Report ---
PROCEDURE: Shoulder 3 View RT INDICATIONS: pulled shoulder whil walking dog TECHNIQUE: 3 views of the shoulder were acquired. COMPARISON: None. FINDINGS: Bones: No No suspicious bony lesions. Visualized ribs appear intact. Soft tissues: No suspicious soft tissue calcifications. IMPRESSION: No shoulder fracture or dislocation. No gross soft tissue abnormality. Reviewed by: Jerry Arias MD on 10/21/2021 6:47 PM PST Approved by: Jerry Arias MD on 10/21/2021 6:47 PM PST Station ID: [id number]
--- NOTE | 2021-10-21 19:32 | ED Physician Documentation ---
History of Present Illness - Stated complaint Stated Complaint: RT ARM/SHOULDER INJ - Chief complaint Chief Complaint: Trauma Ext - Additonal information Additional information: 30-year-old female presents emergency department for evaluation of acute right shoulder pain that occurred this afternoon when walking her dog. He weighs approximately 90 pounds and he ran suddenly after a car pulling her then ran backwards pulling her in the opposite direction. She feels a pulling sensation in her shoulder as well as some tingling in the fingertips. No history of previous injury. 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 HEENT: Other Psych: Depression, Anxiety Musculoskeletal: Fibromyalgia Derm: None - Past Surgical History Past Surgical History: Yes /COTTON STRIPPER: section, Tubal ligation - Present Medications Home Medications: Ambulatory Orders Medication Instructions Recorded Confirmed Enalapril [Vasotec] 3 tab PO DAILY #180 tablet 10/25/20 08/04/21 Metoprolol Succinate [Toprol Xl] 50 mg PO BID #120 tablet 10/25/20 08/04/21 Ciprofloxacin [Cipro] 250 mg PO Q12H #6 tablet 08/06/21 Oxycodone HCl/Acetaminophen 1 - 2 each PO Q6H PRN #14 tablet 08/06/21 [Percocet 5-325 mg Tablet] Phenazopyridine HCl [Pyridium] 200 mg PO TID PRN #6 tablet 08/06/21 Oxycodone HCl/Acetaminophen 1 - 2 each PO Q6H PRN #14 tablet 08/14/21 [Percocet 5-325 mg Tablet] Valacyclovir HCl [Valtrex] 1,000 mg PO BID #14 tablet 08/14/21 oxyCODONE [Roxicodone] 5 mg PO BID #10 tablet 10/21/21 - Allergies Allergies/Adverse Reactions: Allergies Allergy/AdvReac Type Severity Reaction Status Date / Time No Known Drug Allergies Allergy Verified 10/21/21 17:55 - Social History Does the pt smoke?: Yes Smoking Status: Current every day smoker Does the pt drink ETOH?: No Does the pt have substance abuse?: No - Immunizations Immunizations are current?: Yes - POLST Patient has POLST: No POLST Status: Full Code PD ED PE EXPANDED - General General: Alert, No acute distress - Extremities Extremities: Right shoulder (Tenderness with palpation at the AC joint and anterior shoulder. Positive drop arm test. 2+ radial pulse. Reduced grasp and oracle consultant at the hand.) Results - Vitals Vitals: Vital Signs - 24 hr 10/21/21 17:47 Temperature 36.4 C L Heart Rate 89 Respiratory 16 Rate Blood Pressure 209/124 H O2 Saturation 99 Oxygen O2 Source Room air - Rads (name of study) right shoulder Radiology: Final report received (No acute shoulder fracture or dislocation.) PD MEDICAL DECISION MAKING - ED course Complexity details: reviewed results, re-evaluated patient, considered differential, d/w patient ED course: 30-year-old female presents emergency department for evaluation of acute right shoulder pain that sustained this afternoon when her dog pulled her forcefully while she was walking him. No history of previous injury. History and exam is most consistent with an early rotator cuff pathology. Patient is placed in a sling. We discussed range of motion exercises to limit adhesive capsulitis. We will schedule follow-up with PCP. If not improved over the next 7 to 10 days may benefit from physical therapy or further evaluation with MRI. I am prescribing a short course of short-acting opioid pain medication for this patient. 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 I have discussed that the opioids are for short term therapy only, and will not be refilled from the ED. Departure - Departure Disposition: 01 Home, Self Care Clinical Impression: Right shoulder strain Qualifiers: Encounter type: initial encounter Qualified Code(s): S46.911A - Strain of unspecified muscle, fascia and tendon at shoulder and upper arm level, right arm, initial encounter Instructions: Rotator Cuff Injury Prescriptions: oxyCODONE [Roxicodone] 5 mg PO BID #10 tablet Comments: Teagan kulkarni are seen today in the emergency department for acute right shoulder pain after your arm was pulled while walking her dog. As we discussed at the bedside a suspect that you have a mild shoulder sprain though it is possible you have a mild rotator cuff injury. Typically co nservative management will allow this to heal over time. You can use the sling for comfort but continue to do range of motion exercises at discussed to prevent adhesive capsulitis. Please continue to ice the shoulder and use the ibuprofen and Tylenol as you have been. For severe pain I have prescribed some oxycodone to the [facility] in [place]. If not markedly better in 7 to 10 days I recommend close follow-up with your primary care provider. At that time you may benefit from referral to physical therapy and/or consideration of an MRI. I am prescribing a short course of narcotic pain medication for you. These are potentially dangerous and addictive medications that should be used carefully. These medications may constipate you. Take an egrx-jwf-bcmogru stool softener (docusate) twice daily with plenty of water while taking these medications. If you go 24 hours without a bowel movement, take cnhz-khh-njnlcip miralax, per package instructions. Do not drink or drive while taking these medications. If you received narcotic or sedating medications while in the emergency department, do not drive for 24 hours. Store this medication in a safe, secure place and out of reach of children. It is a violation of federal law to give or sell this medication to another person or to use in a manner other than prescribed. The ED will not refill narcotic prescriptions, including prescriptions lost or stolen. To dispose of unwanted medications: 1. [facility] [address] in [place] has a medication drop box. They accept prescription medications (in pill form) Saturday through Saturday 9:00 a.m. to 5:00 p.m. 2. The [facility] Department accepts prescription medications (in pill form only) for disposal year round. Call for more information. 3. Contact the [facility] for the next [facility] sponsored prescription drug collection event. , [phone], or [phone]; Note that many narcotic pain relievers also contain Tylenol/acetaminophen. Please ensure that your total dose of acetaminophen from all sources does not exceed 3 g (3000 mg) per day.
[2021-10-21] MEDS ORDERED: oxyCODONE/ACET 5/325 Prepack 4 PO STA (19:35)
== END 2021-10-21 19:56 | disposition home or self-care (01) ==
LOC: ED 17:43
DX: S46.911A Strain of unspecified muscle, fascia and tendon at shoulder and upper arm level, right arm, initial encounter (principal); X58.XXXA Exposure to other specified factors, initial encounter; Y93.K1 Activity, walking an animal; I10 Essential (primary) hypertension; F17.200 Nicotine dependence, unspecified, uncomplicated
CPT/HCPCS: 99282; 99283

== ENCOUNTER 2021-11-27 08:36 | Emergency (ER) | payer MEDICAID ==
[2021-11-27] MEDS ORDERED: PROMETHAZINE INJ 25 MG in SODIUM CHLORIDE 0.9% 50 ML IV STA (09:12)
[2021-11-27] MEDS ORDERED: SODIUM CHLORIDE 0.9% 1,000 ML IV STA (09:12)
[2021-11-27] MEDS ORDERED: HYDROmorphone 0.5 MG/0.5 ML SYRINGE IVP STA (09:12)
--- NOTE | 2021-11-27 09:58 | CT Report ---
PROCEDURE: HEAD WO INDICATIONS: severe headache after orgasm TECHNIQUE: Noncontrast 4.5 mm thick angled axial sections acquired from the foramen magnum to the vertex. For r adiation dose reduction, the following was used: automated exposure control, adjustment of mA and/or kV according to patient size. COMPARISON: 05/03/2017 and MRI of brain dated 05/04/2017.. FINDINGS: Image quality: Excellent. CSF spaces: Basal cisterns are patent. No extra-axial fluid collections. Ventricles are normal in size and shape. Brain: No midline shift. No intracranial masses or hemorrhage. Hummel-white matter interface is norm al. Skull and face: Calvarium and visualized facial bones are intact, without suspicious lesions. Sinuses: Visualized sinuses and mastoids are clear. IMPRESSION: No CT evidence of acute intracranial abnormalities. No significant changes from prior st ud. Reviewed by: Jerry Arias MD on 11/27/2021 9:57 AM PDT Approved by: Jerry Arias MD on 11/27/2021 9:57 AM PDT Station ID: [id number]
[2021-11-27] MEDS ORDERED: KETOROLAC 30 MG/ML VIAL IVP STA (10:01)
[2021-11-27] MEDS ORDERED: IOVERSOL 320 100 ML VIAL IVP ONE ×2 (10:56→15:12)
--- NOTE | 2021-11-27 11:22 | CT Report ---
PROCEDURE: ANGIO HEAD W/WO INDICATIONS: Sudden onset severe headache CONTRAST: IV CONTRAST: Optiray 320 ml: 80 PO CONTRAST: *NO PO CONTRAST TECHNIQUE: Precontrast 4.5 mm thick angled axial sections acquired from the foramen magnum to the vertex. Afte r the administration of intravenous contrast, 1 mm thick sections acquired through the [place] of [place] is. Postcontrast 4.5 mm thick sections then re-acquired from the foramen magnum to the vertex. 3-di mensional tktolwz-uxarqkqoh-bysqbqfnuc (MIP) and/or volume rendering reformats were acquired of the c entral intracranial vasculature. For radiation dose reduction, the following was used: automated ex posure control, adjustment of mA and/or kV according to patient size. COMPARISON: CT angiogram 05/03/2017 FINDINGS: Image quality: Excellent. Anterior circulation: Intracranial internal carotid arteries are normal in size and flow. The flow within the paired anterior cerebral arteries is normal and symmetric. The flow within the middle cer ebral arteries is normal and symmetric. The anterior communicating artery is seen. No aneurysms are seen. Posterior circulation: Visualized portions of the vertebral arteries demonstrate normal caliber, and join to form a normal appearing basilar artery. Flow within the posterior cerebral arteries is norm al and symmetric. No aneurysms are seen. CSF spaces: Ventricles are normal in size and shape. Basal cisterns are patent. No extra-axial flu id collections. Brain: No midline shift. No intracranial bleeds or masses. Hummel-white matter interface appears int act. Skull and face: Calvarium and facial bones appear intact, without suspicious lesions. Sinuses: Visualized sinuses and mastoids are clear. IMPRESSION: Normal CT angiogram of the head. Reviewed by: Bahman Yusuf MD on 11/27/2021 11:20 AM PDT Approved by: Bahman Yusuf MD on 11/27/2021 11:20 AM PDT Station ID: [id number]
[2021-11-27] MEDS ORDERED: HYDROmorphone 1 MG/ML CARPUJECT IVP STA (11:29)
[2021-11-27] MEDS ORDERED: SUMAtriptan 6 MG/0.5 ML VIAL SUBQ STA (11:29)
--- NOTE | 2021-11-27 11:46 | ED Physician Documentation ---
History of Present Illness - Stated complaint Stated Complaint: HEAD PX - Chief complaint Chief Complaint: Neuro - History obtained from History obtained from: Patient - Additonal information Additional information: PT comes to the ED with CC of sudden onset of very bad headache that started as she was orgasming during intercourse at around 0300 this morning. PT states it started in the back of her head and then enveloped her entire head and has persisted since. She states it feels deep inside and is throbbing. She states any movement seems to make it worse. She is not nauseated or experiencing photophobia. No fever or chills. No focal neurologic deficits. Pt has tried her migraine medicine at home, and this hasn't helped. She was feeling completely fine before onset. No other complaints at this time. Review of Systems Ten Systems: 10 systems reviewed and negative Constitutional: reports: Reviewed and negative Eyes: reports: Reviewed and negative Ears: reports: Reviewed and negative Nose: reports: Reviewed and negative Throat: reports: Reviewed and negative Cardiac: reports: Reviewed and negative Respiratory: reports: Reviewed and negative GI: reports: Reviewed and negative : reports: Reviewed and negative Skin: reports: Reviewed and negative Musculoskeletal: reports: Reviewed and negative Neurologic: reports: Headache Psychiatric: reports: Reviewed and negative Endocrine: reports: Reviewed and negative Immunocompromised: reports: Reviewed and negative PD PAST MEDICAL HISTORY - Past Medical History Cardiovascular: Hypertension Respiratory: Asthma Neuro: Migraines Endocrine/Autoimmune: None GI: C.difficile DOCK BOSS: Other : None HEENT: Other Psych: Depression, Anxiety Musculoskeletal: Fibromyalgia Derm: None - Past Surgical History Past Surgical History: Yes /DOCK BOSS: section, Tubal ligation - Present Medications Home Medications: Ambulatory Orders Medication Instructions Recorded Confirmed Enalapril [Vasotec] 3 tab PO DAILY #180 tablet 10/25/20 08/04/21 Metoprolol Succinate [Toprol Xl] 50 mg PO BID #120 tablet 10/25/20 08/04/21 Ciprofloxacin [Cipro] 250 mg PO Q12H #6 tablet 08/06/21 Oxycodone HCl/Acetaminophen 1 - 2 each PO Q6H PRN #14 tablet 08/06/21 [Percocet 5-325 mg Tablet] Phenazopyridine HCl [Pyridium] 200 mg PO TID PRN #6 tablet 08/06/21 Oxycodone HCl/Acetaminophen 1 - 2 each PO Q6H PRN #14 tablet 08/14/21 [Percocet 5-325 mg Tablet] Valacyclovir HCl [Valtrex] 1,000 mg PO BID #14 tablet 08/14/21 oxyCODONE [Roxicodone] 5 mg PO BID #10 tablet 10/21/21 Ondansetron Odt [Zofran] 4 mg TL Q6H PRN #10 tablet 11/27/21 Oxycodone HCl/Acetaminophen 1 - 2 each PO Q6H PRN #14 tablet 11/27/21 [Percocet 5-325 mg Tablet] - Allergies Allergies/Adverse Reactions: Allergies Allergy/AdvReac Type Severity Reaction Status Date / Time No Known Drug Allergies Allergy Verified 11/27/21 08:48 - Social History Does the pt smoke?: Yes Smoking Status: Current every day smoker Does the pt drink ETOH?: No Does the pt have substance abuse?: No - Immunizations Immunizations are current?: Yes - POLST Patient has POLST: No POLST Status: Full Code PD ED PE NORMAL - Vitals Vital signs reviewed: Yes - General General: Alert and oriented X 3, No acute distress (Pt appears uncomfortable, but NAD), Well developed/nourished - HEENT HEENT: Atraumatic, PERRL, EOMI, Moist mucous membranes - Neck Neck: Supple, no meningeal sign, Other (Pt has mildly limited flexion of neck, secondary to pain/tightness. Mild tenderness to palpation neck musculature.) - Cardiac Cardiac: RRR, No murmur - Respiratory Respiratory: No respiratory distress, Clear bilaterally - Abdomen Abdomen: Soft, Non tender, Non distended - Back Back: No spinal TTP - Derm Derm: Normal color, Warm and dry, No rash - Extremities Extremities: No deformity, No edema, No calf tenderness / cord - Neuro Neuro: Alert and oriented X 3 - Psych Psych: Normal mood, Normal affect Results - Vitals Vitals: Oxygen O2 Source Room air - Rads (name of study) CT head noncon Radiology: Final report received, EMP read indepedently, See rad report (neg) CTA head Radiology: Final report received, EMP read indepedently, See rad report (nad) PD MEDICAL DECISION MAKING - ED course Complexity details: reviewed old records, reviewed results, re-evaluated patient, considered differential, d/w patient ED course: The pt did not have nuchal rigidity, and had no other associated sx of concern. However, she was visibly uncomfortable, and had had sudden-onset of significant headache which was different than her migraines after exertional activity, and it had persisted for some hours. Pt was treated initially with Dilaudid and Phenergan. CT noncontrast was negative. The pt reported feeling no better, so she was given more analgesia and sent for CTA. This was also negative. Pt reported feeling a little better. I discussed with the pt that given the very high sensitivity of CTA for ICH, including SAH, as well as the lack of other worrisome symptoms, I am confident that her sx do not represent an intracranial hemorrhage. We have discussed symptomatic management at home, and the usual indications for return. Departure - Departure Disposition: 01 Home, Self Care Clinical Impression: Headache Qualifiers: Headache type: unspecified Headache chronicity pattern: acute headache Intractability: not intractable Qualified Code(s): R51.9 - Headache, unspecified Condition: Stable Instructions: ED Cephalgia Unspecified Prescriptions: Oxycodone HCl/Acetaminophen [Percocet 5-325 mg Tablet] 1 - 2 each PO Q6H PRN #14 tablet PRN Reason: pain Ondansetron Odt [Zofran] 4 mg TL Q6H PRN #10 tablet PRN Reason: Nausea / Vomiting Comments: Both your noncontrast head CT and the CT with IV contrast look good. There is no evidence of bleeding in your brain. You may take ibuprofen and the prescribed pain medication as needed. The prescription has been electronically transmitted to [facility] in [place]. Forms: Activity restrictions Discharge Date/Time: 11/27/21 12:11
[2021-11-27 11:56] VITALS: BP 155/108
== END 2021-11-27 12:11 | disposition home or self-care (01) ==
LOC: ED 08:36
DX: R51.9 Headache, unspecified (principal); F17.200 Nicotine dependence, unspecified, uncomplicated
CPT/HCPCS: 70450; 70496; 96365; 96372; 96375; 96376; 99282; 99285; J1170; J7040; Q9967

== ENCOUNTER 2022-07-15 19:42 | Emergency (ER) | payer MEDICAID ==
[2022-07-15 20:20] LABS: BASOPHILS # (AUTO) 0.1 10^3/uL (0.0-0.1); BASOPHILS % (AUTO) 0.7 %; EOSINOPHILS # (AUTO) 0.2 10^3/uL (0.0-0.7); EOSINOPHILS % (AUTO) 1.8 %; HCT - HEMATOCRIT 41.5 % (37.0-47.0); HGB - HEMOGLOBIN 13.4 g/dL (12.0-16.0); LYMPHOCYTES # (AUTO) 2.6 10^3/uL (1.5-3.5); LYMPHOCYTES % (AUTO) 31.5 %; MEAN CORPUSCULAR HEMOGLOBIN 28.3 pg (27.0-31.0); MEAN CORPUSCULAR HGB CONC 32.3 g/dL (32.0-36.0); MEAN CORPUSCULAR VOLUME 87.7 fL (81.0-99.0); MEAN PLATELET VOLUME 10.9 fL (7.9-10.8); MONOCYTES # (AUTO) 0.5 10^3/uL (0.0-1.0); MONOCYTES % (AUTO) 6.3 %; NEUTROPHILS % (AUTO) 59.6 %; PLT - PLATELET COUNT 315 10^3/uL (130-450); RED BLOOD COUNT 4.73 10^6/uL (4.20-5.40); RED CELL DISTRIBUTION WIDTH 13.5 % (12.0-15.0); WHITE BLOOD COUNT 8.4 x10^3/uL (4.8-10.8)
[2022-07-15 20:25] LABS: BILIRUBIN,URINE NEGATIVE (NEGATIVE); GLUCOSE, URINE (UA) NEGATIVE (NEGATIVE); KETONES,URINE (UA) NEGATIVE (NEGATIVE); LEUKOCYTE ESTERASE, URINE SMALL (NEGATIVE); NITRITE,URINE NEGATIVE (NEGATIVE); OCCULT BLOOD,URINE TRACE-INTA (NEGATIVE); PROTEIN,URINE NEGATIVE (NEGATIVE); UROBILINOGEN,URINE 0.2 (NORMAL) E.U./dL (NORMAL)
[2022-07-15 20:26] LABS: HCG UR QUAL NEGATIVE
[2022-07-15] MEDS ORDERED: KETOROLAC 30 MG/ML VIAL IVP STA (20:26)
[2022-07-15 20:27] LABS: CLARITY,URINE HAZY (CLEAR)
--- NOTE | 2022-07-15 20:29 | ED Physician Documentation ---
PD HPI ABD PAIN - Stated complaint Stated Complaint: FEMALE - Chief complaint Chief Complaint: Abd Pain - History obtained from History obtained from: Patient - Additional information Additional information: This is a 31-year-old female who reports a history of ovarian torsion though she cannot recall which side, presents with sudden onset left pelvic pain this evening around 6 PM. She states she was picking up the dog food and suddenly felt pain on the left pelvis radiating into the left back. She does not have any urinary symptoms, no dysuria, urgency, frequency, no vaginal discharge. She Has been feeling well recently, no fever chills, no nausea, vomiting, diarrhea though she did feel somewhat nauseous right after the pain started. 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 WASHER: Other : None HEENT: Other Psych: Depression, Anxiety Musculoskeletal: Fibromyalgia Derm: None - Past Surgical History Past Surgical History: Yes /YEAST WASHER: section, Tubal ligation - Present Medications Home Medications: Ambulatory Orders Medication Instructions Recorded Confirmed Enalapril [Vasotec] 3 tab PO DAILY #180 tablet 10/25/20 07/15/22 Metoprolol Succinate [Toprol Xl] 50 mg PO BID #120 tablet 10/25/20 07/15/22 Ciprofloxacin [Cipro] 250 mg PO Q12H #6 tablet 08/06/21 07/15/22 Oxycodone HCl/Acetaminophen 1 - 2 each PO Q6H PRN #14 tablet 08/06/21 07/15/22 [Percocet 5-325 mg Tablet] Phenazopyridine HCl [Pyridium] 200 mg PO TID PRN #6 tablet 08/06/21 07/15/22 Oxycodone HCl/Acetaminophen 1 - 2 each PO Q6H PRN #14 tablet 08/14/21 07/15/22 [Percocet 5-325 mg Tablet] Valacyclovir HCl [Valtrex] 1,000 mg PO BID #14 tablet 08/14/21 07/15/22 oxyCODONE [Roxicodone] 5 mg PO BID #10 tablet 10/21/21 07/15/22 Ondansetron Odt [Zofran] 4 mg TL Q6H PRN #10 tablet 11/27/21 07/15/22 Oxycodone HCl/Acetaminophen 1 - 2 each PO Q6H PRN #14 tablet 11/27/21 07/15/22 [Percocet 5-325 mg Tablet] Ondansetron Odt [Zofran] 4 mg TL Q6H PRN #10 tablet 01/18/22 07/15/22 Sulfamethox/Trimeth 800/160 1 each PO BID #14 tablet 01/18/22 07/15/22 [Bactrim Ds 800/160] Benzonatate [Tessalon] 200 mg PO TID PRN #30 cap 04/08/22 07/15/22 Oxymetazoline HCl [Afrin] 15 ml NS Q8HR 3 Days #15 ml 04/08/22 07/15/22 Pseudoephedrine HCl [Sudafed] 30 mg PO Q6H #15 tablet 04/08/22 07/15/22 guaiFENesin [Mucinex] 1,200 mg PO BID #30 tablet 04/08/22 07/15/22 - Allergies Allergies/Adverse Reactions: Allergies Allergy/AdvReac Type Severity Reaction Status Date / Time No Known Drug Allergies Allergy Verified 07/15/22 20:02 - Social History Does the pt smoke?: Yes Smoking Status: Current every day smoker Does the pt drink ETOH?: No Does the pt have substance abuse?: No - Immunizations Immunizations are current?: Yes - POLST Patient has POLST: No POLST Status: Full Code PD ED PE NORMAL - Vitals Vital signs reviewed: Yes - General General: Alert and oriented X 3, No acute distress, Well developed/nourished - HEENT HEENT: Atraumatic, Moist mucous membranes - Cardiac Cardiac: RRR, No murmur, No gallop, No rub - Respiratory Respiratory: No respiratory distress, Clear bilaterally - Abdomen Abdomen: Normal bowel sounds, Soft, Non distended, No organomegaly, Other (tend er left groin w/o masses or hernias, no guarding. ) - Derm Derm: Normal color, Warm and dry, No rash - Extremities Extremities: No deformity, No edema Results - Vitals Vitals: Vital Signs - 24 hr 07/15/22 19:58 Temperature 36.4 C L Heart Rate 95 Respiratory 20 Rate Blood Pressure 191/120 H O2 Saturation 99 Oxygen O2 Source Room air - Labs Labs: Laboratory Tests 07/15/22 07/15/22 07/15/22 20:12 20:12 20:12 WBC 8.4 RBC 4.73 Hgb 13.4 Hct 41.5 MCV 87.7 MCH 28.3 MCHC 32.3 RDW 13.5 Plt Count 315 MPV 10.9 H Neut # (Auto) 5.0 Lymph # (Auto) 2.6 [place] # (Auto) 0.5 Eos # (Auto) 0.2 Baso # (Auto) 0.1 Absolute Nucleated RBC 0.00 Nucleated RBC % 0.0 Sodium 139 Potassium 4.5 Chloride 102 Carbon Dioxide 26 Anion Gap 11.0 BUN 18 Creatinine 0.7 Estimated GFR (MDRD) 96 Glucose 96 Calcium 9.1 Total Bilirubin 0.4 AST 18 ALT 16 Alkaline Phosphatase 52 Total Protein 7.8 Albumin 4.6 Globulin 3.2 Albumin/Globulin Ratio 1.4 Lipase 27 Urine Color YELLOW Urine Clarity HAZY Urine pH 6.0 Ur Specific [place] 1.025 Urine Protein NEGATIVE Urine Glucose (UA) NEGATIVE Urine Ketones NEGATIVE Urine Occult Blood TRACE-INTA Urine Nitrite NEGATIVE Urine Bilirubin NEGATIVE Urine Urobilinogen 0.2 (NORMAL) Ur Leukocyte Esterase SMALL H Urine RBC 0-5 Urine WBC >25 H Ur Squamous Epith Cells FEW Squamous Urine Bacteria Few Ur Microscopic Review INDICATED Urine Culture Comments INDICATED Urine HCG, Qual 07/15/22 20:12 WBC RBC Hgb Hct MCV MCH MCHC RDW Plt Count MPV Neut # (Auto) Lymph # (Auto) [place] # (Auto) Eos # (Auto) Baso # (Auto) Absolute Nucleated RBC Nucleated RBC % Sodium Potassium Chloride Carbon Dioxide Anion Gap BUN Creatinine Estimated GFR (MDRD) Glucose Calcium Total Bilirubin AST ALT Alkaline Phosphatase Total Protein Albumin Globulin Albumin/Globulin Ratio Lipase Urine Color Urine Clarity Urine pH Ur Specific [place] Urine Protein Urine Glucose (UA) Urine Ketones Urine Occult Blood Urine Nitrite Urine Bilirubin Urine Urobilinogen Ur Leukocyte Esterase Urine RBC Urine WBC Ur Squamous Epith Cells Urine Bacteria Ur Microscopic Review Urine Culture Comments Urine HCG, Qual NEGATIVE PD MEDICAL DECISION MAKING - ED course Complexity details: reviewed results, re-evaluated patient, considered differential, d/w patient ED course: This is a 31-year-old female who presented with sudden onset left sided pelvic pain this evening around 6 PM. On arrival here, patient appears uncomfortable but in no acute distress, is hypertensive but vitals are otherwise stable. She had some mild reproducible left lower quadrant pain on physical exam but no other acute physical exam findings. Differentials considered included ovarian cyst, ovarian torsion, UTI, renal stone, pyelonephritis. I ordered a pelvic ultrasound to evaluate for cyst or torsion and the patient has been given Toradol without significant relief in pain therefore we will give her Zofran followed by morphine. Patient's labs are reassuring, CBC and CMP are stable. Urinalysis does suggest possible infection with leukoesterase and WBCs. We will start treatment for possible UTI. Currently ultrasound is pending. Departure - Departure Clinical Impression: Acute cystitis Qualifiers: Hematuria presence: without hematuria Qualified Code(s): N30.00 - Acute cys titis without hematuria Condition: Good Instructions: ED UTI Cystitis Female
[2022-07-15 20:33] LABS: ALBUMIN 4.6 g/dL (3.2-5.5); ALBUMIN/GLOBULIN RATIO 1.4 (1.0-2.2); BILIRUBIN,TOTAL 0.4 mg/dL (0.2-1.0); CALCIUM 9.1 mg/dL (8.5-10.3); CREATININE 0.7 mg/dL (0.4-1.0); POTASSIUM 4.5 mmol/L (3.5-5.0); RBC,URINE 0-5 /HPF (0-5); TOTAL PROTEIN 7.8 g/dL (6.7-8.2); WBC,URINE >25 /HPF (0-5)
[2022-07-15 20:34] LABS: BACTERIA,URINE Few /HPF (None Seen); SQUAMOUS EPITHELIAL CELL,UR FEW Squamous (<= Few)
[2022-07-15] MEDS ORDERED: NITROFURANTOIN MACRO 100 MG CAPSULE PO STA (20:58)
[2022-07-15] MEDS ORDERED: ONDANSETRON 4 MG/2 ML VIAL IVP STA (21:01)
[2022-07-15] MEDS ORDERED: MORPHINE 2 MG/ML CARPUJECT IVP STA (21:01)
[2022-07-15] MEDS ORDERED: HYDROmorphone 1 MG/ML CARPUJECT IVP STA (21:50)
[2022-07-15] MEDS ORDERED: HYDROcod/ACET 5/325 Prepack 4 PO STA (21:51)
[2022-07-15 22:16] VITALS: BP 177/117
--- NOTE | 2022-07-15 22:38 | Ultrasound Report ---
PROCEDURE: Pelvic w/Transvaginal INDICATIONS: concern for ovarian torsion, left TECHNIQUE: Real-time scanning was performed of the pelvic organs, with image documentation. Additional endovagi nal scanning was necessary due to incomplete visualization of the adnexal and endometrial structures by transabdominal scanning. COMPARISON: Ultrasound pelvis 08/04/2021, 07/20/2021. FINDINGS: Uterus: Uterus is anteverted and measures 8.3 x 4.3 x 5.2 cm. Endometrium measures up to 0.5 cm. Ovaries: The right ovary measures 2.3 x 1.4 x 1.8 cm, with a calculated ovarian volume of 3.2 mL. The left ovary measures 2.6 x 2.5 x 3.4 cm, with a calculated ovarian volume of 11.3 mL. The ovaries have a normal sonographic appearance. Less than 12 follicles can be seen in each ovary. No adnexal masses. There is a thick-walled cyst in the left ovary measuring up to 1.9 x 1.7 x 1.7 cm with perip heral vascularity and color Doppler interrogation. There are a few thin internal septations within th e cyst compatible with a hemorrhagic cyst. There is patent arterial and venous flow demonstrated with in the ovaries. Other: No pathologic free abdominal or pelvic fluid. IMPRESSION: 1. No evidence of ovarian torsion. 2. Thick walled hemorrhagic cyst demonstrated in the left ovary. Reviewed by: Jarett Duke MD on 07/15/2022 10:37 PM PST Approved by: Jarett Duke MD on 07/15/2022 10:37 PM PST Station ID: [id number]
== END 2022-07-15 22:16 | disposition home or self-care (01) ==
LOC: ED 19:42
DX: N30.00 Acute cystitis without hematuria (principal); N83.202 Unspecified ovarian cyst, left side; F17.200 Nicotine dependence, unspecified, uncomplicated
CPT/HCPCS: 36415; 76830; 76856; 80053; 81001; 81025; 83690; 85025; 87086; 96374; 96375; 99281; 99284; A9270; J1170; 81003

== ENCOUNTER 2022-07-18 10:35 | Emergency (ER) | payer MEDICAID ==
[2022-07-18 11:58] LABS: B. PARAPERTUSSIS- RESP PCR PAN NOT DETECTED; B. PERTUSSIS- RESP PCR PANEL NOT DETECTED; C. PNEUMONIAE- RESP PCR PANEL NOT DETECTED; CORONAVIRUS 229E-RESP PCR NOT DETECTED; CORONAVIRUS HKU1-RESP PCR NOT DETECTED; CORONAVIRUS NL63-RESP PCR NOT DETECTED; CORONAVIRUS OC43-RESP PCR NOT DETECTED; HUMAN METAPNEUMOVIRUS NOT DETECTED; INFLUENZA A H1 2009- RESP PCR DETECTED; INFLUENZA B - RESP PCR PANEL NOT DETECTED; M. PNEUMONIAE- RESP PCR PANEL NOT DETECTED; PARAINFLUENZA VIRUS 1 NOT DETECTED; PARAINFLUENZA VIRUS 2 NOT DETECTED; PARAINFLUENZA VIRUS 3 NOT DETECTED; PARAINFLUENZA VIRUS 4 NOT DETECTED; RHINOVIRUS/ENTEROVIRUS NOT DETECTED; RSV- RESP PCR PANEL NOT DETECTED; SARS-CoV-2 -RESP PCR PANEL NOT DETECTED
[2022-07-18 13:00] VITALS: BP 138/87
--- NOTE | 2022-07-18 13:08 | ED Physician Documentation ---
History of Present Illness - Stated complaint Stated Complaint: FEVER,FEMALE - Chief complaint Chief Complaint: General - History obtained from History obtained from: Patient - History of Present Illness Timing: Yesterday Pain level max: 7 Pain level now: 5 - Additonal information Additional information: 31-year-old female presents to the emergency department with fever, chills, body aches, cough and congestion. She was seen here 3 days ago and treated for UTI. That urine culture is negative. She started having the fever and body aches this morning. Was concerned about potential pyelonephritis. Decided to come back in for evaluation. No vomiting. Nothing makes it better or worse. 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: Other : None HEENT: Other Psych: Depression, Anxiety Musculoskeletal: Fibromyalgia Derm: None - Past Surgical History Past Surgical History: Yes /TRAUMA SURGEON: section, Tubal ligation - Present Medications Home Medications: Ambulatory Orders Medication Instructions Recorded Confirmed Metoprolol Succinate [Toprol Xl] 50 mg PO BID #120 tablet 10/25/20 07/18/22 Nitrofurantoin [Macrobid] 100 mg PO DAILY #10 cap 07/15/22 07/18/22 Enalapril [Vasotec] 15 mg PO DAILY 07/18/22 07/18/22 - Allergies Allergies/Adverse Reactions: Allergies Allergy/AdvReac Type Severity Reaction Status Date / Time No Known Drug Allergies Allergy Verified 07/18/22 10:47 - Social History Does the pt smoke?: Yes Smoking Status: Current every day smoker Does the pt drink ETOH?: No Does the pt have substance abuse?: No - Immunizations Immunizations are current?: Yes - POLST Patient has POLST: No POLST Status: Full Code PD ED PE NORMAL - Vitals Vital signs reviewed: Yes - General General: Alert and oriented X 3, No acute distress, Well developed/nourished - HEENT HEENT: Moist mucous membranes - Neck Neck: Supple, no meningeal sign - Cardiac Cardiac: RRR - Respiratory Respiratory: No respiratory distress, Clear bilaterally - Abdomen Abdomen: Soft, Non tender, Non distended - Back Back: No CVA TTP, No spinal TTP - Derm Derm: Warm and dry, No rash - Extremities Extremities: No edema, No calf tenderness / cord - Neuro Neuro: Alert and oriented X 3 - Psych Psych: Normal mood, Normal affect Results - Vitals Vitals: Vital Signs - 24 hr 07/18/22 07/18/22 10:43 12:59 Temperature 37.4 C 37.7 C Heart Rate 84 79 Respiratory 16 18 Rate Blood Pressure 152/104 H 138/87 H O2 Saturation 97 96 Oxygen O2 Source Room air - Labs Labs: Laboratory Tests 07/18/22 10:48 Nasal Adenovirus (PCR) NOT DETECTED Nasal B. parapertussis DNA (PCR) NOT DETECTED Nasal Coronavir 229E PCR NOT DETECTED Nasal Coronavir HKU1 PCR NOT DETECTED Nasal Coronavir NL63 PCR NOT DETECTED Nasal Coronavir OC43 PCR NOT DETECTED Nasal Enterovir/Rhinovir PCR NOT DETECTED Nasal Influ A H1 2009 PCR DETECTED A Nasal Influenza B PCR NOT DETECTED Nasal Parainfluen 1 PCR NOT DETECTED Nasal Parainfluen 2 PCR NOT DETECTED Nasal Parainfluen 3 PCR NOT DETECTED Nasal Parainfluen 4 PCR NOT DETECTED Nasal RSV (PCR) NOT DETECTED Nasal B.pertussis DNA PCR NOT DETECTED Nasal C.pneumoniae (PCR) NOT DETECTED Rk Human Metapneumo PCR NOT DETECTED Nasal M.pneumoniae (PCR) NOT DETECTED Nasal SARS-CoV-2 (PCR) NOT DETECTED PD MEDICAL DECISION MAKING - ED course Complexity details: reviewed results, re-evaluated patient, considered differential, d/w patient ED course: Patient is positive for influenza A. We discussed antiviral therapy. She declines this at this time. Offered medication for cough, nausea. Patient declines these as well. We will continue supportive care and have her follow-up with her doctor. Patient is well-appearing, nontoxic. Afebrile. No hypoxia. No respiratory distress. Patient counseled regarding signs and symptoms for which I believe and urgent re-evaluation would be necessary. Patient with good understanding of and agreement to plan and is comfortable going home at this time This document was made in part using voice recognition software. While efforts are made to proofread this document, sound alike and grammatical errors may occur. Departure - Departure Disposition: 01 Home, Self Care Clinical Impression: Influenza A Condition: Good Instructions: ED Flu Follow-Up: Your,doctor in 1 week [Other] Comments: You have tested positive for influenza A today. Please follow-up with your doct or as needed for further care. Return if you worsen. Drink plenty of fluids and rest. You can use Motrin and/or Tylenol as needed for pain and or fever. Forms: Activity restrictions Discharge Date/Time: 07/18/22 13:10
== END 2022-07-18 13:10 | disposition home or self-care (01) ==
LOC: ED 10:35
DX: J09.X2 Influenza due to identified novel influenza A virus with other respiratory manifestations (principal); F17.200 Nicotine dependence, unspecified, uncomplicated; Z20.822 Contact with and (suspected) exposure to COVID-19
CPT/HCPCS: 87633; 99282; 99283

== ENCOUNTER 2022-10-08 21:01 | Emergency (ER) | payer MEDICAID ==
--- NOTE | 2022-10-08 22:31 | XRAY Report ---
PROCEDURE: Chest 2 View X-Ray INDICATIONS: COVID +, cough TECHNIQUE: 2 views of the chest were acquired. COMPARISON: 04/08/2022. FINDINGS: Surgical changes and devices: None. Lungs and pleura: No pleural effusions or pneumothorax. Lungs are clear. Mediastinum: Mediastinal contours are normal. Heart size is normal. Bones and chest wall: No suspicious bony abnormalities. Soft tissues appear unremarkable. IMPRESSION: 1. No acute cardiopulmonary disease. Reviewed by: Jarett Haque MD on 10/08/2022 10:30 PM [facility] Approved by: Jarett Haque MD on 10/08/2022 10:30 PM [facility] Station ID: [id number]
--- NOTE | 2022-10-09 00:57 | ED Physician Documentation ---
History of Present Illness - Stated complaint Stated Complaint: LFT SIDE PX - Chief complaint Chief Complaint: Resp - History obtained from History obtained from: Patient - Additonal information Additional information: 31-year-old woman with history of high blood pressure presents with cough productive of green sputum for the past several days, previously nonproductive since being diagnosed with COVID on 09/24. Patient denies fever but does state that she is having left-sided chest and back pain with her cough. Denies hormone, history of clots, leg swelling, pleurisy, hemoptysis. Review of Systems Constitutional: reports: Fatigue. denies: Fever Cardiac: reports: Chest pain / pressure Respiratory: reports: Cough. 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 HEENT: Other Psych: Depression, Anxiety Musculoskeletal: Fibromyalgia Derm: None - Past Surgical History Past Surgical History: Yes /GRAPHITE GRINDER: section, Tubal ligation - Present Medications Home Medications: Ambulatory Orders Medication Instructions Recorded Confirmed Metoprolol Succinate [Toprol Xl] 50 mg PO BID #120 tablet 10/25/20 07/18/22 Nitrofurantoin [Macrobid] 100 mg PO DAILY #10 cap 07/15/22 07/18/22 Enalapril [Vasotec] 15 mg PO DAILY 07/18/22 07/18/22 Amox/Clav 875/125 [Augmentin 1 tablet PO Q12H 7 Days #14 tablet 10/09/22 875/125 Tab] Codeine Phosphate/Guaifenesin 5 ml PO Q6H PRN #100 ml 10/09/22 [Codeine-Guaifen 10-100 mg/5 ml] - Allergies Allergies/Adverse Reactions: Allergies Allergy/AdvReac Type Severity Reaction Status Date / Time No Known Drug Allergies Allergy Verified 07/18/22 10:47 - Social History Does the pt smoke?: Yes Smoking Status: Current every day smoker Does the pt drink ETOH?: No Does the pt have substance abuse?: No - Immunizations Immunizations are current?: Yes - POLST Patient has POLST: No POLST Status: Full Code PD ED PE NORMAL - Vitals Vital signs reviewed: Yes - General General: Alert and oriented X 3, No acute distress, Well developed/nourished - HEENT HEENT: Atraumatic, PERRL, EOMI - Neck Neck: Supple, no meningeal sign - Cardiac Cardiac: RRR - Respiratory Respiratory: Other (Coarse breath sounds bilateral) - Abdomen Abdomen: Non tender, Non distended - Derm Derm: Normal color, Warm and dry - Neuro Neuro: No motor deficit, No sensory deficit Results - Vitals Vitals: Vital Signs - 24 hr 10/08/22 10/08/22 21:10 22:14 Temperature 37 C Heart Rate 112 H 103 H Respiratory 16 18 Rate Blood Pressure 175/139 H 179/115 H O2 Saturation 97 97 Oxygen O2 Source Room air PD Medical Decision Making - ED course ED course: 31-year-old woman presents with persistent cough for the past 2 weeks, initially nonproductive and now productive of thick pale green sputum. [place] fevers. Chest x-ray without evidence of cardiopulmonary disease but clinically she appears to be suffering from acute bronchitis, likely bacterial in origin after initial viral infection with COVID. Plan to send prescription for expectorant, cough suppressant, and antibiotics to her pharmacy. Return precautions given. Symptomatic care discussed. Plan to follow-up with primary care provider. Departure - Departure Disposition: 01 Home, Self Care Clinical Impression: Cough, Bronchitis Condition: Stable Instructions: Bronchitis Acute Dc Prescriptions: Amox/Clav 875/125 [Augmentin 875/125 Tab] 1 tablet PO Q12H 7 Days #14 tablet Codeine Phosphate/Guaifenesin [Codeine-Guaifen 10-100 mg/5 ml] 5 ml PO Q6H PRN #100 ml PRN Reason: Cough Comments: You were seen in the emergency department for persistent cough concerning for acute bronchitis. Electronic prescriptions were sent to [facility] for cough suppressant, expectorant, and antibiotics. Please return to the emergency department for new or worsening symptoms or other concerns. Make sure you use a cool-mist humidifier by the bedside at nighttime and stay well- hydrated. Get lots of rest. Follow-up with your primary care provider. Forms: Activity restrictions
[2022-10-09] MEDS ORDERED: guaiFENesin/CODEINE 5 ML UDC PO STA (00:59)
[2022-10-09] MEDS ORDERED: AMOX/CLAV 875 MG/125 MG TABLET PO STA (00:59)
[2022-10-09 01:02] VITALS: BP 189/99
== END 2022-10-09 01:08 | disposition home or self-care (01) ==
LOC: ED 21:01
DX: J20.9 Acute bronchitis, unspecified (principal); F17.200 Nicotine dependence, unspecified, uncomplicated
CPT/HCPCS: 71046; 99283; 99284; A9270

== ENCOUNTER 2022-10-30 08:32 | Emergency (ER) | payer MEDICAID ==
[2022-10-30 08:38] VITALS: BP 149/94
[2022-10-30] MEDS ORDERED: cephALEXin 250 MG CAPSULE PO STA (08:46)
[2022-10-30] MEDS ORDERED: SULFAMETH/TRIMETH DS 800/160 MG TABLET PO STA (08:46)
--- NOTE | 2022-10-30 08:53 | ED Physician Documentation ---
PD HPI SKIN - Stated complaint Stated Complaint: FACIAL SWELLING AND REDNESS - Chief complaint Chief Complaint: Wound - History obtained from History obtained from: Patient - Additional information Additional information: The patient comes to the emergency department with chief complaint of painful facial rash on the right that started yesterday. She states she initially just felt pain and noticed a lump in front of her ear and thought she had bumped herself. She has chronic eczema in her right ear but states this is not worse than usual. This morning, she woke up with the right side of her face swollen with some red splotches over her anglican and her lateralmost right maxillary area. No dental pain. She believes this is started from the front of the ear, not from a tooth. No fevers or chills. She does not otherwise feel ill. 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 HEENT: Other Psych: Depression, Anxiety Musculoskeletal: Fibromyalgia Derm: None - Past Surgical History Past Surgical History: Yes /TANK CREWMEMBER: section, Tubal ligation - Present Medications Home Medications: Ambulatory Orders Medication Instructions Recorded Confirmed Metoprolol Succinate [Toprol Xl] 50 mg PO BID #120 tablet 10/25/20 07/18/22 Nitrofurantoin [Macrobid] 100 mg PO DAILY #10 cap 07/15/22 07/18/22 Enalapril [Vasotec] 15 mg PO DAILY 07/18/22 07/18/22 Amox/Clav 875/125 [Augmentin 1 tablet PO Q12H 7 Days #14 tablet 10/09/22 875/125 Tab] Codeine Phosphate/Guaifenesin 5 ml PO Q6H PRN #100 ml 10/09/22 [Codeine-Guaifen 10-100 mg/5 ml] HYDROcod/ACETAM 5/325 [Drums 5/325] 1 - 2 tablet PO Q6H PRN #7 tablet 10/30/22 Sulfamethox/Trimeth 800/160 1 each PO BID #14 tablet 10/30/22 [Bactrim Ds 800/160] cephALEXin [Keflex] 500 mg PO Q6H #28 cap 10/30/22 - Allergies Allergies/Adverse Reactions: Allergies Allergy/AdvReac Type Severity Reaction Status Date / Time No Known Drug Allergies Allergy Verified 10/30/22 08:37 - Social History Does the pt smoke?: Yes Smoking Status: Current every day smoker Does the pt drink ETOH?: No Does the pt have substance abuse?: No - Immunizations Immunizations are current?: Yes - POLST Patient has POLST: No POLST Status: Full Code PD ED PE NORMAL - Vitals Vital signs reviewed: Yes - General General: Alert and oriented X 3, No acute distress, Well developed/nourished - HEENT HEENT: Atraumatic, PERRL, EOMI, Moist mucous membranes, Other (Shotty preauricular lymph node on the right that is tender. Adjacent tissues of the anglican and lateral most maxillary area are edematous with a splotchy erythema, w ithout induration or fluctuance. Tenderness to palpation over same area) - Neck Neck: Supple, no meningeal sign, No adenopathy - Respiratory Respiratory: No respiratory distress - Derm Derm: Warm and dry - Extremities Extremities: No deformity - Neuro Neuro: Alert and oriented X 3 - Psych Psych: Normal mood, Normal affect Results - Vitals Vitals: Vital Signs - 24 hr 10/30/22 08:35 Temperature 35.9 C L Heart Rate 86 Respiratory 20 Rate Blood Pressure 149/94 H O2 Saturation 100 Oxygen O2 Source Room air PD Medical Decision Making - ED course Complexity details: considered differential, d/w patient ED course: I discussed with the patient that I suspect the initial tenderness before development of the skin changes was due to the inflamed and enlarged preauricular lymph node. The patient has chronic eczematous changes in her right ear, and I suspect that this likely seeded infection to the lateral face. I am starting the patient on Bactrim and Keflex for this and have sent a prescription for the same. We have discussed the usual indications for follow- up and return Departure - Departure Disposition: 01 Home, Self Care Clinical Impression: Facial cellulitis Condition: Stable Instructions: ED Cellulitis Facial Prescriptions: Sulfamethox/Trimeth 800/160 [Bactrim Ds 800/160] 1 each PO BID #14 tablet cephALEXin [Keflex] 500 mg PO Q6H #28 cap HYDROcod/ACETAM 5/325 [Drums 5/325] 1 - 2 tablet PO Q6H PRN #7 tablet PRN Reason: Pain Comments: You have been started on antibiotics for what appears to be a skin infection on the side of your face. A prescription for the same has been electronically transmitted to the [facility] pharmacy in [place], along with some prescri ption for pain medication as needed. Please be sure to go straight to the pharmacy to get these medicines, as one of the antibiotics is a 4 times a day antibiotic and needs to be taken again around noon. You may take the other doses in the late afternoon and right before you go to bed. Please take all of the antibiotics as directed, until the course is complete in a week. Please follow-up with your primary care physician for further concerns. Forms: Activity restrictions Discharge Date/Time: 10/30/22 09:05
== END 2022-10-30 09:05 | disposition home or self-care (01) ==
LOC: ED 08:32
DX: L03.211 Cellulitis of face (principal); I10 Essential (primary) hypertension; F17.200 Nicotine dependence, unspecified, uncomplicated
CPT/HCPCS: 99282; 99283; A9270

== ENCOUNTER 2023-02-03 11:59 | Emergency (ER) | payer MEDICAID ==
[2023-02-03] MEDS ORDERED: predniSONE 20 MG TABLET PO STA (12:33)
--- NOTE | 2023-02-03 12:35 | ED Physician Documentation ---
PD HPI UPPER EXT INJURY - Stated complaint Stated Complaint: NECK/SHOULDER PAIN - Chief complaint Chief Complaint: Ext Problem - History obtained from History obtained from: Patient - Additonal information Additional information: The patient comes to the emergency department chief complaint of right shoulder pain that came on spontaneously. She states that she for started to notice it today while at her job at [employer]. She states she frequently lifts heavy loads up to 50 pounds and that she is right-handed. She does not recall a specific injury although she did notice a pain in her elbow a few days ago that seem to shoot up to her right shoulder when she was at work. The patient states that she stayed at work this morning and was trying to do her job but was finally sent home by her boss because she was visibly uncomfortable. She denies numbness or tingling in her distal right upper extremity. No neck pain. She indicates that the pain is mostly over her anterior shoulder. She reports some loss of range of motion. No popping or clicking. No prior history of injury to the this shoulder. 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: section, Tubal ligation - Present Medications Home Medications: Ambulatory Orders Medication Instructions Recorded Confirmed Metoprolol Succinate [Toprol Xl] 50 mg PO BID #120 tablet 10/25/20 02/03/23 Enalapril [Vasotec] 15 mg PO DAILY 07/18/22 02/03/23 predniSONE [Deltasone] 10 mg PO [id number] #42 tab 02/03/23 - Allergies Allergies/Adverse Reactions: Allergies Allergy/AdvReac Type Severity Reaction Status Date / Time No Known Drug Allergies Allergy Verified 02/03/23 12:10 - Social History Does the pt smoke?: Yes Smoking Status: Current every day smoker Does the pt drink ETOH?: No Does the pt have substance abuse?: No - Immunizations Immunizations are current?: Yes - POLST Patient has POLST: No POLST Status: Full Code PD ED PE NORMAL - Vitals Vital signs reviewed: Yes - General General: Alert and oriented X 3, No acute distress, Well developed/nourished - HEENT HEENT: Atraumatic, PERRL, EOMI, Moist mucous membranes - Neck Neck: Supple, no meningeal sign - Cardiac Cardiac: RRR, No murmur, Strong equal pulses - Respiratory Respiratory: No respiratory distress, Clear bilaterally - Abdomen Abdomen: Soft, Non tender, Non distended - Derm Derm: Normal color, Warm and dry, No rash - Extremities Extremities: No deformity, No edema, Other (Mildly limited range of motion of right shoulder including with abduction, internal rotation, external rotation, and forward flexion. Mild tenderness palpation over the anterior shoulder.) - Neuro Neuro: Alert and oriented X 3 - Psych Psych: Normal mood, Normal affect Results - Vitals Vitals: Vital Signs - 24 hr 02/03/23 12:07 Temperature 36.8 C Heart Rate 72 Respiratory 16 Rate Blood Pressure 174/120 H O2 Saturation 100 Oxygen O2 Source Room air - Rads (name of study) Right shoulder x-ray series Relevant Findings:: Final report received, See rad report (Negative) PD Medical Decision Making - ED course Complexity details: reviewed old records, reviewed results, re-evaluated patient, considered differential, d/w patient ED course: The patient was treated symptomatically with prednisone and Toradol in the emergency department and worked up with an x-ray of her shoulder, which was unremarkable. I suspected strain from overuse discussed with the patient that she would most likely need to decrease the amount of lifting she was doing at work. I have written a note for her, stating that she will need to be lifting more than 10 pounds for the next week. The patient is encouraged to follow-up with her primary doctor to establish a more specific plan for her work activity level and any further evaluation and follow-up treatment for her shoulder. We discussed the usual indications for return. I have sent a prescription for prednisone taper to the pharmacy of her choice. Departure - Departure Disposition: 01 Home, Self Care Clinical Impression: Right shoulder strain Qualifiers: Encounter type: initial encounter Qualified Code(s): S46.911A - Strain of unspecified muscle, fascia and tendon at shoulder and upper arm level, right arm, initial encounter Condition: Stable Instructions: ED Sprain Shoulder Prescriptions: predniSONE [Deltasone] 10 mg PO [id number] #42 tab Comments: Your x-ray series looks good today. Most likely, you have strained the soft tissue structures of your shoulder, perhaps from repetitive movements or from heavy lifting. For now, we will place you on a prednisone taper and have you a lso take anti-inflammatory medication to help calm his shoulder down. You may take ibuprofen 600 mg every 6 hours along with the prednisone. Prescription for the prednisone has been electronically transmitted to [facility] pharmacy in [place], your pharmacy of choice on record. Please be sure that you are doing some range of motion movements with your shoulder to keep it from freezing up. A work note has been provided, requesting that they have you lift no more than 10 pounds at a time for the next week. Please schedule a follow-up appointment first thing tomorrow with your primary doctor, to be seen in follow-up sometime in the next few weeks in case symptoms are not improving. Forms: Activity restrictions
[2023-02-03] MEDS ORDERED: KETOROLAC 60 MG/2 ML VIAL IM STA (12:36)
--- NOTE | 2023-02-03 12:51 | XRAY Report ---
PROCEDURE: Shoulder 3 View RT INDICATIONS: pain TECHNIQUE: 3 views of the shoulder were acquired. COMPARISON: None. FINDINGS: Bones: No fractures or dislocations. No suspicious bony lesions. Visualized ribs appear intact. Soft tissues: No suspicious soft tissue calcifications. IMPRESSION: No acute fracture. No osseous lesion. If symptoms and/or clinical suspicion for patholog y continue, further assessment with repeat plain films, or advanced imaging (e.g., CT, MRI, or bone s can) is recommended for further assessment. Reviewed by: Mojgan Ni MD on 02/03/2023 12:50 PM PDT Approved by: Mojgan Ni MD on 02/03/2023 12:50 PM PDT Station ID: [id number]
[2023-02-03 13:51] VITALS: BP 170/114
== END 2023-02-03 13:35 | disposition home or self-care (01) ==
LOC: ED 11:59
DX: S46.911A Strain of unspecified muscle, fascia and tendon at shoulder and upper arm level, right arm, initial encounter (principal); X58.XXXA Exposure to other specified factors, initial encounter; Y99.0 Civilian activity done for income or pay; I10 Essential (primary) hypertension; F17.200 Nicotine dependence, unspecified, uncomplicated
CPT/HCPCS: 73030; 96372; 99283; J7512

== ENCOUNTER 2023-03-28 04:56 | Emergency (ER) | payer MEDICAID ==
[~2023-03-28 04:56] MED LIST: cloNIDine 0.1 MG TABLET ONE
[2023-03-28 05:25] LABS: B. PARAPERTUSSIS- RESP PCR PAN NOT DETECTED; B. PERTUSSIS- RESP PCR PANEL NOT DETECTED; C. PNEUMONIAE- RESP PCR PANEL NOT DETECTED; CORONAVIRUS 229E-RESP PCR NOT DETECTED; CORONAVIRUS HKU1-RESP PCR NOT DETECTED; CORONAVIRUS NL63-RESP PCR NOT DETECTED; CORONAVIRUS OC43-RESP PCR NOT DETECTED; HUMAN METAPNEUMOVIRUS NOT DETECTED; INFLUENZA A- RESP PCR PANEL NOT DETECTED; INFLUENZA B - RESP PCR PANEL NOT DETECTED; M. PNEUMONIAE- RESP PCR PANEL NOT DETECTED; PARAINFLUENZA VIRUS 1 NOT DETECTED; PARAINFLUENZA VIRUS 2 NOT DETECTED; PARAINFLUENZA VIRUS 3 NOT DETECTED; PARAINFLUENZA VIRUS 4 NOT DETECTED; RHINOVIRUS/ENTEROVIRUS NOT DETECTED; RSV- RESP PCR PANEL NOT DETECTED; SARS-CoV-2 -RESP PCR PANEL NOT DETECTED
[2023-03-28 05:33] VITALS: BP 174/141; O2SAT 99
--- NOTE | 2023-03-28 06:54 | ED Physician Documentation ---
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 HEENT: Other Psych: Depression, Anxiety Musculoskeletal: Fibromyalgia Derm: None - Past Surgical History Past Surgical History: Yes /TRUCK SPOTTER: section, Tubal ligation - Present Medications Home Medications: Ambulatory Orders Medication Instructions Recorded Confirmed Metoprolol Succinate [Toprol Xl] 50 mg PO BID #120 tablet 10/25/20 03/28/23 Enalapril [Vasotec] 15 mg PO TID 07/18/22 03/28/23 - Allergies Allergies/Adverse Reactions: Allergies Allergy/AdvReac Type Severity Reaction Status Date / Time No Known Drug Allergies Allergy Verified 03/28/23 05:32 - Social History Does the pt smoke?: Yes Smoking Status: Current every day smoker Does the pt drink ETOH?: No Does the pt have substance abuse?: No - Immunizations Immunizations are current?: Yes - POLST Patient has POLST: No POLST Status: Full Code Results - Vitals Vitals: Vital Signs - 24 hr 03/28/23 05:00 Temperature 37.1 C Heart Rate 92 Respiratory 16 Rate Blood Pressure 174/141 H O2 Saturation 99 Oxygen O2 Source Room air - Labs Labs: Laboratory Tests 03/28/23 02:59 Nasal Adenovirus (PCR) NOT DETECTED Nasal B. parapertussis DNA (PCR) NOT DETECTED Nasal Coronavir 229E PCR NOT DETECTED Nasal Coronavir HKU1 PCR NOT DETECTED Nasal Coronavir NL63 PCR NOT DETECTED Nasal Coronavir OC43 PCR NOT DETECTED Nasal Enterovir/Rhinovir PCR NOT DETECTED Nasal Influenza B PCR NOT DETECTED Nasal Influenza A PCR NOT DETECTED Nasal Parainfluen 1 PCR NOT DETECTED Nasal Parainfluen 2 PCR NOT DETECTED Nasal Parainfluen 3 PCR NOT DETECTED Nasal Parainfluen 4 PCR NOT DETECTED Nasal RSV (PCR) NOT DETECTED Nasal B.pertussis DNA PCR NOT DETECTED Nasal C.pneumoniae (PCR) NOT DETECTED Rk Human Metapneumo PCR NOT DETECTED Nasal M.pneumoniae (PCR) NOT DETECTED Nasal SARS-CoV-2 (PCR) NOT DETECTED PD Medical Decision Making - ED course ED course: SEE PAPER CHART ([facility]) Departure - Departure Disposition: 01 Home, Self Care Clinical Impression: Viral URI Hypertension Qualifiers: Hypertension type: primary hypertension Qualified Code(s): I10 - Essential (primary) hypertension Condition: Good Instructions: ED Hypertension Conf Out Of Control, ED URI Viral Forms: PCP List Discharge Date/Time: 03/28/23 05:00
== END 2023-03-28 05:00 | disposition home or self-care (01) ==
LOC: ED 04:56
DX: J06.9 Acute upper respiratory infection, unspecified (principal); I10 Essential (primary) hypertension; F17.200 Nicotine dependence, unspecified, uncomplicated; Z20.822 Contact with and (suspected) exposure to COVID-19
CPT/HCPCS: 87633; 99283; 99284; A9270

== ENCOUNTER 2023-04-13 19:16 | Emergency (ER) | payer MEDICAID ==
[2023-04-13 19:32] VITALS: BP 170/121; O2SAT 98
[2023-04-13] MEDS ORDERED: HYDROcod/ACET 5/325 Prepack 4 PO STA (19:41)
[2023-04-13] MEDS ORDERED: SULFAMETH/TRIMETH DS 800/160 MG TABLET PO STA (19:41)
[2023-04-13] MEDS ORDERED: cephALEXin 250 MG CAPSULE PO STA (19:41)
--- NOTE | 2023-04-13 20:05 | ED Physician Documentation ---
History of Present Illness - Stated complaint Stated Complaint: L SIDE FACE PX/SWELLING - Chief complaint Chief Complaint: General - History obtained from History obtained from: Patient - History of Present Illness Timing: Today Pain level max: 3 Pain level now: 3 - Additonal information Additional information: 32-year-old female presents to the emergency department stating that she has eczema to the left ear. She states she has had increasing redness, swelling and now having some pain going down to the left jaw. Nothing makes it better or worse. No fevers. No chills. Denies any possibility of . No dental pain. Feels similar to prior episodes of cellulitis. 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 ligation - Present Medications Home Medications: Ambulatory Orders Medication Instructions Recorded Confirmed Metoprolol Succinate [Toprol Xl] 50 mg PO BID #120 tablet 10/25/20 03/28/23 Enalapril [Vasotec] 15 mg PO TID 07/18/22 03/28/23 HYDROcod/ACETAM 5/325 [[place] 5/325] 1 - 2 ea PO Q6H PRN #10 tablet 04/13/23 Sulfamethox/Trimeth 800/160 1 each PO BID #14 tablet 04/13/23 [Bactrim Ds 800/160] cephALEXin [Keflex] 500 mg PO Q6H #28 cap 04/13/23 - Allergies Allergies/Adverse Reactions: Allergies Allergy/AdvReac Type Severity Reaction Status Date / Time No Known Drug Allergies Allergy Verified 03/28/23 05:32 - Social History Does the pt smoke?: Yes Smoking Status: Current every day smoker Does the pt drink ETOH?: No Does the pt have substance abuse?: No - Immunizations Immunizations are current?: Yes - POLST Patient has POLST: No POLST Status: Full Code PD ED PE NORMAL - Vitals Vital signs reviewed: Yes - General General: Alert and oriented X 3, No acute distress - HEENT HEENT: Moist mucous membranes, Other (Eczema to the left ear. There is mild erythema as well. There is no lymphangitis. There is no mastoid tenderness. There is no tenderness behind the ear. No drainage.) - Neck Neck: Supple, no meningeal sign - Derm Derm: Warm and dry - Neuro Neuro: Alert and oriented X 3 - Psych Psych: Normal mood, Normal affect Results - Vitals Vitals: Vital Signs - 24 hr 04/13/23 04/13/23 19:23 20:30 Temperature 36.8 C Heart Rate 107 H Respiratory 16 16 Rate Blood Pressure 170/121 H O2 Saturation 98 98 Oxygen O2 Source Room air PD Medical Decision Making - ED course Complexity details: considered differential, d/w patient ED course: Patient with eczema to the left ear, appears to be secondarily infected, will place on Bactrim and Keflex. We will have her follow-up closely with her PCP for further care. We will place on pain medication as well. Patient counseled regarding signs and symptoms for which I believe and urgent re-evaluation would be necessary. Patient with good understanding of and agreement to plan and is comfortable going home at this time This document was made in part using voice recognition software. While efforts are made to proofread this document, sound alike and grammatical errors may occu r. Departure - Departure Disposition: 01 Home, Self Care Clinical Impression: Cellulitis Qualifiers: Site of cellulitis: unspecified site Qualified Code(s): L03.90 - Cellulitis, unspecified Condition: Good Instructions: ED Infec Skin Cellulitis Follow-Up: your,doctor in 1 week [Other] Prescriptions: Sulfamethox/Trimeth 800/160 [Bactrim Ds 800/160] 1 each PO BID #14 tablet cephALEXin [Keflex] 500 mg PO Q6H #28 cap HYDROcod/ACETAM 5/325 [Meridian 5/325] 1 - 2 ea PO Q6H PRN #10 tablet PRN Reason: Pain Comments: Your prescriptions were sent to the [facility] in [place]. Please take all antibiotics until gone. Please return if you worsen. I am prescribing a short course of narcotic pain medication for you. These are potentially dangerous and addictive medications that should be used carefully. These medications may constipate you. Take an nwis-cuv-saryycy stool softener (docusate) twice daily with plenty of water while taking these medications. If you go 24 hours without a bowel movement, take [id number] miralax, per package instructions. Do not drink or drive while taking these medications. If you received narcotic or sedating medications while in the emergency department, do not drive for 24 hours. Store this medication in a safe, secure place and out of reach of children. It is a violation of federal law to give or sell this medication to another person or to use in a manner other than prescribed. The ED will not refill narcotic prescriptions, including prescriptions lost or stolen. To dispose of unwanted medications: 1. [facility] [address] [facility] in [place] has a medication drop box. They accept prescription medications (in pill form) Saturday through Saturday 9:00 a.m. to 5:00 p.m. 2. The [facility] accepts prescription medications (in pill form only) for disposal year round. Call for more informatio n. 3. Contact the [facility] for the next [facility] sponsored prescription drug collection event. , [phone], or [phone]; Forms: PCP List Discharge Date/Time: 04/13/23 20:30
== END 2023-04-13 20:30 | disposition home or self-care (01) ==
LOC: ED 19:16
DX: L03.90 Cellulitis, unspecified (principal); F17.200 Nicotine dependence, unspecified, uncomplicated
CPT/HCPCS: 99282; 99283; A9270

== ENCOUNTER 2023-07-23 13:25 | Emergency (ER) | payer MEDICAID ==
[2023-07-23 13:50] VITALS: BP 177/138; O2SAT 100
[2023-07-23] MEDS ORDERED: cephALEXin 250 MG CAPSULE PO STA (14:06)
[2023-07-23] MEDS ORDERED: SULFAMETH/TRIMETH DS 800/160 MG TABLET PO STA (14:06)
[2023-07-23] MEDS ORDERED: oxyCODONE 5 MG TABLET PO STA (14:06)
--- NOTE | 2023-07-23 14:10 | ED Physician Documentation ---
History of Present Illness - Stated complaint Stated Complaint: RT EAR/FACE PX - Chief complaint Chief Complaint: Heent - History obtained from History obtained from: Patient - Additonal information Additional information: Patient is a 32-year-old female presenting for evaluation of redness and swelling to the right lower earlobe that has been present for the past 2 to 3 days. She reports this morning there was some drainage from the area. She has a history of eczema and often has flaky skin and has had recurrent skin infections to the face. Reports having responded well to oral antibiotics in the past. Denies fever. Denies pain inside the ear. 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 HEENT: Other Psych: Depression, Anxiety Musculoskeletal: Fibromyalgia Derm: None - Past Surgical History Past Surgical History: Yes /STRAIGHT LINE PRESS SETTER: section, Tubal ligation - Present Medications Home Medications: Ambulatory Orders Medication Instructions Recorded Confirmed Metoprolol Succinate [Toprol Xl] 50 mg PO BID #120 tablet 10/25/20 03/28/23 Enalapril [Vasotec] 15 mg PO TID 07/18/22 03/28/23 HYDROcod/ACETAM 5/325 [[place] 5/325] 1 - 2 ea PO Q6H PRN #10 tablet 04/13/23 Sulfamethox/Trimeth 800/160 1 each PO BID #14 tablet 04/13/23 [Bactrim Ds 800/160] cephALEXin [Keflex] 500 mg PO Q6H #28 cap 04/13/23 Sulfamethox/Trimeth 800/160 1 each PO BID #14 tablet 07/23/23 [Bactrim Ds 800/160] cephALEXin [Keflex] 500 mg PO Q6H #28 cap 07/23/23 - Allergies Allergies/Adverse Reactions: Allergies Allergy/AdvReac Type Severity Reaction Status Date / Time No Known Drug Allergies Allergy Verified 07/23/23 13:44 - Social History Does the pt smoke?: Yes Smoking Status: Current every day smoker Does the pt drink ETOH?: No Does the pt have substance abuse?: No - Immunizations Immunizations are current?: Yes - POLST Patient has POLST: No POLST Status: Full Code PD ED PE NORMAL - General General: Alert and oriented X 3, No acute distress, Well developed/nourished - HEENT HEENT: Atraumatic, Moist mucous membranes, Pharynx benign, Other (Mild redness and swelling to right lower earlobe, no fluctuance to suggest abscess, dry flaky skin over bilateral ears and face, ear canals and TMs are normal bilaterally with no signs of otitis externa or otitis media; No mastoid tenderness) - Neck Neck: Supple, no meningeal sign - Neuro Neuro: Normal speech Results - Vitals Vitals: Vital Signs - 24 hr 07/23/23 13:41 Temperature 37 C Heart Rate 95 Respiratory 16 Rate Blood Pressure 177/138 H O2 Saturation 100 Oxygen O2 Source Room air PD Medical Decision Making - ED course ED course: Patient with findings of cellulitis. No signs of abscess. Has had recurrent episodes in the past that responded well to p.o. antibiotics. Patient is agreeable to treatment plan with oral antibiotics as well as advised on concerning symptoms to return for. Departure - Departure Disposition: 01 Home, Self Care Clinical Impression: Cellulitis of right ear Condition: Stable Instructions: ED Cellulitis Facial Prescriptions: Sulfamethox/Trimeth 800/160 [Bactrim Ds 800/160] 1 each PO BID #14 tablet cephALEXin [Keflex] 500 mg PO Q6H #28 cap Comments: I have sent your prescriptions to treat your skin infection to [facility] in [place]. Please continue acetaminophen or ibuprofen as needed for pain. Return to the ER with any worsening symptoms such as increased swelling. Forms: PCP List, Activity restrictions Discharge Date/Time: 07/23/23 14:29
== END 2023-07-23 14:29 | disposition home or self-care (01) ==
LOC: ED 13:25
DX: H60.11 Cellulitis of right external ear (principal); F17.200 Nicotine dependence, unspecified, uncomplicated
CPT/HCPCS: 99282; 99283; A9270

== ENCOUNTER 2023-08-16 16:32 | Emergency (ER) | payer SELFPAY ==
[2023-08-16 16:52] VITALS: O2SAT 100
--- NOTE | 2023-08-16 16:59 | ED Physician Documentation ---
PD HPI WOUND RECHECK - Stated complaint Stated Complaint: RT EAR SWELLING/BUMP - Chief complaint Chief Complaint: Wound - Histroy obtained from History obtained from: Patient - Additional information Additional information: She has a history of psoriasis. She has painful infected psoriasis in the right ear and went to the urgent care for this where she was noted to have mastoid tenderness which is actually lymphadenopathy over the mastoid and sent here for concern for mastoiditis. No fevers. 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 : None HEENT: Other Psych: Depression, Anxiety Musculoskeletal: Fibromyalgia Derm: None - Past Surgical History Past Surgical History: Yes /CLINICAL REIMBURSEMENT SPECIALIST: section, Tubal ligation - Present Medications Home Medications: Ambulatory Orders Medication Instructions Recorded Confirmed Metoprolol Succinate [Toprol Xl] 50 mg PO BID #120 tablet 10/25/20 03/28/23 Enalapril [Vasotec] 15 mg PO TID 07/18/22 03/28/23 HYDROcod/ACETAM 5/325 [[place] 5/325] 1 - 2 ea PO Q6H PRN #10 tablet 04/13/23 Sulfamethox/Trimeth 800/160 1 each PO BID #14 tablet 04/13/23 [Bactrim Ds 800/160] cephALEXin [Keflex] 500 mg PO Q6H #28 cap 04/13/23 Sulfamethox/Trimeth 800/160 1 each PO BID #14 tablet 07/23/23 [Bactrim Ds 800/160] cephALEXin [Keflex] 500 mg PO Q6H #28 cap 07/23/23 HYDROcod/ACETAM 5/325 [[place] 5/325] 1 - 2 tab PO Q6H PRN #15 tablet 08/16/23 Neomycin/Polymyx/Hc Otic Drops 4 drops OT TID #1 each 08/16/23 [Cortisporin Ear Susp] clindamycin HCL [Cleocin HCl] 300 mg PO QID #28 cap 08/16/23 - Allergies Allergies/Adverse Reactions: Allergies Allergy/AdvReac Type Severity Reaction Status Date / Time No Known Drug Allergies Allergy Verified 07/23/23 13:44 - Social History Does the pt smoke?: Yes Smoking Status: Current every day smoker Does the pt drink ETOH?: No Does the pt have substance abuse?: No - Immunizations Immunizations are current?: Yes - POLST Patient has POLST: No POLST Status: Full Code PD ED PE NORMAL - Vitals Vital signs reviewed: Yes - General General: Alert and oriented X 3, No acute distress - HEENT HEENT: Other (She has pretty significant psoriasis inside the ear and canal with some inflamed retroauricular lymph nodes on the right. There is no redness or swelling that would be consistent with mastoiditis.) - Neuro Neuro: Alert and oriented X 3, Normal speech Results - Vitals Vitals: Vital Signs - 24 hr 08/16/23 16:42 Temperature 36.7 C Heart Rate 83 Respiratory 16 Rate Blood Pressure 205/147 H O2 Saturation 100 Oxygen O2 Source Room air PD Medical Decision Making - ED course ED course: She was sent here from the urgent care for concern for mastoiditis but which she has a superinfected psoriasis inside the ear canal with retroauricular adenopathy. Departure - Departure Disposition: Home, Self Care Clinical Impression: Psoriasis, Lymphadenopathy Condition: Good Record reviewed to determine appropriate education?: Yes Instructions: ED Psoriasis Prescriptions: clindamycin HCL [Cleocin HCl] 300 mg PO QID #28 cap Neomycin/Polymyx/Hc Otic Drops [Cortisporin Ear Susp] 4 drops OT TID #1 each HYDROcod/ACETAM 5/325 [[place] 5/325] 1 - 2 tab PO Q6H PRN #15 tablet PRN Reason: Pain Comments: I sent your prescriptions electronically to the [facility] in [place]. As discussed, this looks like you have superinfected psoriasis in your right ear which is cause lymphadenopathy behind the ear. This should get better with the treatments. Is not unreasonable to follow-up with a epic kaleidoscope analyst, return for new or worsening symptoms. I am prescribing a short course of narcotic pain medication for you. These are potentially dangerous and addictive medications that should be used carefully. These medications may constipate you. Take an zlla-nhl-hqfdhvz stool softener (docusate) twice daily with plenty of water while taking these medications. If you go 24 hours without a bowel movement, take cowq-lwb-yirjrhi miralax, per package instructions. Do not drink or drive while taking these medications. If you received narcotic or sedating medications while in the emergency department, do not drive for 24 hours. Store this medication in a safe, secure place and out of reach of children. It is a violation of federal law to give or sell this medication to another person or to use in a manner other than prescribed. The ED will not refill narcotic prescriptions, including prescriptions lost or stolen. To dispose of unwanted medications: 1. [facility] provides a drop box for medication in pill form only (no liquids) 8:00 am to 4:30 p.m. Saturday-Saturday in the lobby of the [facility], [address] [place] [address]. Empty pills into ziplock bag before disposal. Call [phone] for information. 2.[facility] is a free service available to all [facility] residents. Go to [email or web address] Note that many narcotic pain relievers also contain Tylenol/acetaminophen. Please ensure that your total dose of acetaminophen from all sources does not exceed 3 g (3000 mg) per day. Forms: PCP List
[2023-08-16 17:10] VITALS: BP 186/130
== END 2023-08-16 17:06 | disposition home or self-care (01) ==
LOC: ED 16:32
DX: R59.0 Localized enlarged lymph nodes (principal); L40.9 Psoriasis, unspecified; F17.200 Nicotine dependence, unspecified, uncomplicated
CPT/HCPCS: 99283; 99284

== ENCOUNTER 2024-02-22 07:12 | Emergency (ER) | payer OTHER ==
[2024-02-22 07:36] VITALS: BP 141/111; O2SAT 99
--- NOTE | 2024-02-22 07:46 | ED Physician Documentation ---
PD HPI WOUND RECHECK - Stated complaint Stated Complaint: LT FINGER STITCH FOLLOW UP - Chief complaint Chief Complaint: Wound - Histroy obtained from History obtained from: Patient - History of Present Illness Location: Left Hand (she had finger injury/laceration 11 days ago with sutures here. Instructions for 12-14 days for removal. Started with redness, swelling of finger at sutures 2 days ago and has worsened. Small pustule appearing at one of the suture holes. 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 HEENT: Other Psych: Depression, Anxiety Musculoskeletal: Fibromyalgia Derm: None - Past Surgical History Past Surgical History: Yes /PLANT NURSERY WORKER: section, Tubal ligation - Present Medications Home Medications: Ambulatory Orders Medication Instructions Recorded Confirmed Metoprolol Succinate [Toprol Xl] 50 mg PO BID #120 tablet 10/25/20 02/11/24 Enalapril [Vasotec] 15 mg PO TID 07/18/22 02/11/24 Oxycodone HCl/Acetaminophen 1 - 2 each PO Q6H PRN #8 tablet 02/11/24 [Percocet 5-325 mg Tablet] Chlorhexidine Gluconate [Hibiclens] 15 ml TP DAILY #236 ml 02/22/24 Doxycycline Hyclate 100 mg PO BID 7 Days #14 cap 02/22/24 HYDROcod/ACETAM 5/325 [[place] 5/325] 1 ea PO Q6H PRN #12 tablet 02/22/24 Mupirocin 2% Oint [Bactroban 2% 1 applic TOP TID #15 gm 02/22/24 Oint] - Allergies Allergies/Adverse Reactions: Allergies Allergy/AdvReac Type Severity Reaction Status Date / Time No Known Drug Allergies Allergy Verified 02/22/24 07:35 - Social History Does the pt smoke?: Yes Smoking Status: Current every day smoker Does the pt drink ETOH?: No Does the pt have substance abuse?: No - Immunizations Immunizations are current?: Yes - POLST Patient has POLST: No POLST Status: Full Code PD ED PE NORMAL - Vitals Vital signs reviewed: Yes - General General: Alert and oriented X 3, Well developed/nourished - Derm Derm: Normal color, Warm and dry - Extremities Extremities: Other (left finger tip with sutures in place. wound edges adhered. The finger has redness and swelling around the edge. There is a pustule noted which is centered around stitch entrance into skin. ) - Neuro Neuro: No motor deficit, No sensory deficit Results - Vitals Vitals: Vital Signs - 24 hr 02/22/24 07:34 Temperature 36.6 C Heart Rate 101 H Respiratory 20 Rate Blood Pressure 141/111 H O2 Saturation 99 Oxygen O2 Source Room air - Labs Labs: Microbiology 02/22/24 08:09 Wound Culture - Preliminary Finger - Left Middle PD Medical Decision Making - ED course Complexity details: reviewed old records (prior visit and record of the wound. ), considered differential (has had now few days of increasing red/swelling around wound of finger, and small pustule around the entry point of one of the sutures. ), d/w patient ED course: small swapna at pustule after I removed the sutures. 2-3 small drops of purulence came out and I cultured it. Presume staph. Can treat for wound infection/ stitch abscess with doxycyccline, mupirocin and hiblens for body cleaning. Rx pain meds short term. Departure - Departure Disposition: 01 Home, Self Care Clinical Impression: Finger infection, Wound abscess Condition: Stable Record reviewed to determine appropriate education?: Yes Instructions: ED Staph Infec Abx Tx Only Prescriptions: Mupirocin 2% Oint [Bactroban 2% Oint] 1 applic TOP TID #15 gm Doxycycline Hyclate 100 mg PO BID 7 Days #14 cap Chlorhexidine Gluconate [Hibiclens] 15 ml TP DAILY #236 ml HYDROcod/ACETAM 5/325 [Aldrich 5/325] 1 ea PO Q6H PRN #12 tablet PRN Reason: Pain Comments: This does look like an abscess infection. The introduction point may have been through the sutures as the main center of the [address] The sutures are out and I did do a small swapna in the pustule. Try to promote drainage of that with warm moist compresses or soaks and gentle massaging around it. Meanwhile we will treat it with doxycycline antibiotic and mupirocin topical antibiotic ointment as well as chlorhexidine body wash to decrease the load on the skin so is less likely to satellite. Tylenol and/or ibuprofen for pains. I prescribed hydrocodone to use every 4-6 hours if needed in the short-term. We did do a culture of the purulence. This should result in a couple of days and we will call you if we need to modify the antibiotic choice based on that. I would anticipate improvement over the next few days and resolution of it. Return if not improving well or worsening. I sent new prescriptions to your preferred pharmacy. I am prescribing a short course of narcotic pain medication for you. These are potentially dangerous and addictive medications that should be used carefully. These medications may constipate you. Take an bmaw-pym-qzuqxlu stool softener such as docusate twice daily with plenty of water while taking these medications. If you go 24 hours without a bowel movement, take bbfm-lse-zycgwge MiraLAX, per package instructions. Do not drink or drive while taking these medications. If you received narcotic or sedating medications while in the emergency department do not drive for 24 hours. Store this medication in a safe, secure place and out of reach of children. It is a violation of federal law to give or sell this medication to another person or to use in a manner other than prescribed. The ED will not refill narcotic prescriptions, including prescriptions lost or stolen. You can dispose of unwanted medications at the [facility]'s office or at several pharmacies such as [facility]. Forms: PCP List Discharge Date/Time: 02/22/24 09:01
[2024-02-22] MEDS: ACETAMINOPHEN 325 MG TABLET PO STA (08:57)
[2024-02-22] MEDS: IBUPROFEN 600 MG TABLET PO STA (08:58)
[2024-02-22] MEDS: DOXYCYCLINE 100 MG TABLET PO STA (08:58)
== END 2024-02-22 09:01 | disposition home or self-care (01) ==
LOC: ED 07:12
DX: L02.512 Cutaneous abscess of left hand (principal); S61.219D Laceration without foreign body of unspecified finger without damage to nail, subsequent encounter; X58.XXXD Exposure to other specified factors, subsequent encounter; F17.200 Nicotine dependence, unspecified, uncomplicated
CPT/HCPCS: 26010; 87070; 87077; 87181; 87205; 99283; A9270

== ENCOUNTER 2025-08-07 14:36 | Inpatient (IN) ==
--- OUTSIDE RECORDS SUMMARY | 2025-08-07 14:44 | EXTERNAL MEDICAL SUMMARY RPT | Continuity of Care Document ---
Author Organization [facility] Address [address] [place] [id number] Phone Allergies and Intolerances date description facility reaction severity 2024-12-09 10:00 [id number]^No Known Drug Allergies^^No Known Drug Allergies^^allergy.id [facility] (no reaction) (no severity) 2025-05-28 10:00 [id number]^No Known Drug Allergies^^No Known Drug Allergies^^allergy.id [facility] (no reaction) (no severity) 2025-06-05 10:00 [id number]^No Known Drug Allergies^^No Known Drug Allergies^^allergy.id [facility] (no reaction) (no severity) 2025-06-11 10:00 [id number]^No Known Drug Allergies^^No Known Drug Allergies^^allergy.id [facility] (no reaction) (no severity) Problems date description facility 2025-05-28 21:43 Imaging @ [place] [facility] @ Ultrasonography @ Internal Carotid Arteries, Bilateral [facility] 2025-06-01 10:22 Imaging @ [place] [facility] @ Ultrasonography @ Internal Carotid Arteries, Bilateral [facility] 2025-06-01 10:22 Cough, unspecified [facility] 2025-06-01 10:22 Other general symptoms and sign s [facility] 2025-06-05 04:42 Wheezing [facility] 2025-06-05 04:58 Wheezing [facility] 2025-06-08 09:29 Cough, unspecified [facility] 2025-06-08 09:29 Shortness of breath [facility] 2025-06-08 09:29 Wheezing [facility] 2025-06-08 09:29 Other chest pain [facility] 2025-06-11 10:28 Cough, unspecified [facility] 2025-06-11 10:28 Shortness of breath [facility] 2025-06-11 10:28 Chest pain, unspecified [facility] 2025-06-11 10:28 [facility] 2025-06-11 16:01 [facility]neumonia, [facility] Results/Labs test date facility value unit notes Result panel 1 RHINOVIRUS/ENTEROVIRUS 2025-05-28 19:25 [facility] DETECTED (missing) Human Rhinovirus/Enterovirus detected by the [facility] [employer] RP2.1 Panel, a multiplexed nucleic acid test intended for the simultaneous qualitative detection and differentiation of nucleic acids from multiple viral and bacterial respiratory organisms. SARS-CoV-2 -RESP PCR PANEL 2025-05-28 19:25 [facility] NOT DETECTED (missing) A negative test result for this test indicates that SARS-CoV-2 RNA was not present in the specimen above the limit of detection. Testing performed on the [employer] RP2.1 Panel, a multiplexed nucleic acid repiratory panel. Negative results do not preclude infection with SARS-CoV-2 virus and should not be the sole basis of a patient management decision. In some patients repeat testing at various time points may be necessary for virus detection. False-negative results may arise from improper sample collection, degradation of viral RNA during shipping or storage, the presence of PCR inhibitors, and/or mutation in the SARS-CoV-2 virus. INFLUENZA A- RESP PCR PANEL 2025-05-28 19:25 [facility] NOT DETECTED (missing) Influenza A including subtypes H1, H3, and H1-2009 not detected by the [employer] RP2.1 Panel, a multiplexed nucleic acid test intended for the simultaneous qualitative detection and differentiation of nucleic acids from multiple viral and bacterial respiratory organisms. B. PARAPERTUSSIS- RESP PCR [facility] 2025-05-28 19:25 [facility] NOT DETECTED (missing) Negative results for this organism do not preclude infection with this organism and may require additional laboratory testing (e.g., bacterial and viral culture, immunofluorescence, and radiography) when evaluating a patient with possible respiratory tract infection. B. PERTUSSIS- RESP PCR PANEL 2025-05-28 19:25 [facility] NOT DETECTED (missing) Negative results for this organism do not preclude infection with this organism and may require additional laboratory testing (e.g., bacterial and viral culture, immunofluorescence, and radiography) when evaluating a patient with possible respiratory tract infection. C. PNEUMONIAE- RESP PCR PANEL 2025-05-28 19:25 [facility] NOT DETECTED (missing) Negative results for this organism do not preclude infection with this organism and may require additional laboratory testing (e.g., bacterial and viral culture, immunofluorescence, and radiography) when evaluating a patient with possible respiratory tract infection. M. PNEUMONIAE- RESP PCR PANEL 2025-05-28 19:25 [facility] NOT DETECTED (missing) Negative results for this organism do not preclude infection with this organism and may require additional laboratory testing (e.g., bacterial and viral culture, immunofluorescence, and radiography) when evaluating a patient with possible respiratory tract infection. CORONAVIRUS 229E-RESP PCR 2025-05-28 19:25 [facility] NOT DETECTED (missing) Negative results in the setting ofa respiratory illness may be due to infection with pathogens not detected by this test, or lower respiratory tract infection that may not be detected by nasopharyngeal specimen. CORONAVIRUS HKU1-RESP PCR 2025-05-28 19:25 [facility] NOT DETECTED (missing) Negative results in the setting ofa respiratory illness may be due to infection with pathogens not detected by this test, or lower respiratory tract infection that may not be detected by nasopharyngeal specimen. CORONAVIRUS MM96-ODJP PCR 2025-05-28 19:25 [facility] NOT DETECTED (missing) Negative results in the setting ofa respiratory illness may be due to infection with pathogens not detected by this test, or lower respiratory tract infection that may not be detected by nasopharyngeal specimen. CORONAVIRUS ML96-GNBC PCR 2025-05-28 19:25 [facility] NOT DETECTED (missing) Negative results in the setting ofa respiratory illness may be due to infection with pathogens not detected by this test, or lower respiratory tract infection that may not be detected by nasopharyngeal specimen. HUMAN METAPNEUMOVIRUS 2025-05-28 19:25 [facility] NOT DETECTED (missing) Negative results in the setting ofa respiratory illness may be due to infection with pathogens not detected by this test, or lower respiratory tract infection that may not be detected by nasopharyngeal specimen. INFLUENZA B - RESP PCR PANEL 2025-05-28 19:25 [facility] NOT DETECTED (missing) Negative results in the setting ofa respiratory illness may be due to infection with pathogens not detected by this test, or lower respiratory tract infection that may not be detected by nasopharyngeal specimen. PARAINFLUENZA VIRUS 1 2025-05-28 19:25 [facility] NOT DETECTED (missing) Negative results in the setting ofa respiratory illness may be due to infection with pathogens not detected by this test, or lower respiratory tract infection that may not be detected by nasopharyngeal specimen. PARAINFLUENZA VIRUS 2 2025-05-28 19:25 [facility] NOT DETECTED (missing) Negative results in the setting ofa respiratory illness may be due to infection with pathogens not detected by this test, or lower respiratory tract infection that may not be detected by nasopharyngeal specimen. PARAINFLUENZA VIRUS 3 2025-05-28 19:25 [facility] NOT DETECTED (missing) Negative results in the setting ofa respiratory illness may be due to infection with pathogens not detected by this test, or lower respiratory tract infection that may not be detected by nasopharyngeal specimen. PARAINFLUENZA VIRUS 4 2025-05-28 19:25 [facility] NOT DETECTED (missing) Negative results in the setting ofa respiratory illness may be due to infection with pathogens not detected by this test, or lower respiratory tract infection that may not be detected by nasopharyngeal specimen. RSV- RESP PCR PANEL 2025-05-28 19:25 [facility] NOT DETECTED (missing) Negative results in the setting ofa respiratory illness may be due to infection with pathogens not detected by this test, or lower respiratory tract infection that may not be detected by nasopharyngeal specimen. ADENOVIRUS - RESP PCR PANEL 2025-05-28 19:25 [employer] [facility] NOT DETECTED (missing) Y Negative results in the setting ofa respiratory illness may be due to infection with pathogens not detected by this test, or lower respiratory tract infection that may not be detected by nasopharyngeal specimen. Result panel 2 RHINOVIRUS/ENTEROVIRUS 2025-06-05 01:43 [facility] DETECTED (missing) Human Rhinovirus/Enterovirus detected by the [facility] [employer] RP2.1 Panel, a multiplexed nucleic acid test intended for the simultaneous qualitative detection and differentiation of nucleic acids from multiple viral and bacterial respiratory organisms. SARS-CoV-2 -RESP PCR PANEL 2025-06-05 01:43 [facility] NOT DETECTED (missing) A negative test result for this test indicates that SARS-CoV-2 RNA was not present in the specimen above the limit of detection. Testing performed on the [employer] RP2.1 Panel, a multiplexed nucleic acid repiratory panel. Negative results do not preclude infection with SARS-CoV-2 virus and should not be the sole basis of a patient management decision. In some patients repeat testing at various time points may be necessary for virus detection. False-negative results may arise from improper sample collection, degradation of viral RNA during shipping or storage, the presence of PCR inhibitors, and/or mutation in the SARS-CoV-2 virus. INFLUENZA A- RESP PCR PANEL 2025-06-05 01:43 [facility] NOT DETECTED (missing) Influenza A including subtypes H1, H3, and H1-2009 not detected by the [employer] RP2.1 Panel, a multiplexed nucleic acid test intended for the simultaneous qualitative detection and differentiation of nucleic acids from multiple viral and bacterial respiratory organisms. B. PARAPERTUSSIS- RESP PCR [place] 2025-06-05:43 [employer] [facility] [employer] NOT DETECTED (missing) Negative results for this organism do not preclude infection with this organism and may require additional laboratory testing (e.g., bacterial and viral culture, immunofluorescence, and radiography) when evaluating a patient with possible respiratory tract infection. B. PERTUSSIS- RESP PCR PANEL 2025-06-05:43 [employer] [facility] [employer] NOT DETECTED (missing) Negative results for this organism do not preclude infection with this organism and may require additional laboratory testing (e.g., bacterial and viral culture, immunofluorescence, and radiography) when evaluating a patient with possible respiratory tract infection. C. PNEUMONIAE- RESP PCR PANEL 2025-06-05:43 [facility] NOT DETECTED (missing) Negative results for this organism do not preclude infection with this organism and may require additional laboratory testing (e.g., bacterial and viral culture, immunofluorescence, and radiography) when evaluating a patient with possible respiratory tract infection. M. PNEUMONIAE- RESP PCR PANEL 2025-06-05:43 [employer] [facility] NOT DETECTED (missing) Negative results for this organism do not preclude infection with this organism and may require additional laboratory testing (e.g., bacterial and viral culture, immunofluorescence, and radiography) when evaluating a patient with possible respiratory tract infection. CORONAVIRUS 229E-RESP PCR 2025-06-05 01:43 [facility] NOT DETECTED (missing) Negative results in the setting ofa respiratory illness may be due to infection with pathogens not detected by this test, or lower respiratory tract infection that may not be detected by nasopharyngeal specimen. CORONAVIRUS HKU1-RESP PCR 2025-06-05 01:43 [facility] NOT DETECTED (missing) Negative results in the setting ofa respiratory illness may be due to infection with pathogens not detected by this test, or lower respiratory tract infection that may not be detected by nasopharyngeal specimen. CORONAVIRUS HW68-EBBD PCR 2025-06-05 01:43 [facility] NOT DETECTED (missing) Negative results in the setting ofa respiratory illness may be due to infection with pathogens not detected by this test, or lower respiratory tract infection that may not be detected by nasopharyngeal specimen. CORONAVIRUS [id number]-ZPHQ PCR 2025-06-05 01:43 [facility] NOT DETECTED (missing) Negative results in the setting ofa respiratory illness may be due to infection with pathogens not detected by this test, or lower respiratory tract infection that may not be detected by nasopharyngeal specimen. HUMAN METAPNEUMOVIRUS 2025-06-05 01:43 [facility] NOT DETECTED (missing) Negative results in the setting ofa respiratory illness may be due to infection with pathogens not detected by this test, or lower respiratory tract infection that may not be detected by nasopharyngeal specimen. INFLUENZA B - RESP PCR PANEL 2025-06-05 01:43 [facility] NOT DETECTED (missing) Negative results in the setting ofa respiratory illness may be due to infection with pathogens not detected by this test, or lower respiratory tract infection that may not be detected by nasopharyngeal specimen. PARAINFLUENZA VIRUS 1 2025-06-05 01:43 [facility] NOT DETECTED (missing) Negative results in the setting ofa respiratory illness may be due to infection with pathogens not detected by this test, or lower respiratory tract infection that may not be detected by nasopharyngeal specimen. PARAINFLUENZA VIRUS 2 2025-06-05 01:43 [facility] NOT DETECTED (missing) Negative results in the setting ofa respiratory illness may be due to infection with pathogens not detected by this test, or lower respiratory tract infection that may not be detected by nasopharyngeal specimen. PARAINFLUENZA VIRUS 3 2025-06-05 01:43 [facility] NOT DETECTED (missing) Negative results in the setting ofa respiratory illness may be due to infection with pathogens not detected by this test, or lower respiratory tract infection that may not be detected by nasopharyngeal specimen. PARAINFLUENZA VIRUS 4 2025-06-05 01:43 [facility] NOT DETECTED (missing) Negative results in the setting ofa respiratory illness may be due to infection with pathogens not detected by this test, or lower respiratory tract infection that may not be detected by nasopharyngeal specimen. RSV- RESP PCR PANEL 2025-06-05 01:43 [facility] NOT DETECTED (missing) Negative results in the setting ofa respiratory illness may be due to infection with pathogens not detected by this test, or lower respiratory tract infection that may not be detected by nasopharyngeal specimen. ADENOVIRUS - RESP PCR PANEL 2025-06-05 01:43 [facility] NOT DETECTED (missing) Y Negative results in the setting ofa respiratory illness may be due to infection with pathogens not detected by this test, or lower respiratory tract infection that may not be detected by nasopharyngeal specimen. Result panel 3 NUCLEATED RED BLOOD CELLS AUTO 2025-06-05 02:00 [facility] 0.0 /100wbc (missing) NRBC ABSOLUTE COUNT (AUTO) 2025-06-05 02:00 [facility] 0.00 x10 3/ul (missing) BASOPHILS # (AUTO) 2025-06-05 02:00 [facility] 0.1 10 3/ul (missing) EOSINOPHILS # (AUTO) 2025-06-05 02:00 [facility] 0.2 10 3/ul (missing) BILIRUBIN,TOTAL 2025-06-05 02:00 [facility] 0.4 mg/dl As of February 2023 testing method has changed, this may include reference ranges. MONOCYTES # (AUTO) 2025-06-05 02:00 [facility] 0.8 10 3/ul (missing) CREATININE 2025-06-05 02:00 [facility] 0.9 mg/dl As of February 2023 testing method has changed, this may include reference ranges. ALBUMIN/GLOBULIN RATIO 2025-06-05 02:00 [facility] 1.4 (missing) (missing) ALT ALANINE AMINOTRANSFERASE 2025-06-05 02:00 [facility] 10 iu/l As of February 2023 testing method has changed, this may include reference ranges. MEAN PLATELET VOLUME 2025-06-05 02:00 [facility] 10.0 fl (missing) WHITE BLOOD COUNT 2025-06-05 02:00 [facility] 10.8 x10 3/ul (missing) CHLORIDE 2025-06-05 02:00 [facility] 104 mmol/l As of February 2023 testing method has changed, this may include reference ranges. GLUCOSE 2025-06-05 02:00 [facility] 118 mg/dl As of February 2023 testing method has changed, this may include reference ranges. AST ASPARTATE AMINOTRANSFERASE 2025-06-05 02:00 [facility] 12 iu/l As of February 2023 testing method has changed, this may include reference ranges. ANION GAP 2025-06-05 02:00 [facility] 13.0 (missing) (missing) RED CELL DISTRIBUTION WIDTH 2025-06-05 02:00 [facility] 13.2 % (missing) HGB - HEMOGLOBIN 2025-06-05 02:00 [facility] 13.2 g/dl (missing) SODIUM 2025-06-05 02:00 [facility] 140 mmol/l (missing) LYMPHOCYTES # (AUTO) 2025-06-05 02:00 [facility] 2.7 10 3/ul (missing) BUN - BLOOD UREA NITROGEN 2025-06-05 02:00 [facility] 23 mg/dl As of February 2023 testing method has changed, this may include reference ranges. CARBON DIOXIDE - CO2 2025-06-05 02:00 [facility] 23 mmol/l As of February 2023 testing method has changed, this may include reference ranges. MEAN CORPUSCULAR HEMOGLOBIN 2025-06-05 02:00 [facility] 28.3 pg (missing) GLOBULIN 2025-06-05 02:00 [facility] 3.0 g/dl (missing) POTASSIUM 2025-06-05 02:00 [facility] 3.5 mmol/l As of February 2023 testing method has changed, this may include reference ranges. MEAN CORPUSCULAR HGB CONC 2025-06-05 02:00 [facility] 31.7 g/dl (missing) PLT - PLATELET COUNT 2025-06-05 02:00 [facility] 331 10 3/ul (missing) ALBUMIN 2025-06-05 02:00 [facility] 4.2 g/dl As of February 2023 testing method has changed, this may include reference ranges. TROPONIN I HIGH SENSITIVITY 2025-06-05 02:00 [facility] 4.6 ng/l A HIGH SENSITIVITY TROPONIN result of >= 14.9 ng/L for females is considered POSITIVE. A HIGH SENSITIVITY TROPONIN result of >= 19.8 ng/L for males is considered POSITIVE. A HIGH SENSITIVITY TROPONIN result of >= 17.9 ng/L for unspecified is considered POSITIVE. RED BLOOD COUNT 2025-06-05 02:00 [facility] 4.67 10 6/ul (missing) HCT - HEMATOCRIT 2025-06-05 02:00 [facility] 41.7 % (missing) ALKALINE PHOSPHATASE 2025-06-05 02:00 [facility] 48 iu/l As of February 2023 testing method has changed, this may include reference ranges. NEUTROPHILS # (AUTO) 2025-06-05 02:00 [facility] 7.1 10 3/ul (missing) TOTAL PROTEIN 2025-06-05 02:00 [facility] 7.2 g/dl As of February 2023 testing method has changed, this may include reference ranges. GFR - MDRD 2025-06-05 02:00 [facility] 71 (missing) The IDMS-traceable MDRD Study Equation has been validated extensively in and populations between the ages of 18 and 70 with impaired kidney function (eGFR < 60 mL/min/1.73m2) and has shown good performance for patients with all common causes of kidney disease. Although this equation has not been validated for patients older than 70, an MDRD-derived eGFR may still be a useful tool for providers caring for patients older than 70. References: http://www.nkdep. nih.gov/lab-evalu ation/gfr/creatin ine-stand ardization, last updated October 2011. MEAN CORPUSCULAR VOLUME 2025-06-05 02:00 [facility] 89.3 fl (missing) CALCIUM 2025-06-05 02:00 [facility] 9.2 mg/dl As of February 2023 testing method has changed, this may include reference ranges. HCG,QUALITATIVE BLOOD 2025-06-05 02:00 [facility] NEGATIVE (missing) INTERPRETIVE INFORMATION QUALITATIVE SERUM hCG: Reference range based on a 25 mIU/mL cutoff Non- females: Negative females: Positive Social History date description facility
[2025-08-07 15:51] LABS: HCT - HEMATOCRIT 38.4 % (37.0-47.0); HGB - HEMOGLOBIN 12.1 g/dL (12.0-16.0); MEAN PLATELET VOLUME 10.5 fL (7.9-10.8); NRBC ABSOLUTE COUNT (AUTO) 0.00 x10^3/uL; NUCLEATED RED BLOOD CELLS AUTO 0.0 /100WBC; PLT - PLATELET COUNT 320 10^3/uL (130-450); RED CELL DISTRIBUTION WIDTH 13.6 % (12.0-15.0)
[2025-08-07 16:00] LABS: ALT ALANINE AMINOTRANSFERASE 13.0 IU/L (10-60); AST ASPARTATE AMINOTRANSFERASE 13.0 IU/L (10-42); BUN - BLOOD UREA NITROGEN 17.0 mg/dL (6-20); CARBON DIOXIDE - CO2 30.0 mmol/L (21-32); CREATININE 0.9 mg/dL (0.6-1.3); GFR - MDRD 71.0 (>89)
[2025-08-07 16:36] LABS: HCG UR QUAL NEGATIVE
--- NOTE | 2025-08-07 17:21 | CT Report ---
PROCEDURE: CT Head WO INDICATIONS: severe headache after intercourse TECHNIQUE: CT of the head was performed, without intravenous contrast. Reformats: Coronal and sagittal. For radiation dose reduction, the following was used: automated exposure control, adjustment of mA and/or kV according to patient size. COMPARISON: None. FINDINGS: Image quality: Diagnostic. CSF spaces: Basal cisterns are patent. No extra-axial fluid collections. Ventricles are normal in size and shape. Brain: No midline shift. No intracranial mass effect or hemorrhage. Hummel- white matter interface is normal. Skull and face: Calvarium and visualized facial bones are intact, without suspicious lesions. Sinuses: Visualized sinuses and mastoids are clear. IMPRESSION: No acute intracranial pathology. Reviewed by: Gil Seymour MD on 08/07/2025 4:17 PM [facility] Approved by: Gil Seymour MD on 08/07/2025 4:17 PM [facility] Station ID: [id number]
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
[2025-08-07] MEDS: KETOROLAC 15 MG/ML VIAL IVP STA (17:34)
[2025-08-07] MEDS: SODIUM CHLORIDE 0.9% 1,000 ML IV STA (17:34)
[2025-08-07] MEDS: METOPROLOL SUCCINATE 50 MG TABLET PO STA (17:59)
[2025-08-07] MEDS: METOCLOPRAMIDE 10 MG/2 ML VIAL IVP STA (18:01)
[2025-08-07] MEDS: DEXAMETHASONE 10 MG/ML VIAL IVP STA (18:20)
[2025-08-07] MEDS: MORPHINE 10 MG/ML VIAL IVP STA (18:20)
[2025-08-07] MEDS: DROPERIDOL 5 MG/2 ML VIAL IVP STA (18:59)
--- NOTE | 2025-08-07 20:07 | CT Report ---
PROCEDURE: CT Angio Head/Neck INDICATIONS: migraine CONTRAST: 100 ML OMNI 300 TECHNIQUE: After the administration of intravenous contrast, images were acquired from the aortic arch through the [place]. 3-dimensional awtoyyj-ptbhedmaa-iayskvnlua (MIP) and volume rendering reformats were acquired of the central intracranial vasculature and neck separately. COMPARISON: CT head noncontrast FINDINGS: Image quality: Diagnostic. Cerebral CT Angiogram: Internal carotid arteries: No acute findings. Intracranial ICA are patent with no significant stenosis. No occlusion. No aneurysm. Anterior cerebral arteries: Unremarkable. No significant stenosis. No occlusion. No aneurysm. Middle cerebral arteries: Unremarkable. No significant stenosis. No occlusion. No aneurysm. Posterior cerebral arteries: Unremarkable. No significant stenosis. No occlusion. No aneurysm. Basilar artery: Unremarkable. No significant stenosis. No occlusion. No aneurysm. Vertebral arteries: Unremarkable as visualized. Dural venous sinuses: Unremarkable given phase of enhancement. Other: Arterial phase appearance of the brain parenchyma is unremarkable. Neck CT Angiogram: Internal carotid arteries: Unremarkable. No significant stenosis. No dissection or occlusion. Common carotid arteries: Unremarkable. No significant stenosis. No dissection or occlusion. External carotid arteries: Unremarkable. No occlusion. Vertebral arteries: Unremarkable. No significant stenosis. No dissection or occlusion. Aortic Arch and Mediastinum: Partially visualized aortic arch unremarkable without evidence of aneurysm. Origins of the great vessels unremarkable. Other: Arterial phase soft tissues of the neck and chest are unremarkable. IMPRESSION: No significant intracranial arterial abnormalities are seen. No hemodynamically significant stenosis can be seen within the arteries of the neck. The estimate of stenosis included in the report of the imaging study was calculated using the NASCET method Reviewed by: Manju Palma MD, PhD on 08/07/2025 8:03 PM PST Approved by: Manju Palma MD, PhD on 08/07/2025 8:03 PM PST Station ID: [id number]
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
[2025-08-07] MEDS ORDERED: ONDANSETRON 4 MG/2 ML VIAL IVP PRN (22:36)
[2025-08-07] MEDS ORDERED: ALBUTEROL NEB 2.5 MG/3 ML INH PRN (22:51)
[2025-08-07] MEDS: SODIUM CHLORIDE 0.9% 1,000 ML IV SCH (22:54)
[2025-08-07] MEDS: HYDROmorphone 0.5 MG/0.5 ML SYRINGE IVP PRN (22:54)
[2025-08-07] MEDS: HYDROmorphone 0.5 MG/0.5 ML SYRINGE IVP STA (23:03)
[2025-08-08] MEDS: KETOROLAC 30 MG/ML VIAL IVP PRN (00:18)
[2025-08-08] MEDS: DEXAMETHASONE 10 MG/ML VIAL IVP ONE (00:18)
[2025-08-08] MEDS: ACETAMINOPHEN 325 MG TABLET PO PRN (05:32)
[2025-08-08] MEDS: METOPROLOL SUCCINATE 50 MG TABLET PO SCH (08:27)
[2025-08-08] MEDS: ATORVASTATIN 10 MG TABLET PO SCH (08:27)
[2025-08-08] MEDS: oxyCODONE 5 MG TABLET PO PRN (09:49)
[2025-08-08] MEDS ORDERED: NICOTINE 14 MG PATCH TOP PRN (10:22)
[2025-08-08] MEDS: BUTALB/ACETAM/CAFF 50/325/40MG TABLET PO PRN (11:12)
[2025-08-08] MEDS: MAGNESIUM SULFATE 2 GRAM 2 GM/50 ML BAG IV ONE (11:15)
--- NOTE | 2025-08-08 15:25 | PROVIDER PROGRESS NOTE ---
Subjective Prog Note Date Prog Note Date: 08/08/25 Subjective Subjective: She has been resting and getting meds all day. This headache has been ongoing for a week, but worse for several days. She is not having any n/v, no light or noise sensitivity. The headache is much much worse when she gets up. She is most comfortable when laying flat with her lower extremities slightly elevated. She got up briefly to try to brush her teeth and get to the bathroom but had extreme pain. When she gets up, she has associated vertigo which she describes as slight and tinnitus. She said the onset was sudden in nature, but not the worst headache of her life. Meds do not seem to help, but what does seem to help is position. she has tried to sleep this headache off and that does not seem to be working. She has also tried at home to treat it with caffeine. She has not smoked in a week because she has not wanted to and she has not wanted to be upright to do so. Her mother of metastatic melaoma to the brain. She does have a history of headache, but this one is more severe. it is occipital. it is not worsened by flexion of her neck. she has noted some neck popping when she moves her neck. She has h/o treatment resistent hypertension, and was hypertensive at the time that she was in the ED, but not since that time. She tells me that her blood pressure is actually lower than usual since she has been here on the med surg floor. Current Medications Current Medications Current Medications: Current Medications Generic Name Dose Route Start Last Admin Trade Name Hi PRN Reason Stop Dose Admin Acetaminophen 650 mg 08/07/25 22:36 08/08/25 05:32 Acetaminophen 325 Mg Tablet PO 650 mg Q4HR PRN Administration Pain 1 to 4, or Fever Acetaminophen/Butalbital/Caffeine 1 tab 08/08/25 10:21 08/08/25 11:12 Butalb/Acetam/Caff 50/325/40mg Tablet PO 1 tab Q4HR PRN Administration HEADACHE Albuterol 2.5 mg 08/07/25 22:51 Albuterol Neb 2.5 Mg/3 Ml INH RTQID PRN shortness of breath or wheezing Atorvastatin Calcium 20 mg 08/08/25 09:00 08/08/25 08:27 Atorvastatin 10 Mg Tablet PO 20 mg DAILY LILY Administration Diphenhydramine HCl 25 mg 08/07/25 21:53 Diphenhydramine Inj 50 Mg/Ml Vial IVP Q6H PRN headache Hydrochlorothiazide 25 mg 08/08/25 09:00 08/08/25 08:26 Hydrochlorothiazide 25 Mg Tablet PO 25 mg DAILY LILY Administration Hydromorphone HCl 0.5 mg 08/07/25 22:36 08/08/25 15:12 Hydromorphone 0.5 Mg/0.5 Ml Syringe IVP 0.5 mg Q2H PRN Administration Pain 8 to 10 Sodium Chloride 1,000 mls @ 100 mls/hr 08/07/25 22:36 08/08/25 08:40 Normal Saline 0.9% IV 100 mls/hr .Q10H LILY Administration Ketorolac Tromethamine 30 mg 08/07/25 21:53 08/08/25 13:52 Ketorolac 30 Mg/Ml Vial IVP 08/12/25 21:52 30 mg Q6H PRN Administration headache Lisinopril 10 mg 08/08/25 09:00 08/08/25 08:26 Lisinopril 5 Mg Tablet PO 10 mg BID LILY Administration Metoprolol Succinate 50 mg 08/08/25 09:00 08/08/25 08:27 Metoprolol Succinate 50 Mg Tablet PO 50 mg BID LILY Administration Nicotine 1 patch 08/08/25 10:22 Nicotine 14 Mg Patch TOP DAILY PRN cravings Ondansetron HCl 4 mg 08/07/25 22:36 Ondansetron 4 Mg/2 Ml Vial IVP Q6HR PRN Nausea / Vomiting Oxycodone HCl 5 mg 08/07/25 22:36 08/08/25 13:52 Oxycodone 5 Mg Tablet PO 5 mg Q4HR PRN Administration Pain 5 to 7 Objective Vital Signs/Intake & Output Vital Signs: Vital Signs x48h Temp Pulse Resp BP Pulse Ox 08/08/25 12:32 36.9 C 65 16 132/78 H 97 08/08/25 08:07 36.6 C 69 16 137/99 H 97 Intake & Output: Intake & Output 08/05/25 08/06/25 08/07/25 08/08/25 23:59 23:59 23:59 23:59 Intake Total 1467 / 1467 Balance 1467 / 1467 Weight (kg) 78.5 kg Objective General Appearance: positive No acute distress and Alert Eyes Bilateral: positive Normal inspection, PERRL and Conjunctivae nml ENT: positive ENT inspection nml Neck: positive Nml inspection; negative Kernig's sign or Brudzinski's sign Respiratory: positive No respiratory distress and Breath sounds nml Cardiovascular: positive Regular rate & rhythm Abdomen: positive No distention Skin: positive Color nml and No rash Extremities: positive Non-tender and No pedal edema Neurologic/Psychiatric: positive Oriented x3, Motor nml, Sensation nml and Mood/affect nml; negative Weakness, Facial droop or Slurred/abnml speech Lab Results 08/07/25 15:43 08/07/25 15:43 Other Labs: Lab Results x24hrs 08/07/25 08/07/25 Range/Units 16:25 15:43 WBC 6.7 (4.8-10.8) x10^3/uL RBC 4.33 (4.20-5.40) 10^6/uL Hgb 12.1 (12.0-16.0) g/dL Hct 38.4 (37.0-47.0) % MCV 88.7 (81.0-99.0) fL MCH 27.9 (27.0-31.0) pg MCHC 31.5 L (32.0-36.0) g/dL RDW 13.6 (12.0-15.0) % Plt Count 320 (130-450) 10^3/uL MPV 10.5 (7.9-10.8) fL Neut # (Auto) 4.2 (1.5-6.6) 10^3/uL Lymph # (Auto) 1.8 (1.5-3.5) 10^3/uL [place] # (Auto) 0.5 (0.0-1.0) 10^3/uL Eos # (Auto) 0.2 (0.0-0.7) 10^3/uL Baso # (Auto) 0.1 (0.0-0.1) 10^3/uL Absolute Nucleated RBC 0.00 x10^3/uL Nucleated RBC % 0.0 /100WBC Sodium 140 (135-145) mmol/L Potassium 3.6 (3.5-4.5) mmol/L Chloride 105 (101-111) mmol/L Carbon Dioxide 30 (21-32) mmol/L Anion Gap 5.0 L (6-13) BUN 17 (6-20) mg/dL Creatinine 0.9 (0.6-1.3) mg/dL Estimated GFR (MDRD) 71 L (>89) Glucose 112 H (74-104) mg/dL Calcium 8.6 (8.5-10.3) mg/dL Total Bilirubin 0.2 (0.2-1.0) mg/dL AST 13 (10-42) IU/L ALT 13 (10-60) IU/L Alkaline Phosphatase 44 (42-121) IU/L Total Protein 5.8 L (6.4-8.9) g/dL Albumin 4.0 (3.2-5.5) g/dL Globulin 1.8 L (2.1-4.2) g/dL Albumin/Globulin Ratio 2.2 (1.0-2.2) Urine HCG, Qual NEGATIVE Assessment/Plan Problem List (1) Headache: Impression: Positional headache ongoing for a week. Is been resistant to all treatments administered. She has been given Tylenol, Toradol, Fioricet, Dilaudid, oxycodone. What makes the headache worse is in the upright position, what makes the headache better is lying flat. This headache started about a week ago as a postcoital headache but has gotten progressively worse. It is intractable at this time. She received 1 dose of IV dexamethasone in the emergency department. Today I also tried 2 doses of sumatriptan without relief. The patient has had no recent spinal procedures. She does have a remote history of a spinal headache associated with an LP many years ago. She did get a blood patch at that time which was successful. This headache is clearly orthostatic in nature. I have no reason to think that this patient has a spinal fluid leak. It is possible that blood patch can help orthostatic headache even in the absence of spinal fluid leak or an spinal fluid leak that is not detected. Given the intractable nature of this headache I would like to get an MRI of the brain. This is ordered for tomorrow morning. The patient will receive 1 mg of Ativan IV on-call to MRI as she has had difficulties getting MRIs in the past. Briefly discussed this patient with anesthesia on-call provider. I would like to complete diagnostic workup and then will discuss further with anesthesia. Will consider blood patch if anesthesia is willing to place 1. (2) Hypertension: Impression: No association of her blood pressure with this headache. She has a longstanding history of treatment resistant hypertension. Her blood pressure has actually been most normotensive today. She points this out to me with some surprise. We have continued her home antihypertensive medications.Selected Entries 08/08/25 00:10 08/08/25 05:28 08/08/25 08:07 Blood Pressure [Right Brachial artery] 147/95 H 156/97 H 137/99 H 08/08/25 12:32 08/08/25 15:45 08/08/25 19:55 Blood Pressure [Right Brachial artery] 132/78 H 158/103 H 154/107 H Qualifiers: Hypertension type: primary hypertension Qualified Code(s): I10 - Essential (primary) hypertension (3) Tobacco dependence: Impression: She has not been smoking much at all in the last week. Being upright to smoke makes her headache worse. And she states when she tried to smoke the other day just was not desirable at all. She has a nicotine patch in place currently. I discussed briefly with her the idea of smoking cessation today. This patient's diagnosis and treatment plan was discussed this AM with attending physician as a part of multi disciplinary rounding meeting. I have spent 58 minutes in the care of this patient today. This includes time [id number], review and ordering of diagnostic imaging and laboratory studies and consultation with other providers. Monitoring the patient's signs symptoms, evaluation of medication effectiveness and patient's response to treatment.
--- NOTE | 2025-08-08 16:18 | PHARMACY PROGRESS NOTE ---
Best Possible Medication History Admit Date and Time: 08/07/252144 Home Medications Medication Instructions Recorded Confirmed Type hydrochlorothiazide 25 mg tablet 25 mg PO QDAY 5 06/11/25 History atorvastatin 20 mg tablet (Lipitor) 20 mg PO QDAY 05/1406/11/25 History losartan 50 mg tablet (Cozaar) 50 mg PO BID 08/08/25 History metoprolol tartrate 50 mg tablet 50 mg PO BID 08/08/25 History Processed by: Pharmacy Medications reviewed in ED?: No Medication History completed: Yes Patient Interview: Completed (Patient states she takes her medications about 50% of the time. Confirmed with last fills of all medications for 90ds back in January and February 2025) Secondary Source(s): Pharmacy records [facility] Statement: As the person ultimately responsible for medication therapy, providers are able to order a medication from an existing home medication list in [facility] via the "Reconcile Routine" prior to Confirmation of that medication by administrative support manager. Such practice is discouraged except when the physician, in their clinical judgment, deems that a medical need exists for a medication without regard to previous use.
[2025-08-08] MEDS: DOCUSATE SODIUM 250 MG CAPSULE PO SCH (22:33)
[2025-08-09] MEDS ORDERED: SODIUM CHLORIDE FLUSH 0.9% 10 ML SYRINGE ONE ×2 (00:40→03:02)
[2025-08-09] MEDS: LORazepam 2 MG/ML VIAL IVP PRN (11:05)
--- NOTE | 2025-08-09 17:08 | PROVIDER PROGRESS NOTE ---
Subjective Prog Note Date Prog Note Date: 08/09/25 Subjective Subjective: She still has a terrible headache when she is upright. I am awaiting MRI result. She is not able to sit up without pain that is severe and disabling. She has been upright only long enough to get to the bathroom, perform oral care and eat quickly. Current Medications Current Medications Current Medications: Current Medications Generic Name Dose Route Start Last Admin Trade Name Freq PRN Reason Stop Dose Admin Acetaminophen 650 mg 08/07/25 22:36 08/08/25 05:32 Acetaminophen 325 Mg Tablet PO 650 mg Q4HR PRN Administration Pain 1 to 4, or Fever Acetaminophen/Butalbital/Caffeine 1 tab 08/08/25 10:21 08/08/25 11:12 Butalb/Acetam/Caff 50/325/40mg Tablet PO 1 tab Q4HR PRN Administration HEADACHE Albuterol 2.5 mg 08/07/25 22:51 Albuterol Neb 2.5 Mg/3 Ml INH RTQID PRN shortness of breath or wheezing Atorvastatin Calcium 20 mg 08/08/25 09:00 08/09/25 07:58 Atorvastatin 10 Mg Tablet PO 20 mg DAILY LILY Administration Diphenhydramine HCl 25 mg 08/07/25 21:53 Diphenhydramine Inj 50 Mg/Ml Vial IVP Q6H PRN headache Docusate Sodium 250 mg 08/08/25 21:45 08/09/25 07:57 Docusate Sodium 250 Mg Capsule PO 250 mg DAILY LILY Administration Hydrochlorothiazide 25 mg 08/08/25 09:00 08/09/25 07:58 Hydrochlorothiazide 25 Mg Tablet PO 25 mg DAILY LILY Administration Hydromorphone HCl 0.5 mg 08/07/25 22:36 08/09/25 14:58 Hydromorphone 0.5 Mg/0.5 Ml Syringe IVP 0.5 mg Q2H PRN Administration Pain 8 to 10 Sodium Chloride 1,000 mls @ 100 mls/hr 08/07/25 22:36 08/09/25 15:47 Normal Saline 0.9% IV Not Given .Q10H LILY Ketorolac Tromethamine 30 mg 08/07/25 21:53 08/08/25 13:52 Ketorolac 30 Mg/Ml Vial IVP 08/12/25 21:52 30 mg Q6H PRN Administration headache Lisinopril 10 mg 08/08/25 09:00 08/09/25 07:58 Lisinopril 5 Mg Tablet PO 10 mg BID LILY Administration Metoprolol Succinate 50 mg 08/08/25 09:00 08/09/25 07:58 Metoprolol Succinate 50 Mg Tablet PO 50 mg BID LILY Administration Nicotine 1 patch 08/08/25 10:22 Nicotine 14 Mg Patch TOP DAILY PRN cravings Ondansetron HCl 4 mg 08/07/25 22:36 Ondansetron 4 Mg/2 Ml Vial IVP Q6HR PRN Nausea / Vomiting Oxycodone HCl 5 mg 08/07/25 22:36 08/09/25 15:50 Oxycodone 5 Mg Tablet PO 5 mg Q4HR PRN Administration Pain 5 to 7 Objective Vital Signs/Intake & Output Reviewed Vital Signs: Yes Vital Signs: Vital Signs x48h Temp Pulse Resp BP Pulse Ox 08/09/25 12:31 36.5 C 61 16 155/99 H 97 Intake & Output: Intake & Output 08/06/25 08/07/25 08/08/25 08/09/25 23:59 23:59 23:59 23:59 Intake Total 3567 / 3567 1480 / 1480 Balance 3567 / 3567 1480 / 1480 Weight (kg) 78.5 kg Objective General Appearance: positive No acute distress and Alert Eyes Bilateral: positive Normal inspection, PERRL and Conjunctivae nml ENT: positive ENT inspection nml Neck: positive Nml inspection; negative Kernig's sign or Brudzinski's sign Respiratory: positive No respiratory distress and Breath sounds nml Cardiovascular: positive Regular rate & rhythm Abdomen: positive No distention Skin: positive Color nml and No rash Extremities: positive Non-tender and No pedal edema Neurologic/Psychiatric: positive Oriented x3, Motor nml, Sensation nml and Mood/affect nml; negative Weakness, Facial droop or Slurred/abnml speech Lab Results 08/07/25 15:43 08/07/25 15:43 Other Labs: Lab Results x24hrs 08/07/25 08/07/25 Range/Units 16:25 15:43 WBC 6.7 (4.8-10.8) x10^3/uL RBC 4.33 (4.20-5.40) 10^6/uL Hgb 12.1 (12.0-16.0) g/dL Hct 38.4 (37.0-47.0) % MCV 88.7 (81.0-99.0) fL MCH 27.9 (27.0-31.0) pg MCHC 31.5 L (32.0-36.0) g/dL RDW 13.6 (12.0-15.0) % Plt Count 320 (130-450) 10^3/uL MPV 10.5 (7.9-10.8) fL Neut # (Auto) 4.2 (1.5-6.6) 10^3/uL Lymph # (Auto) 1.8 (1.5-3.5) 10^3/uL [place] # (Auto) 0.5 (0.0-1.0) 10^3/uL Eos # (Auto) 0.2 (0.0-0.7) 10^3/uL Baso # (Auto) 0.1 (0.0-0.1) 10^3/uL Absolute Nucleated RBC 0.00 x10^3/uL Nucleated RBC % 0.0 /100WBC Sodium 140 (135-145) mmol/L Potassium 3.6 (3.5-4.5) mmol/L Chloride 105 (101-111) mmol/L Carbon Dioxide 30 (21-32) mmol/L Anion Gap 5.0 L (6-13) BUN 17 (6-20) mg/dL Creatinine 0.9 (0.6-1.3) mg/dL Estimated GFR (MDRD) 71 L (>89) Glucose 112 H (74-104) mg/dL Calcium 8.6 (8.5-10.3) mg/dL Total Bilirubin 0.2 (0.2-1.0) mg/dL AST 13 (10-42) IU/L ALT 13 (10-60) IU/L Alkaline Phosphatase 44 (42-121) IU/L Total Protein 5.8 L (6.4-8.9) g/dL Albumin 4.0 (3.2-5.5) g/dL Globulin 1.8 L (2.1-4.2) g/dL Albumin/Globulin Ratio 2.2 (1.0-2.2) Urine HCG, Qual NEGATIVE Assessment/Plan Problem List (1) Headache: Impression: Positional headache ongoing for a week. Is been resistant to all treatments administered. She has been given Tylenol, Toradol, Fioricet, Dilaudid, oxycodone. What makes the headache worse is in the upright position, what makes the headache better is lying flat. This headache started about a week ago as a postcoital headache but has gotten progressively worse. It is intractable at this time. She received 1 dose of IV dexamethasone in the emergency department. This headache is clearly orthostatic in nature. I have no reason to think that this patient has a spinal fluid leak. I have tried rest, IV fluids, antihistamines, antiemetics, NSIADS, APAP, narcotics, sumatriptan. The patient has had no recent spinal procedures. She does have a remote history of a spinal headache associated with an LP many years ago. She did get a blood patch at that time which was successful. It is possible that blood patch can help orthostatic headache even in the absence of spinal fluid leak or an spinal fluid leak that is not detected. Discussed with Dr Berkowitz, who is more in favor of obtaining specialty consultation with neurology prior to attempting treatments that maybe not considered mainstream. Given the intractable nature of this headache I would like to get an MRI of the brain. This is was done at about 11am, I am waiting for the read and have checked in with radiology to let them know that I am waiting. (2) Hypertension: Impression: No association of her blood pressure with this headache. She has a longstanding history of treatment resistant hypertension. Her blood pressure has been trending up once again. We have continued her home antihypertensive medications. Selected Entries 08/09/25 00:15 08/09/25 05:34 08/09/25 08:05 Blood Pressure [Right Brachial artery] 181/112 H 157/100 H 159/105 H 08/09/25 12:31 Blood Pressure [Right Brachial artery] 155/99 H Qualifiers: Hypertension type: primary hypertension Qualified Code(s): I10 - Essential (primary) hypertension (3) Tobacco dependence: Impression: She has not been smoking much at all in the last week. Being upright to smoke makes her headache worse. And she states when she tried to smoke the other day just was not desirable at all. She has a nicotine patch in place currently. This patient's diagnosis and treatment plan was discussed this AM with attending physician as a part of multi disciplinary rounding meeting. I have spent 45 minutes in the care of this patient today. This includes time [id number], review and ordering of diagnostic imaging and laboratory studies and consultation with other providers. Monitoring the patient's signs symptoms, evaluation of medication effectiveness and patient's response to treatment.
--- NOTE | 2025-08-09 17:22 | MRI Report ---
PROCEDURE: MRI Brain WO INDICATIONS: persistent severe headache TECHNIQUE: Multiplanar multisequential MRI of the brain was obtained without contrast COMPARISON: None FINDINGS: CSF spaces: No hydrocephalus. Brain: No intracranial hemorrhage or mass lesion. Diffusion and susceptibility sequences are unremarkable. Brainstem normal. Normal intravascular flow voids present. Skull and face: Calvarium and skull base unremarkable. Sinuses: Sinuses and mastoids are clear. IMPRESSION: Unremarkable MRI of the brain Reviewed by: Josemanuel Anna MD on 08/09/2025 4:18 PM [facility] Approved by: Josemanuel Anna MD on 08/09/2025 4:18 PM [facility] Station ID: [id number]
[2025-08-10 06:01] LABS: HCT - HEMATOCRIT 34.4 % (37.0-47.0); HGB - HEMOGLOBIN 10.6 g/dL (12.0-16.0); MEAN PLATELET VOLUME 11.1 fL (7.9-10.8); NRBC ABSOLUTE COUNT (AUTO) 0.00 x10^3/uL; NUCLEATED RED BLOOD CELLS AUTO 0.0 /100WBC; PLT - PLATELET COUNT 275 10^3/uL (130-450); RED CELL DISTRIBUTION WIDTH 14.1 % (12.0-15.0)
[2025-08-10 06:27] LABS: BUN - BLOOD UREA NITROGEN 21.0 mg/dL (6-20); CARBON DIOXIDE - CO2 29.0 mmol/L (21-32); CREATININE 0.7 mg/dL (0.6-1.3); GFR - MDRD 95.0 (>89)
[2025-08-10] MEDS: ACETAMINOPHEN 500 MG TABLET PO SCH (11:36)
--- NOTE | 2025-08-10 11:56 | PROVIDER PROGRESS NOTE ---
Subjective Prog Note Date Prog Note Date: 08/10/25 Subjective Subjective: Her headache remains intractable. meds are not helping, but she is taking them. Current Medications Current Medications Current Medications: Current Medications Generic Name Dose Route Start Last Admin Trade Name Freq PRN Reason Stop Dose Admin Acetaminophen 650 mg 08/07/25 22:36 08/08/25 05:32 Acetaminophen 325 Mg Tablet PO 650 mg Q4HR PRN Administration Pain 1 to 4, or Fever Acetaminophen 1,000 mg 08/10/25 11:00 08/10/25 11:36 Acetaminophen 500 Mg Tablet PO 1,000 mg TID LILY Administration Acetaminophen/Butalbital/Caffeine 1 tab 08/08/25 10:21 08/08/25 11:12 Butalb/Acetam/Caff 50/325/40mg Tablet PO 1 tab Q4HR PRN Administration HEADACHE Albuterol 2.5 mg 08/07/25 22:51 Albuterol Neb 2.5 Mg/3 Ml INH RTQID PRN shortness of breath or wheezing Atorvastatin Calcium 20 mg 08/08/25 09:00 08/10/25 08:20 Atorvastatin 10 Mg Tablet PO 20 mg DAILY LILY Administration Diphenhydramine HCl 25 mg 08/07/25 21:53 Diphenhydramine Inj 50 Mg/Ml Vial IVP Q6H PRN headache Docusate Sodium 250 mg 08/08/25 21:45 08/10/25 08:20 Docusate Sodium 250 Mg Capsule PO 250 mg DAILY LILY Administration Hydrochlorothiazide 25 mg 08/08/25 09:00 08/10/25 08:20 Hydrochlorothiazide 25 Mg Tablet PO 25 mg DAILY LILY Administration Ketorolac Tromethamine 30 mg 08/07/25 21:53 08/08/25 13:52 Ketorolac 30 Mg/Ml Vial IVP 08/12/25 21:52 30 mg Q6H PRN Administration headache Lisinopril 10 mg 08/08/25 09:00 08/10/25 08:20 Lisinopril 5 Mg Tablet PO 10 mg BID LILY Administration Metoprolol Succinate 50 mg 08/08/25 09:00 08/10/25 08:20 Metoprolol Succinate 50 Mg Tablet PO 50 mg BID LILY Administration Nicotine 1 patch 08/08/25 10:22 Nicotine 14 Mg Patch TOP DAILY PRN cravings Ondansetron HCl 4 mg 08/07/25 22:36 Ondansetron 4 Mg/2 Ml Vial IVP Q6HR PRN Nausea / Vomiting Oxycodone HCl 5 mg 08/07/25 22:36 08/10/25 11:41 Oxycodone 5 Mg Tablet PO 5 mg Q4HR PRN Administration Pain 5 to 7 Objective Vital Signs/Intake & Output Reviewed Vital Signs: Yes Vital Signs: Vital Signs x48h Temp Pulse Resp BP Pulse Ox 08/10/25 07:56 36.7 C 58 L 16 162/104 H 97 08/10/25 05:36 36.4 C L 51 L 14 159/98 H 100 Intake & Output: Intake & Output 08/07/25 08/08/25 08/09/25 08/10/25 23:59 23:59 23:59 23:59 Intake Total 3567 / 3567 2720 / 2720 390 / 390 Balance 3567 / 3567 2720 / 2720 390 / 390 Weight (kg) 78.5 kg Objective General Appearance: positive No acute distress and Alert Eyes Bilateral: positive Normal inspection, PERRL and Conjunctivae nml ENT: positive ENT inspection nml Neck: positive Nml inspection; negative Kernig's sign or Brudzinski's sign Respiratory: positive No respiratory distress and Breath sounds nml Cardiovascular: positive Regular rate & rhythm Abdomen: positive No distention Skin: positive Color nml and No rash Extremities: positive Non-tender and No pedal edema Neurologic/Psychiatric: positive Oriented x3, Motor nml, Sensation nml and Mood/affect nml; negative Weakness, Facial droop or Slurred/abnml speech Lab Results 08/10/25 05:35 08/10/25 05:35 Other Labs: Lab Results x24hrs 08/10/25 Range/Units 05:35 WBC 5.5 (4.8-10.8) x10^3/uL RBC 3.82 L (4.20-5.40) 10^6/uL Hgb 10.6 L (12.0-16.0) g/dL Hct 34.4 L (37.0-47.0) % MCV 90.1 (81.0-99.0) fL MCH 27.7 (27.0-31.0) pg MCHC 30.8 L (32.0-36.0) g/dL RDW 14.1 (12.0-15.0) % Plt Count 275 (130-450) 10^3/uL MPV 11.1 H (7.9-10.8) fL Neut # (Auto) 2.4 (1.5-6.6) 10^3/uL Lymph # (Auto) 2.4 (1.5-3.5) 10^3/uL [place] # (Auto) 0.4 (0.0-1.0) 10^3/uL Eos # (Auto) 0.2 (0.0-0.7) 10^3/uL Baso # (Auto) 0.1 (0.0-0.1) 10^3/uL Absolute Nucleated RBC 0.00 x10^3/uL Nucleated RBC % 0.0 /100WBC Sodium 138 (135-145) mmol/L Potassium 3.7 (3.5-4.5) mmol/L Chloride 103 (101-111) mmol/L Carbon Dioxide 29 (21-32) mmol/L Anion Gap 6.0 (6-13) BUN 21 H (6-20) mg/dL Creatinine 0.7 (0.6-1.3) mg/dL Estimated GFR (MDRD) 95 (>89) Glucose 83 (74-104) mg/dL Calcium 8.2 L (8.5-10.3) mg/dL Assessment/Plan Problem List (1) Headache: Impression: Positional headache ongoing for a week. Is been resistant to all treatments administered. She has been given Tylenol, Toradol, Fioricet, Dilaudid, oxycodone. What makes the headache worse is in the upright position, what makes the headache better is lying flat. This headache started about a week ago as a postcoital headache but has gotten progressively worse. It is intractable at this time. She received 1 dose of IV dexamethasone in the emergency department. This headache is clearly orthostatic in nature. I have no reason to think that this patient has a spinal fluid leak. I have tried rest, IV fluids, antihistamines, antiemetics, NSIADS, APAP, narcotics, sumatriptan. She has gotten 12 doses of IV dilaudid in the last 24 hours (6mg) as well as 6 doses of oxycodone (30mg). The patient has had no recent spinal procedures. She does have a remote history of a spinal headache associated with an LP many years ago. She did get a blood patch at that time which was successful. It is possible that blood patch can help orthostatic headache even in the absence of spinal fluid leak or an spinal fluid leak that is not detected. MRI of the brain is negative. patient has a non focal neurological exam. When she is upright, pain remains severe. She has pain in the base of her skull. She feels like her neck is cracking and popping more. She is able to touch her chin to her chest without worsening of the pain. When she is forced to be upright, the pain begins within seconds. She then will get some symptoms of tinnitis, and occasional light sensitivity if she is forced to be up for a longer period of time. I have been treating her for this for 3 days. I am seeking specialty consultation. (2) Hypertension: Impression: No association of her blood pressure with this headache. She has a longstanding history of treatment resistant hypertension. Her blood pressure has been trending up once again. We have continued her home antihypertensive medications. Selected Entries 08/09/25 12:31 08/09/25 17:00 08/09/25 20:42 Pulse Rate [Brachial] 57 L 65 Blood Pressure [Right Brachial artery] 155/99 H 148/94 H 154/99 H 08/10/25 00:04 08/10/25 05:36 08/10/25 07:56 Pulse Rate [Brachial] 56 L 51 L 58 L Blood Pressure [Right Brachial artery] 140/87 H 159/98 H 162/104 H Qualifiers: Hypertension type: primary hypertension Qualified Code(s): I10 - Essential (primary) hypertension (3) Tobacco dependence: Impression: She has not been smoking much at all in the last week. Being upright to smoke makes her headache worse. And she states when she tried to smoke the other day just was not desirable at all. She has a nicotine patch in place currently. This patient's diagnosis and treatment plan was discussed this AM with attending physician as a part of multi disciplinary rounding meeting. I have spent minutes in the care of this patient today. This includes time [id number], review and ordering of diagnostic imaging and laboratory studies and consultation with other providers. Monitoring the patient's signs symptoms, evaluation of medication effectiveness and patient's response to treatment.
--- NOTE | 2025-08-10 13:48 | Discharge Summary ---
Discharge Summary Admit Date: 08/07/25 Discharge Date: 08/10/25 Discharging Provider: Lottie Faye PA-C Primary Care Provider: Augusto Scruggs MD Code Status: Attempt Resuscitation Discharge Facility [facility]: [facility] DIAGNOSES Discharge Diagnoses with Status of Each Condition: Intractable orthostatic headache Essential HTN, somewhat controlled. tobacco user. HPI History of Present Illness: 34-year-old presenting to the emergency department after headache that came on about a week ago after having intercourse. She noticed it initially went away but then came back shortly after and has had persistent positional headaches since then. She feels symptoms are only relieved with her leaning forward. She has taken Tylenol and ibuprofen with minimal relief. She has no fevers or chills but her pain has radiated to her neck no photophobia no hearing sensitivity. She has no numbness tingling or weakness. Headache was sudden in onset but then has gradually grown worse since then. She describes as an 8 out of 10 in the back of her head and neck. She denies any vision changes she has history of headaches but they usually go away within a few minutes after intercourse. She is not on any blood thinners no recent trauma to the head. No nausea or vomiting. In the ED labs were normal. CT head and CTA head/neck are normal. She received doses of Benadryl, Toradol, morphine, droperidol. She stated that the morphine worked the best. Blood pressure was elevated 150-170/100 and she received home doses of lisinopril and metoprolol. Pain initially improved but coming back again. She reports pain 8 out of 10 when sitting up and 3 out of 10 when lying down. She denies any recent procedures or injections or surgeries. Prior to these episodes she has had these headaches in the past but normally relieved with Tylenol but this time more persistent. HOSPITAL COURSE Hospital Course: Orthostatic Headache: She has been resting and getting meds since admit. This headache has been ongoing for a week [employer], but worse for several days. She is not having any n/v, no light or noise sensitivity. The headache is much much worse when she gets up. She is most comfortable when laying flat with her lower extremities slightly elevated. She got up briefly to try to brush her teeth and get to the bathroom but had extreme pain. When she gets up, she has associated vertigo which she describes as slight and tinnitus. She said the onset was sudden in nature, but not the worst headache of her life. Meds do not seem to help, but what does seem to help is position. she has tried to sleep this headache off and that does not seem to be working. She has also tried at home to treat it with caffeine. She has not smoked in a week because she has not wanted to and she has not wanted to be upright to do so. Her mother of metastatic melaoma to the brain. She does have a history of headache, but this one is more severe. it is occipital. it is not worsened by flexion of her neck. she has noted some neck popping when she moves her neck. Positional headache ongoing for a week. Is been resistant to all treatments administered. She has been given Tylenol, Toradol, Fioricet, Dilaudid, oxycodone. What makes the headache worse is in the upright position, what makes the headache better is lying flat. This headache started about a week ago as a postcoital headache but has gotten progressively worse. It is intractable at this time. She received 1 dose of IV dexamethasone in the emergency department. This headache is clearly orthostatic in nature. I have no reason to think that this patient has a spinal fluid leak. Summary of modalities used: rest, IV fluids, antihistamines, antiemetics, NSIADS, APAP, narcotics, sumatriptan, Fiorcet (one dose). She has gotten 12 doses of IV dilaudid in the last 24 hours (6mg) as well as 6 doses of oxycodone (30mg). The patient has had no recent spinal procedures. She does have a remote history of a spinal headache associated with an LP many years ago. She did get a blood patch at that time which was successful. It is possible that blood patch can help orthostatic headache even in the absence of spinal fluid leak or an spinal fluid leak that is not detected. MRI of the brain is negative. This is a non contrast study patient has a non focal neurological exam. When she is upright, pain remains severe. She has pain in the base of her skull. She feels like her neck is cracking and popping more. She is able to touch her chin to her chest without worsening of the pain. When she is forced to be upright, the pain begins within seconds. She then will get some symptoms of tinnitis, and occasional light sensitivity if she is forced to be up for a longer period of time. I have been treating her for this for 3 days. I have sought specialty consultation, and she will be transferred to [facility] for further evaluation and treatment. I have spoken with Dr Chavez, [place] outpatient neurologist, Dr Crow, [place] [facility] who accepts the patient conditional upon neurology acceptance, Dr Delarosa, [facility] neurologist who agrees to consult on this patient. I have asked that all images (CT head, CTA head and neck, non contrast brain MRI) be digitally pushed to [facility] and that CD be burned to go with patient. Treatment resistant HTN. No association of her blood pressure with this headache. She has a longstanding history of treatment resistant hypertension. Her blood pressure has been trending up once again. We have continued her home antihypertensive medications. Selected Entries 08/09/2512:31 08/09/2517:00 08/09/2520:42 Pulse Rate [Brachial] 57 L 65 Blood Pressure [Right Brachial artery] 155/99 H 148/94 H 154/99 H 08/10/2500:04 08/10/2505:36 08/10/2507:56 Pulse Rate [Brachial] 56 L 51 L 58 L Blood Pressure [Right Brachial artery] 140/87 H 159/98 H 162/104 H Tobacco dependence: She has not been smoking much at all in the last week. Being upright to smoke makes her headache worse. And she states when she tried to smoke the other day just was not desirable at all. She has a nicotine patch in place currently. 14 mcg ALLERGIES Allergies Allergy/AdvReac Type Severity Reaction Status Date / Time No Known Drug Allergies Allergy Verified 08/07/25 14:54 MEDICATIONS Ambulatory Orders Medication Instructions Recorded Confirmed hydrochlorothiazide 25 mg tablet 25 mg PO QDAY 5 06/11/25 atorvastatin 20 mg tablet (Lipitor) 20 mg PO QDAY 05/1406/11/25 losartan 50 mg tablet (Cozaar) 50 mg PO BID 08/08/25 metoprolol tartrate 50 mg tablet 50 mg PO BID 08/08/25 PHYSICAL EXAM AT DISCHARGE Vital Signs: Vital Signs x48h Temp Pulse Resp BP Pulse Ox 08/10/25 15:51 36.8 C 58 L 18 160/119 H 98 08/10/25 14:06 36.5 C 71 16 180/125 H 94 Physical Exam Other/Comments: General Appearance: positive No acute distress and Alert Eyes Bilateral: positive Normal inspection, PERRL and Conjunctivae nml ENT: positive ENT inspection nml Neck: positive Nml inspection; negative Kernig's sign or Brudzinski's sign Respiratory: positive No respiratory distress and Breath sounds nml Cardiovascular: positive Regular rate & rhythm Abdomen: positive No distention Skin: positive Color nml and No rash Extremities: positive Non-tender and No pedal edema Neurologic/Psychiatric: positive Oriented x3, Motor nml, Sensation nml and Mood/affect nml; negative Weakness, Facial droop or Slurred/abnml speech LABS 08/10/25 05:35 08/10/25 05:35 DIAGNOSTIC IMAGING Diagnostic Imaging Results Comments: negative CT head, CTA head and neck, MRI brain wo contrast FOLLOW UP Follow Up: Per discharging facility. I am transferring this patient to a higher level of care. Discharge Plan Discharge Patient Disposition: 02 Transfer Acute Care Hosp Condition: Stable Prescriptions: No Action metoprolol tartrate 50 mg tablet 50 mg PO BID Patient Comments: patient states takes ~50% of the time losartan [Cozaar] 50 mg tablet 50 mg PO BID Patient Comments: patient states takes ~50% of the time hydrochlorothiazide 25 mg tablet 25 mg PO QDAY Patient Comments: patient states takes ~50% of the time atorvastatin [Lipitor] 20 mg tablet 20 mg PO QDAY Patient Comments: patient states takes ~50% of the time Print Language: Italian Follow-up Care: Augusto Scruggs MD [Primary Care Provider, Internal Medicine] Vitals documented within 30 minutes of discharge?: Yes
[2025-08-10] MEDS: HYDROmorphone 0.5 MG/0.5 ML SYRINGE IVP PRN (14:20)
[2025-08-10 17:01] VITALS: O2SAT 98
[2025-08-10 18:08] VITALS: BP 188/101; TEMP 97.7
== END 2025-08-10 18:10 | disposition short-term general hospital (02) | DRG 103 ==
LOC: MS2 14:36 → ED 14:36 → MS2 22:35
PROVIDERS: ADMIT Internal Medicine; ATTEND Internal Medicine
DX: R42 Dizziness and giddiness; I1A.0 Resistant hypertension; H93.19 Tinnitus, unspecified ear; F17.210 Nicotine dependence, cigarettes, uncomplicated; R51.0 Headache with orthostatic component, not elsewhere classified